=== PATIENT | male | born 1935 | race Caucasian/White ===

== ENCOUNTER 2019-06-12 10:32 | Outpatient (CLI) | payer MEDICARE, BC, SELFPAY ==
--- NOTE | 2019-06-12 | XR_ITS ---
WS: [id number] CERVICAL SPINE 5 VIEWS HISTORY: NECK PAIN ACUTE COMPARISON: 10/05/2007 TECHNIQUE: AP and lateral radiographs. Lateral in neutral, flexion and extension. Marked LEFT convex curvature of the cervical spine. Head is tilted to the RIGHT. C4 and C5 anterolist hesis by 2 mm. With flexion and extension there is no significant change in alignment. Moderate disc space narrowing at C6-7. Significant rotation of the vertebral bodies due to the marked RIGHT bending of the head. The lateral masses of C1 and C2 are aligned and the odontoid is intact. XR/XR cervical spine 4-5V 10968 IMPRESSION: 1. Marked LEFT convex curvature cervical spine with progression since 2007. 2. Minimal anterolisthesis of C4 and C5 without instability during flexion and extension.
== END 2019-06-12 10:33 | disposition home or self-care (01) ==
LOC: RADOUTREAD 15:58
PROVIDERS: Family Provider Internal Medicine; PCP Internal Medicine; Visit Provider Internal Medicine
DX: M43.8X2 Other specified deforming dorsopathies, cervical region (principal); M54.2 Cervicalgia

== ENCOUNTER 2019-06-20 12:27 | Outpatient (CLI) | payer MEDICARE, BC, SELFPAY ==
--- NOTE | 2019-06-20 | XR_ITS ---
WS: [id number] PROCEDURE: XR chest 2V* [id number] CLINICAL INFORMATION: COMMUNITY ACQUIRED PNEMONIA COMPARISON: 2016 FINDINGS: Heart: Cardiomegaly. Large esophageal hiatal hernia with air-fluid level. Aortic calcification. Lungs: Chronic emphysematous changes. No acute pulmonary infiltrates. No focal pneumonia. Bones: Thoracic scoliosis and kyphosis. Left lateral rib fractures with callus formation. XR/XR chest 2V* [id number] IMPRESSION: 1. Cardiomegaly with large esophageal hiatal hernia and air-fluid level appear s unchanged. 2. Chronic emphysematous changes. No acute pulmonary infiltrates. 3. Thoracic scoliosis and kyphosis.
== END 2019-06-20 12:28 | disposition home or self-care (01) ==
PROVIDERS: Family Provider Internal Medicine; PCP Internal Medicine; Visit Provider Internal Medicine
DX: J18.9 Pneumonia, unspecified organism (principal); I51.7 Cardiomegaly; K44.9 Diaphragmatic hernia without obstruction or gangrene; J43.9 Emphysema, unspecified; M41.84 Other forms of scoliosis, thoracic region

== ENCOUNTER 2020-03-02 11:27 | Emergency (ER) | payer MEDICARE, BC, SELFPAY ==
[2020-03-02 11:28] VITALS: PULSE 82; RESP 18; TEMP 37.1; O2SAT 94
--- NOTE | 2020-03-02 11:57 | XRR_ITS ---
PROCEDURE INFORMATION: Exam: XR Right Ribs with PA Chest, 3 Views Exam date and time: 03/02/2020 12:31 PM Age: 84 years old Clinical indication: Pain and injury or trauma; Fall; Initial encounter; Rib area; Blunt trauma (contusions or hematomas); Chest wall pain; Right; Additional info: Fall, rib pain TECHNIQUE: Imaging protocol: XR Right ribs 3 views with PA chest. COMPARISON: CR XR chest 2V* [id number] 06/20/2019 10:57 AM FINDINGS: Lungs: Unremarkable. No consolidation. Pleural space: Unremarkable. No pleural effusion. No pneumothorax. Heart/Mediastinum: Large hiatal hernia. Bones/joints: Chronic fracture surgical neck right humerus Fracture of the 7th rib laterally likely chronic. Fracture of the 4th rib laterally likely chronic. XR/XR ribs RT mn 3V w CXR1V 98150 IMPRESSION: 1. Acute rib fracture not clearly visualized. Old rib fractures. 2. Large hiatal hernia.
--- NOTE | 2020-03-02 11:57 | CT_ITS ---
WS: [id number] CT HEAD NONCONTRAST HISTORY: fall TECHNIQUE: Contiguous axial imaging performed through the brain in 2.5 mm imaging. Bone and soft tiss ue windows. Sagittal and coronal reformats reviewed. All CT scans at [facility] use at ast one of these dose optimization techniques: automated exposure control; mA and/or kV adjustment pe r patient size (includes targeted exams where dose is matched to clinical indication); or iterative r econstruction. DLP: 875.43 mGy.cm COMPARISON: 10/04/2016 No acute intracranial hemorrhage, midline shift or mass effect. Moderate to severe bilateral diffuse atrophy and chronic ischemic changes. Similar to the prior exami nation with mild progression. Additional moderate to severe cerebellar atrophy. Small lacunar infarc t anterior limb RIGHT internal capsule. Ventricles: Ventricles and extra-axial spaces are all prominent due to peripheral and central atroph y. Paranasal sinuses: As visualized are clear. Mastoid air cells: Well pneumatized. Calvarium and scalp: Skull is intact with no soft tissue edema or swelling. CT/CT head wo con* [id number] IMPRESSION: 1. No acute intracranial hemorrhage or edema. 2. Moderate to severe diffuse atrophy and chronic ischemic disease. Mild progr ession since 10/04/2016.
--- NOTE | 2020-03-02 12:11 | PC.NURSE ---
received report from morena simms [facility] care.
[2020-03-02 12:43] VITALS: PULSE 39; RESP 16; O2SAT 97
--- NOTE | 2020-03-02 12:43 | PC.NURSE ---
WHILE AT BEDSIDE PT HR IS [address] BYRON GONZALEZ TO OBTAIN EKG. DELEGATED TASK TO [facility] SHE STATED SHE WOULD OBTAIN EKG DAVID.
--- NOTE | 2020-03-02 13:16 | W.ED.FALL ---
HPI - Fall General: Chief Complaint: Fall Stated Complaint: FALL, RIB PAIN Time Seen by Provider: 03/02/20 11:45 Source: patient and family Mode of arrival: ambulatory Limitations: other (dementia) History of Present Illness: HPI Narrative: Patient is an 84-year-old gentleman with Alzheimer's dementia who presents to the emergency department with his with complaints of left lower chest pain following a fall. According to his the patient has had several falls some of which have been occluded head injuries but today his fall was unwitnessed. She did say that she went to his side immediately after the fall and he did not lose consciousness. The patient is unable to tell me the circumstances surrounding his fall. He complains of left lower rib pain but no difficulty breathing or other symptoms. His wants to be sure he does not have any fractures and so brought him in for evaluation. MD complaint: fall Onset (ago): unknown Fall witnessed: no Place fall occurred: home Loss of consciousness: None Prolonged down time: no Symptoms prior to fall: chest pain (left lower rib pain) Context: other (unknown) Associated symptoms-after fall: Reports chest pain; Denies abdominal pain, headache(s) or neck pain Review of Systems General: Reports: 10 or more systems reviewed and unremarkable except in HPI and below Const: Denies: fever(s), chills or body aches Eyes: Denies: change in vision or blurry vision ENMT: Denies: throat pain, enlarged tonsils, odynophagia, hoarseness, mouth pain or swelling of lips/tongue Card: Reports: chest pain; Denies: palpitations, irregular heart rhythm, edema or swelling of feet/ankles Resp: Denies: dyspnea, productive cough or non-productive cough GI: Denies: abdominal pain, nausea or vomiting : Denies: flank pain, dysuria, urinary frequency, urinary urgency or urinary hesitancy Musc: Denies: neck pain, back pain or extremity swelling Skin/Breast: Denies: rash, pruritus or erythema Neuro: Denies: headache(s), numbness in extremities or weakness in extremities Endo: Denies: polyuria, polydipsia or tired all the time Physical Exam Const: COMMON NORMALS: no acute distress, average body habitus, patient oriented x3, no limitations, healthy appearing, alert and well nourished HENMT: COMMON NORMALS: normocephalic, atraumatic and moist oral mucous membranes HEAD & SCALP: normocephalic and atraumatic Eye: COMMON NORMALS: Equal, round and reactive pupils present, EOMs intact bilaterally, conjunctivae normal and no scleral icterus CONJUNCTIVA: Yes conjunctivae normal PUPIL: Yes Equal, round and reactive pupils present Neck/C-Spine: COMMON NORMALS: full ROM, supple, no meningeal signs, no JVD and No carotid bruits CERVICAL SPINE: No Cervical spine tenderness Chest: COMMONS NORMALS: normal inspection of the chest CHEST: Yes localized rib tenderness with anteroposterior compression (left lower ribs) Resp: COMMON NORMALS: normal respiratory effort, No retractions, No use of accessory muscles, clear to auscultation bilaterally and percussion normal AUSCULTATION: clear to auscultation bilaterally PERCUSSION: percussion normal Cardio: COMMON NORMALS: no JVD, regular rate, regular rhythm, S1 normal heart sound present, S2 normal heart sound present, No gallops present (Cardio), No clicks present (Cardio), No murmurs present (Cardio), No rub (Cardio) and Peripheral pulses 2+ throughout RATE: regular rate RHYTHM: regular rhythm HEART SOUNDS: S1 normal heart sound present and S2 normal heart sound present PERIPHERAL PULSES: Peripheral pulses 2+ throughout GI: COMMON NORMALS: Normal to inspection, nondistended, normoactive bowel sounds present, Soft to palpation, non-tender, No hepatosplenomegaly present, no masses and no bruits PALPATION: Yes Soft to palpation and Yes No hepatosplenomegaly present Extremity: COMMON NORMALS: normal to inspection, full ROM, capillary refill normal, no calf tenderness and no pedal edema Neuro: COMMON NORMALS: patient oriented x3 SENSORIUM/ORIENTATION: Yes alert MENINGEAL SIGNS: Yes no meningeal signs Skin: COMMON NORMALS: no rashes or lesions noted, no wounds, turgor normal, no jaundice, no petechiae and no mottling GENERAL SKIN EXAM: no rashes or lesions noted and turgor normal Course Reevaluation(s): Reevaluation #1: Discussed his imaging findings with the patient and his . Negative for acute findings. Old rib fractures which his states is had in the past. We will discharge him home with no new orders. They voiced understanding and are in agreement with plan Time: 13:20 Vital Signs: Vital signs: Vital Signs Temperature 98.7 F 03/02/20 11:28 Pulse Rate 78 03/02/20 13:36 Respiratory Rate 23 H 03/02/20 13:36 Blood Pressure 170/73 03/02/20 13:36 Pulse Oximetry 96 03/02/20 13:36 MDM - Fall MDM Narrative: Medical decision making narrative: 84-year-old gentleman with repeated falls and who had another fall this morning with associated left rib pain. Evaluation in the emergency department was negative for acute findings and he is discharged home with no new orders. Medical Records: Attestation: I reviewed the patient's medical records. Imaging Data^: CT Head: Attestation: I personally reviewed and interpreted this imaging study as follows: Radiologist's impression: [address] [place] [address] CT Scan Report Signed Patient: Gavin Ortiz #: [id number] : 1936Acct#:[id number] Age/Sex: 84 / MADM Date: 03/02/20 Loc: ERRoom/Bed: Attending Dr: Ordering Provider/Ordering MD: Brayan Pickering MD, [facility] [place] Date of Service: 03/02/20 Procedure(s): CT head wo con* [id number] Accession Number(s): [id number] Report Number: [id number] WS: [id number] CT HEAD NONCONTRAST HISTORY: fall TECHNIQUE: Contiguous axial imaging performed through the brain in 2.5 mm imaging. Bone and soft tissue windows. Sagittal and coronal reformats reviewed. All CT scans at [facility] use at least one of these dose optimization techniques: automated exposure control; mA and/or kV adjustment per patient size (includes targeted exams where dose is matched to clinical indication); or iterative reconstruction. DLP: 875.43 mGy.cm COMPARISON: 10/04/2016 No acute intracranial hemorrhage, midline shift or mass effect. Moderate to severe bilateral diffuse atrophy and chronic ischemic changes. Similar to the prior examination with mild progression. Additional moderate to severe cerebellar atrophy. Small lacunar infarct anterior limb RIGHT internal capsule. Ventricles: Ventricles and extra-axial spaces are all prominent due to peripheral and central atrophy. Paranasal sinuses: As visualized are clear. Mastoid air cells: Well pneumatized. Calvarium and scalp: Skull is intact with no soft tissue edema or swelling. CT/CT head wo con* [id number] IMPRESSION: 1. No acute intracranial hemorrhage or edema. 2. Moderate to severe diffuse atrophy and chronic ischemic disease. Mild progression since 10/04/2016. Dictated By:Raegan Bustos DO Signed By:Raegan Bustos DOSigned Date/Time:03/02/20 1301 DD/ 1258 Other Xray: Attestation: I personally reviewed and interpreted this imaging study as follows: Radiologist's impression: [facility] [address] [place] [address] XRay Report Signed Patient: Gavin Ortiz #: [id number] : 8Acct#:[id number] Age/Sex: 84 / MADM Date: 03/02/20 Loc: ERRoom/Bed: Attending Dr: Ordering Provider/Ordering MD: Brayan Pickering MD, [facility] Date of Service: 03/02/20 Procedure(s): XR ribs RT mn 3V w CXR1V 35743 Accession Number(s): [id number] Report Number: [id number] PROCEDURE INFORMATION: Exam: XR Right Ribs with PA Chest, 3 Views Exam date and time: 03/02/2020 12:31 PM Age: 84 years old Clinical indication: Pain and injury or trauma; Fall; Initial encounter; Rib area; Blunt trauma (contusions or hematomas); Chest wall pain; Right; Additional info: Fall, rib pain TECHNIQUE: Imaging protocol: XR Right ribs 3 views with PA chest. COMPARISON: CR XR chest 2V* [id number] 06/20/2019 10:57 AM FINDINGS: Lungs: Unremarkable. No consolidation. Pleural space: Unremarkable. No pleural effusion. No pneumothorax. Heart/Mediastinum: Large hiatal hernia. Bones/joints: Chronic fracture surgical neck right humerus Fracture of the 7th rib laterally likely chronic. Fracture of the 4th rib laterally likely chronic. XR/XR ribs RT mn 3V w CXR1V [id number] IMPRESSION: 1. Acute rib fracture not clearly visualized. Old rib fractures. 2. Large hiatal hernia. Dictated By:Colten Melendez MD Signed By:Colten Melendez MDSigned Date/Time:03/02/20 1248 DD/ 1246 Discharge Plan Discharge Patient Disposition: Home Clinical Impression: Contusion of rib on left side Qualifiers: Encounter type: initial encounter Qualified Code(s): S20.212A - Contusion of left front wall of thorax, initial encounter Fall Qualifiers: Encounter type: initial encounter Qualified Code(s): W19.XXXA - Unspecified fall, initial encounter Condition: Stable Prescriptions: Continued hydrocodone-acetaminophen 5-325 mg tablet 1 tab PO Q4H PRN (Reason: Pain) RF: 0 alprazolam 0.5 mg tablet 0.5 mg PO BID PRN (Reason: Anxiety) RF: 0 pantoprazole 40 mg tablet,delayed release (DR/EC) 40 mg PO PRN RF: 0 iron 325 mg (65 mg iron) Tablet 325 mg PO DAILY RF: 0 aspirin 81 mg Tablet,Chewable 81 mg PO DAILY RF: 0 Adult Multivitamin Gummies 200 mcg Tablet,Chewable 200 mcg PO DAILY RF: 0 Neuriva 1 tab PO DAILY RF: 0 Zofran 1 tab PO PRN RF: 0 Discharge Orders: Discharge Order (Routine); Ordered 03/02/20 Ordered By: Brayan Pickering Referrals: Roland Pinto DO [Primary Care Provider] - 1-3 days Discharge Diet: Usual diet Discharge Activity: Increase activity as tolerated Patient Instructions: Musculoskeletal Pain (ED), Fall Prevention (ED) Activity Restrictions/Additional Instructions: Return for any new or worsening symptoms. Follow-up with your primary care provider within 3 days. Continue home medications. Discharge Date/Time: 03/02/20 13:50 Coding Level of Care Code ED Cathodic Protection Technician for Chg Fwd Exam Comprehensive
--- NOTE | 2020-03-02 13:34 | PC.NURSE ---
PRIOR TO DC PT CM APPEARED TO SHOW A RHYTHM CHANGE INFORMED DR. BYRON GONZALEZ WITH READ BACK TO CONTINUE WITH DC.
[2020-03-02 13:36] VITALS: BP 170/73; PULSE 78; RESP 23; O2SAT 96
== END 2020-03-02 13:50 | disposition home or self-care (01) ==
PROVIDERS: Emergency Provider Family Medicine; Family Provider Internal Medicine; PCP Internal Medicine
DX: S20.212A Contusion of left front wall of thorax, initial encounter (principal); Z79.82 Long term (current) use of aspirin; W19.XXXA Unspecified fall, initial encounter; G30.9 Alzheimer's disease, unspecified; F02.80 Dementia in other diseases classified elsewhere, unspecified severity, without behavioral disturbance, psychotic disturbance, mood disturbance, and anxiety
CPT/HCPCS: 12345; 70450; 71101; 99281; 99283

== ENCOUNTER 2020-06-01 11:44 | Inpatient (IN) | payer MEDICARE, BC, SELFPAY ==
[2020-06-01] VITALS (54 sets, daily range): BP systolic 80–163; BP diastolic 50–120; PULSE 65–98; RESP 14–33; TEMP 36.4; O2SAT 65–99; BMI 27.9
--- NOTE | 2020-06-01 | CT_ITS ---
WS: [id number] CT HEAD TECHNIQUE: Noncontrast CT of the head obtained from the skullbase to the vertex. CLINICAL INFORMATION: POSSIBLE STROKE COMPARISON: February 23, 2020 DLP: [address] scans at [facility] use at least one of these dose optimization techniques: automat ed exposure control; mA and/or kV adjustment per patient size (includes targeted exams where dose is matched to clinical indication); or iterative reconstruction. FINDINGS: No evidence of intracranial hemorrhage or mass effect. Ventricular system and basal cisterns are hanna nt. Moderate small vessel changes with moderate parenchymal volume loss. No extra-axial fluid collect ions. No evidence of mass or mass effect. Normal ramirez-white differentiation. Polypoid mucosal thickening right maxillary sinus. CT/CT head wo con* [id number] IMPRESSION: 1. No evidence of intracranial hemorrhage or mass effect. 2. Moderate small vessel changes with moderate parenchymal volume loss. 3. No acute intracranial findings. Notified True Michelle DO at 06/01/2020 12:07 PM.
--- NOTE | 2020-06-01 11:56 | XR_ITS ---
WS: [id number] Exam: XR chest 1V portable [id number] Date/Time of Exam: 06/01/2020 11:56 AM Reason For Exam: sob Comparison 03/02/2020. Bilateral airspace and interstitial infiltrates noted most marked on the right. Heart size is normal. Large hiatal hernia. The mediastinum is not widened. No pneumothorax or pleural effusion. Old fractu re of the proximal right humerus. XR/XR chest 1V portable [id number] IMPRESSION: 1. Bilateral pulmonary infiltrates most marked on the right. 2. Large hiatal hernia.
--- NOTE | 2020-06-01 11:57 | ECG_ITS ---
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 Measurements Intervals [place] Rate: 84 P: 42 [place]: 174 QRS: 16 QRSD: 85 T: 52 QT: 396 QTc: 468 Interpretive Statements SINUS RHYTHM POSSIBLE LEFT ATRIAL ENLARGEMENT [-0.1mV P WAVE IN V1/V2] Compared to ECG 03/09/2018 00:08:59 Myocardial infarct finding no longer present Electronically Signed On 06-01-2020 16:50:15 COMMERCIAL LINES ASSISTANT by Anton Covarrubias M.D. [email or web address]
--- NOTE | 2020-06-01 11:58 | W.ED.AMS ---
Documented by User: Katelyn Vera MD 06/02/20 01:02 HPI - Altered Mental Status General: Chief Complaint: Syncope Stated Complaint: POSSIBLE STROKE Time Seen by Provider: 06/01/20 11:56 Source: family and EMS Mode of arrival: EMS Limitations: altered mental status and other (Alzheimer's dementia) History of Present Illness: HPI narrative: 84-year-old male with history of Alzheimer's dementia brought in by EMS after his family noticed he was very weak, has recently had lots of falls, speaking less. The symptoms have been progressive since around May 25. He started having cough yesterday. denies fever, nausea, vomiting. He has difficulty communicating because of his Alzheimer's. He has had decreased intake. Unable to get a full HPI due to patient's mental status. MD complaint: altered mental status, confusion and weakness Onset (ago): day(s) Consistency of symptoms: Getting Worse Review of Systems General: Reports: 10 or more systems reviewed and unremarkable except in HPI and below and ROS unobtainable due to mental status Const: Reports: change in appetite; Denies: fever(s) Resp: Reports: dyspnea and non-productive cough Neuro: Reports: weakness in extremities, lack of coordination, difficulty walking, frequent falls, behavioral changes, Slurred speech present and difficulty communicating thoughts Endo: Denies: polyuria, polydipsia or flushing [facility] ED PFSH: Medical History (Updated 06/01/20 @ 19:24 by Zeynep Banuelos MD) Advanced dementia Chronic kidney disease, stage 3 Closed head injury H/O: GI bleed Surgical History (Updated 06/01/20 @ 19:24 by Zeynep Banuelos MD) History of esophagogastroduodenoscopy (EGD) History of nephrectomy Social History (Updated 06/01/20 @ 19:29 by Zeynep Banuelos MD) Smoking and tobacco status: unknown if ever smoked Alcohol intake: unknown Substance/Drug Use: unknown Physical Exam Const: COMMON NORMALS: average body habitus EXAM LIMITATIONS: altered mental status GENERAL APPEARANCE: in distress, lethargic, ill appearing and frail appearing ORIENTATION/CONSCIOUSNESS: Yes awake and Yes lethargic HENMT: COMMON NORMALS: normocephalic and atraumatic HEAD & SCALP: normocephalic and atraumatic; no Acrocyanosis present FACE & SINUS: normal facial exam and face symmetric; no Acrocyanosis present Eye: COMMON NORMALS: Equal, round and reactive pupils present, conjunctivae normal and no scleral icterus ALIGNMENT: Yes alignment normal CONJUNCTIVA: Yes conjunctivae normal PUPIL: Yes Equal, round and reactive pupils present, No Dilated pupils and No Irregular pupils Neck/C-Spine: COMMON NORMALS: full ROM, no lymphadenopathy and supple Resp: EFFORT & INSPECTION: No able to speak in complete sentences, Yes tachypneic, Yes respiratory distress, Yes labored, No Actively coughing, Yes paradoxical thoraco-abdominal movements and Yes audible wheezes AUSCULTATION: crackles, rales, rhonchi, wheezes and bronchovesicular breath sounds Cardio: COMMON NORMALS: regular rate, regular rhythm and No murmurs present (Cardio) RATE: regular rate RHYTHM: regular rhythm GI: COMMON NORMALS: Soft to palpation; negative for No hepatosplenomegaly present INSPECTION: No abdominal wall ecchymosis PALPATION: Yes Soft to palpation, No Tenderness to palpation present (GI), No Guarding due to palpation present (GI), No Rigid due to palpation, No No hepatosplenomegaly present and No Pulsatile mass present : MALE GROIN/PERINEUM EXAM: No ecchymosis, No edema and No erythema Extremity: COMMON NORMALS: negative for no joint enlargement GENERAL: No cyanosis, No edema and No mottling Neuro: SENSORIUM/ORIENTATION: Yes lethargic and Yes stuporous SPEECH: abnormal speech Details: garbled GAIT: Yes Unable to assess gait MOTOR EXAM: no tremor noted, no asterixis and Motor fasciculations not present Skin: COMMON NORMALS: no rashes or lesions noted and no wounds GENERAL SKIN EXAM: no rashes or lesions noted, no jaundice, no mottling, no petechiae and no purpura LESIONS: lesions noted RASHES: rash noted Course Vital Signs: Vital signs: Vital Signs Temperature 97.6 F 06/01/20 21:45 Pulse Rate 72 06/02/20 00:30 Respiratory Rate 16 06/02/20 00:30 Blood Pressure 102/55 06/02/20 00:30 Pulse Oximetry 96 06/02/20 00:30 MDM - Altered Mental Status MDM Narrative: Medical decision making narrative: 84-year-old male with progressive weakness, difficulty ambulating, shortness of breath. Found to be in acute respiratory distress with hypoxia, O2 sats in the low 80s on full nonrebreather, minimal verbal response but he does have a history of Alzheimer's. Differential diagnosis; sepsis, CVA, pneumonia, COVID-19, dehydration, renal failure, electrolyte abnormality, acute PE, UTI, Chest x-ray shows diffuse bilateral pulmonary infiltrates, worse on the right. Started on cefepime and Zithromax for suspected sepsis secondary to pneumonia. Urinalysis does not suggest UTI Lactic acidwnl Covid swab positive. Decadron 6 mg IV given. Did not have escalating oxygen requirements during the time he was in the ED. His blood pressure also improved with IV fluid Called and updated the family, discussed his poor prognosis and the need to discuss advanced directives. At this time they still request that we perform all necessary measures including CPR and intubation if necessary. Discussed the case with Dr Calzada, hospitalist for the VICU, at this time there is no open beds so he will remain in the ED. He will be transition to high flow nasal cannula. He is much more responsive on exam, sitting up and waving at people outside of the room. He still has significant work of breathing, and is disoriented however. He does have history of Alzheimer's so this may be his baseline. Differential Diagnosis: Differential diagnosis altered mental status: Likely sepsis Medical Records: Attestation: I reviewed the patient's medical records. Lab Data: Attestation: I reviewed the patient's lab results. Labs: Lab Results 06/01/20 06/01/20 06/01/20 Range/Units 12:09 12:09 12:09 WBC 12.6 H (4.0-10.0) 10^3/ uL RBC 4.81 (4.1-5.3) 10^6/u L Hgb 13.7 (11.7-16.6) g/dL Hct 43.3 (42.0-52.0) % MCV 90.0 (80-94) fL MCH 28.5 (28.0-34.0) pg MCHC 31.6 (30.0-36.0) g/dL RDW 13.8 (12.1-15.1) % Plt Count 175 (130-400) 10^3/c mm MPV 11.0 H (7.4-10.4) fL Neut % (Auto) 90.6 % Lymph % (Auto) 2.5 % Blaine % (Auto) 4.1 % Eos % (Auto) 1.0 % Baso % (Auto) 0.2 % Neut # (Auto) 11.39 H (1.8-7.7) 10^3/u L Lymph # (Auto) 0.3 L (0.8-4.8) 10^3/u L Blaine # (Auto) 0.5 (0.2-0.9) 10^3/u L Eos # (Auto) 0.1 (0.0-0.8) 10^3/u L Baso # (Auto) 0.0 (0.0-0.1) 10^3/u L Nucleated RBC % (a uto) 0 % Nucleated RBCs # 0.0 /100WBC PT 12.80 (12.1-14.9) SECO NDS INR 0.93 (0.8-1.2) D-Dimer (0-0.59) ug/mIFE U Specimen Type Sample Site ABG pH (7.35-7.45) ABG pCO2 (35-45) mmHg ABG pO2 (80.0-100.0) mmH g ABG HCO3 (22-26) mmol/L ABG O2 Saturation ABG Base Excess (-2.0-2.0) mmol/ L Iraj Test A-a O2 Gradient (5-10) mmHg Hematocrit (42-52) % Hgb O2 Saturation (95-100) % Carboxyhemoglobin (0.4-20.1) %THgb Methemoglobin (0.4-1.5) % Total Hemoglobin (14-18) g/dL Ionized Calcium (1.1-1.4) mmol/L O2 Delivery Device FiO2 % Street Department Dispatcher ID Sodium 140 (136-145) mmol/L Potassium 3.9 (3.5-5.1) mmol/L Chloride 103 (98-107) mmol/L Carbon Dioxide 25 (22-29) mmol/L Anion Gap 15.9 (5-19) BUN 25 H (8-23) mg/dL Creatinine 1.5 H (0.7-1.2) mg/dL GFR Calculation Not Reportable Glucose 90 (65-115) mg/dL Calculated Osmolal ity 294 (285-295) mOsm/k g Lactate (0.5-2.2) mmol/L Calcium 8.2 L (8.5-10.5) mg/dL Magnesium 2.0 (1.7-2.3) mg/dL Total Bilirubin 0.3 (0.15-1.2) mg/dL AST 46 H (0-40) U/L ALT 21 (0-41) U/L Alkaline Phosphata se 122 (40-130) IU/L C-Reactive Protein 131.0 H (0.0-4.9) mg/L NT-Pro-B Natriuret Pep 1441 H (0-450) pg/mL Total Protein 5.8 L (6.6-8.7) g/dL Albumin 3.1 L (3.5-5.2) g/dL Globulin 2.7 (1.3-4.6) g/dL Procalcitonin 0.69 H (0-0.5) ng/mL Urine Color (Yellow) Urine Appearance (CLEAR) Urine pH (5-7) Ur Specific Gravit y (1.005-1.030) Urine Protein (Negative) Urine Glucose (UA) (Normal) Urine Ketones (Negative) Urine Blood (Negative) Urine Nitrate (Negative) Urine Bilirubin (Negative) Urine Urobilinogen (Negative) mg/dL Ur Leukocyte Sahra ase (Negative) Urine RBC (0-2) /hpf Urine WBC (0-5) /hpf Ur Squamous Epith Cells (0-5) /hpf Amorphous Sediment /hpf Urine Bacteria (NONE) /hpf Hyaline Casts /lpf Other Casts /lpf SARS-CoV-2 Ag (Rap id) (Negative) 06/01/20 06/01/20 06/01/20 Range/Units 12:09 12:09 12:32 WBC (4.0-10.0) 10^3/ uL RBC (4.1-5.3) 10^6/u L Hgb (11.7-16.6) g/dL Hct (42.0-52.0) % MCV (80-94) fL MCH (28.0-34.0) pg MCHC (30.0-36.0) g/dL RDW (12.1-15.1) % Plt Count (130-400) 10^3/c mm MPV (7.4-10.4) fL Neut % (Auto) % Lymph % (Auto) % Blaine % (Auto) % Eos % (Auto) % Baso % (Auto) % Neut # (Auto) (1.8-7.7) 10^3/u L Lymph # (Auto) (0.8-4.8) 10^3/u L Blaine # (Auto) (0.2-0.9) 10^3/u L Eos # (Auto) (0.0-0.8) 10^3/u L Baso # (Auto) (0.0-0.1) 10^3/u L Nucleated RBC % (a uto) % Nucleated RBCs # /100WBC PT (12.1-14.9) SECO NDS INR (0.8-1.2) D-Dimer 1.36 H (0-0.59) ug/mIFE U Specimen Type Arterial Sample Site Radial, left ABG pH 7.33 L (7.35-7.45) ABG pCO2 49.0 H (35-45) mmHg ABG pO2 61.5 L (80.0-100.0) mmH g ABG HCO3 25.9 (22-26) mmol/L ABG O2 Saturation 90.8 ABG Base Excess -0.6 (-2.0-2.0) mmol/ L Iraj Test Pos A-a O2 Gradient 78.1 H (5-10) mmHg Hematocrit 40.6 L (42-52) % Hgb O2 Saturation 89.2 L (95-100) % Carboxyhemoglobin 1.0 (0.4-20.1) %THgb Methemoglobin 0.8 (0.4-1.5) % Total Hemoglobin 13.3 L (14-18) g/dL Ionized Calcium 1.1 (1.1-1.4) mmol/L O2 Delivery Device Nrb FiO2 100.0 % Street Department Dispatcher ID [email or web address] Sodium 139.0 (136-145) mmol/L Potassium 4.0 (3.5-5.1) mmol/L Chloride (98-107) mmol/L Carbon Dioxide (22-29) mmol/L Anion Gap (5-19) BUN (8-23) mg/dL Creatinine (0.7-1.2) mg/dL GFR Calculation Glucose 96.0 (65-115) mg/dL Calculated Osmolal ity (285-295) mOsm/k g Lactate 1.3 (0.5-2.2) mmol/L Calcium (8.5-10.5) mg/dL Magnesium (1.7-2.3) mg/dL Total Bilirubin (0.15-1.2) mg/dL AST (0-40) U/L ALT (0-41) U/L Alkaline Phosphata se (40-130) IU/L C-Reactive Protein (0.0-4.9) mg/L NT-Pro-B Natriuret Pep (0-450) pg/mL Total Protein (6.6-8.7) g/dL Albumin (3.5-5.2) g/dL Globulin (1.3-4.6) g/dL Procalcitonin (0-0.5) ng/mL Urine Color (Yellow) Urine Appearance (CLEAR) Urine pH (5-7) Ur Specific Gravit y (1.005-1.030) Urine Protein (Negative) Urine Glucose (UA) (Normal) Urine Ketones (Negative) Urine Blood (Negative) Urine Nitrate (Negative) Urine Bilirubin (Negative) Urine Urobilinogen (Negative) mg/dL Ur Leukocyte Sahra ase (Negative) Urine RBC (0-2) /hpf Urine WBC (0-5) /hpf Ur Squamous Epith Cells (0-5) /hpf Amorphous Sediment /hpf Urine Bacteria (NONE) /hpf Hyaline Casts /lpf Other Casts /lpf SARS-CoV-2 Ag (Rap id) (Negative) 06/01/20 06/01/20 Range/Units 12:55 13:34 WBC (4.0-10.0) 10^3/ uL RBC (4.1-5.3) 10^6/u L Hgb (11.7-16.6) g/dL Hct (42.0-52.0) % MCV (80-94) fL MCH (28.0-34.0) pg MCHC (30.0-36.0) g/dL RDW (12.1-15.1) % Plt Count (130-400) 10^3/c mm MPV (7.4-10.4) fL Neut % (Auto) % Lymph % (Auto) % Blaine % (Auto) % Eos % (Auto) % Baso % (Auto) % Neut # (Auto) (1.8-7.7) 10^3/u L Lymph # (Auto) (0.8-4.8) 10^3/u L Blaine # (Auto) (0.2-0.9) 10^3/u L Eos # (Auto) (0.0-0.8) 10^3/u L Baso # (Auto) (0.0-0.1) 10^3/u L Nucleated RBC % (a uto) % Nucleated RBCs # /100WBC PT (12.1-14.9) SECO NDS INR (0.8-1.2) D-Dimer (0-0.59) ug/mIFE U Specimen Type Sample Site ABG pH (7.35-7.45) ABG pCO2 (35-45) mmHg ABG pO2 (80.0-100.0) mmH g ABG HCO3 (22-26) mmol/L ABG O2 Saturation ABG Base Excess (-2.0-2.0) mmol/ L Iraj Test A-a O2 Gradient (5-10) mmHg Hematocrit (42-52) % Hgb O2 Saturation (95-100) % Carboxyhemoglobin (0.4-20.1) %THgb Methemoglobin (0.4-1.5) % Total Hemoglobin (14-18) g/dL Ionized Calcium (1.1-1.4) mmol/L O2 Delivery Device FiO2 % Street Department Dispatcher ID Sodium (136-145) mmol/L Potassium (3.5-5.1) mmol/L Chloride (98-107) mmol/L Carbon Dioxide (22-29) mmol/L Anion Gap (5-19) BUN (8-23) mg/dL Creatinine (0.7-1.2) mg/dL GFR Calculation Glucose (65-115) mg/dL Calculated Osmolal ity (285-295) mOsm/k g Lactate (0.5-2.2) mmol/L Calcium (8.5-10.5) mg/dL Magnesium (1.7-2.3) mg/dL Total Bilirubin (0.15-1.2) mg/dL AST (0-40) U/L ALT (0-41) U/L Alkaline Phosphata se (40-130) IU/L C-Reactive Protein (0.0-4.9) mg/L NT-Pro-B Natriuret Pep (0-450) pg/mL Total Protein (6.6-8.7) g/dL Albumin (3.5-5.2) g/dL Globulin (1.3-4.6) g/dL Procalcitonin (0-0.5) ng/mL Urine Color Yellow (Yellow) Urine Appearance Hazy A (CLEAR) Urine pH 5 (5-7) Ur Specific Gravit y 1.020 (1.005-1.030) Urine Protein Neg (Negative) Urine Glucose (UA) Norm (Normal) Urine Ketones Negative (Negative) Urine Blood Neg (Negative) Urine Nitrate Negative (Negative) Urine Bilirubin Neg (Negative) Urine Urobilinogen 1 H (Negative) mg/dL Ur Leukocyte Sahra ase Negative (Negative) Urine RBC 0-4 H (0-2) /hpf Urine WBC None (0-5) /hpf Ur Squamous Epith Cells 0-4 H (0-5) /hpf Amorphous Sediment 1+ /hpf Urine Bacteria 1+ H (NONE) /hpf Hyaline Casts 0-4 H /lpf Other Casts Waxy /lpf SARS-CoV-2 Ag (Rap id) Positive H (Negative) Imaging Data^: CXR: Attestation: I personally reviewed and interpreted this imaging study as follows: My impression: Bilateral diffuse pulmonary infiltrates, EKG Data^: EKG 1: Attestation: I personally reviewed and interpreted this EKG as follows: EKG interpretation date: 06/01/20 EKG interpretation time: 12:33 Prior EKG tracings: not available for review Interpretation: Normal sinus rhythm, rate 84, CT 174, normal axis No acute ST segment elevation or depression. ABG Data^: ABG Interpretation 1: ABG results: pH 7.33, PCO2 49, PaO2 61; on 12L NRB Attestation: I personally reviewed and interpreted this ABG as follows: Interpretation: Respiratory acidosis Critical Care Time Critical Care Time: Critical Care Time: Yes Total Critical Care Time: 60 Attestation: This case had a high probability of a clinically significant, sudden, or life threatening deterioration of this patient's condition which required my full and direct attention, intervention and personal management. Acute respiratory failure with hypoxia Sepsis and septic shock due to pneumonia Discharge Plan Discharge Patient Disposition: Admitted As Inpatient Admit Provider: Zeynep Banuelos Clinical Impression: COVID-19 virus infection, Acute hypoxemic respiratory failure Pneumonia Qualifiers: Pneumonia type: due to unspecified organism Laterality: bilateral Lung location: unspecified part of lung Qualified Code(s): J18.9 - Pneumonia, unspecified organism Condition: Stable Coding Level of Care Code ED Steel Rigger for Chg Fwd Exam Comprehensive Documented by User: Zeynep Banuelos MD 06/01/20 22:55 HPI - Altered Mental Status General: Chief Complaint: Syncope Stated Complaint: POSSIBLE STROKE Time Seen by Provider: 06/01/20 11:56 PFSH ED PFSH: Medical History (Updated 06/01/20 @ 19:24 by Zeynep Banuelos MD) Advanced dementia Chronic kidney disease, stage 3 Closed head injury H/O: GI bleed Surgical History (Updated 06/01/20 @ 19:24 by Zeynep Banuelos MD) History of esophagogastroduodenoscopy (EGD) History of nephrectomy Social History (Updated 06/01/20 @ 19:29 by Zeynep Banuelos MD) Smoking and tobacco status: unknown if ever smoked Alcohol intake: unknown Substance/Drug Use: unknown Course Vital Signs: Vital signs: Vital Signs Temperature 97.6 F 06/01/20 21:45 Pulse Rate 72 06/02/20 00:30 Respiratory Rate 16 06/02/20 00:30 Blood Pressure 102/55 06/02/20 00:30 Pulse Oximetry 96 06/02/20 00:30 MDM - Altered Mental Status Lab Data: Labs: Lab Results 06/01/20 06/01/20 06/01/20 Range/Units 12:09 12:09 12:09 WBC 12.6 H (4.0-10.0) 10^3/ uL RBC 4.81 (4.1-5.3) 10^6/u L Hgb 13.7 (11.7-16.6) g/dL Hct 43.3 (42.0-52.0) % MCV 90.0 (80-94) fL MCH 28.5 (28.0-34.0) pg MCHC 31.6 (30.0-36.0) g/dL RDW 13.8 (12.1-15.1) % Plt Count 175 (130-400) 10^3/c mm MPV 11.0 H (7.4-10.4) fL Neut % (Auto) 90.6 % Lymph % (Auto) 2.5 % Blaine % (Auto) 4.1 % Eos % (Auto) 1.0 % Baso % (Auto) 0.2 % Neut # (Auto) 11.39 H (1.8-7.7) 10^3/u L Lymph # (Auto) 0.3 L (0.8-4.8) 10^3/u L Blaine # (Auto) 0.5 (0.2-0.9) 10^3/u L Eos # (Auto) 0.1 (0.0-0.8) 10^3/u L Baso # (Auto) 0.0 (0.0-0.1) 10^3/u L Nucleated RBC % (a uto) 0 % Nucleated RBCs # 0.0 /100WBC PT 12.80 (12.1-14.9) SECO NDS INR 0.93 (0.8-1.2) D-Dimer (0-0.59) ug/mIFE U Specimen Type Sample Site ABG pH (7.35-7.45) ABG pCO2 (35-45) mmHg ABG pO2 (80.0-100.0) mmH g ABG HCO3 (22-26) mmol/L ABG O2 Saturation ABG Base Excess (-2.0-2.0) mmol/ L Iraj Test A-a O2 Gradient (5-10) mmHg Hematocrit (42-52) % Hgb O2 Saturation (95-100) % Carboxyhemoglobin (0.4-20.1) %THgb Methemoglobin (0.4-1.5) % Total Hemoglobin (14-18) g/dL Ionized Calcium (1.1-1.4) mmol/L O2 Delivery Device FiO2 % Street Department Dispatcher ID Sodium 140 (136-145) mmol/L Potassium 3.9 (3.5-5.1) mmol/L Chloride 103 (98-107) mmol/L Carbon Dioxide 25 (22-29) mmol/L Anion Gap 15.9 (5-19) BUN 25 H (8-23) mg/dL Creatinine 1.5 H (0.7-1.2) mg/dL GFR Calculation Not Reportable Glucose 90 (65-115) mg/dL Calculated Osmolal ity 294 (285-295) mOsm/k g Lactate (0.5-2.2) mmol/L Calcium 8.2 L (8.5-10.5) mg/dL Magnesium 2.0 (1.7-2.3) mg/dL Total Bilirubin 0.3 (0.15-1.2) mg/dL AST 46 H (0-40) U/L ALT 21 (0-41) U/L Alkaline Phosphata se 122 (40-130) IU/L C-Reactive Protein 131.0 H (0.0-4.9) mg/L NT-Pro-B Natriuret Pep 1441 H (0-450) pg/mL Total Protein 5.8 L (6.6-8.7) g/dL Albumin 3.1 L (3.5-5.2) g/dL Globulin 2.7 (1.3-4.6) g/dL Procalcitonin 0.69 H (0-0.5) ng/mL Urine Color (Yellow) Urine Appearance (CLEAR) Urine pH (5-7) Ur Specific Gravit y (1.005-1.030) Urine Protein (Negative) Urine Glucose (UA) (Normal) Urine Ketones (Negative) Urine Blood (Negative) Urine Nitrate (Negative) Urine Bilirubin (Negative) Urine Urobilinogen (Negative) mg/dL Ur Leukocyte Sahra ase (Negative) Urine RBC (0-2) /hpf Urine WBC (0-5) /hpf Ur Squamous Epith Cells (0-5) /hpf Amorphous Sediment /hpf Urine Bacteria (NONE) /hpf Hyaline Casts /lpf Other Casts /lpf SARS-CoV-2 Ag (Rap id) (Negative) 06/01/20 06/01/20 06/01/20 Range/Units 12:09 12:09 12:32 WBC (4.0-10.0) 10^3/ uL RBC (4.1-5.3) 10^6/u L Hgb (11.7-16.6) g/dL Hct (42.0-52.0) % MCV (80-94) fL MCH (28.0-34.0) pg MCHC (30.0-36.0) g/dL RDW (12.1-15.1) % Plt Count (130-400) 10^3/c mm MPV (7.4-10.4) fL Neut % (Auto) % Lymph % (Auto) % Blaine % (Auto) % Eos % (Auto) % Baso % (Auto) % Neut # (Auto) (1.8-7.7) 10^3/u L Lymph # (Auto) (0.8-4.8) 10^3/u L Blaine # (Auto) (0.2-0.9) 10^3/u L Eos # (Auto) (0.0-0.8) 10^3/u L Baso # (Auto) (0.0-0.1) 10^3/u L Nucleated RBC % (a uto) % Nucleated RBCs # /100WBC PT (12.1-14.9) SECO NDS INR (0.8-1.2) D-Dimer 1.36 H (0-0.59) ug/mIFE U Specimen Type Arterial Sample Site Radial, left ABG pH 7.33 L (7.35-7.45) ABG pCO2 49.0 H (35-45) mmHg ABG pO2 61.5 L (80.0-100.0) mmH g ABG HCO3 25.9 (22-26) mmol/L ABG O2 Saturation 90.8 ABG Base Excess -0.6 (-2.0-2.0) mmol/ L Iraj Test Pos A-a O2 Gradient 78.1 H (5-10) mmHg Hematocrit 40.6 L (42-52) % Hgb O2 Saturation 89.2 L (95-100) % Carboxyhemoglobin 1.0 (0.4-20.1) %THgb Methemoglobin 0.8 (0.4-1.5) % Total Hemoglobin 13.3 L (14-18) g/dL Ionized Calcium 1.1 (1.1-1.4) mmol/L O2 Delivery Device Nrb FiO2 100.0 % Street Department Dispatcher ID [email or web address] Sodium 139.0 (136-145) mmol/L Potassium 4.0 (3.5-5.1) mmol/L Chloride (98-107) mmol/L Carbon Dioxide (22-29) mmol/L Anion Gap (5-19) BUN (8-23) mg/dL Creatinine (0.7-1.2) mg/dL GFR Calculation Glucose 96.0 (65-115) mg/dL Calculated Osmolal ity (285-295) mOsm/k g Lactate 1.3 (0.5-2.2) mmol/L Calcium (8.5-10.5) mg/dL Magnesium (1.7-2.3) mg/dL Total Bilirubin (0.15-1.2) mg/dL AST (0-40) U/L ALT (0-41) U/L Alkaline Phosphata se (40-130) IU/L C-Reactive Protein (0.0-4.9) mg/L NT-Pro-B Natriuret Pep (0-450) pg/mL Total Protein (6.6-8.7) g/dL Albumin (3.5-5.2) g/dL Globulin (1.3-4.6) g/dL Procalcitonin (0-0.5) ng/mL Urine Color (Yellow) Urine Appearance (CLEAR) Urine pH (5-7) Ur Specific Gravit y (1.005-1.030) Urine Protein (Negative) Urine Glucose (UA) (Normal) Urine Ketones (Negative) Urine Blood (Negative) Urine Nitrate (Negative) Urine Bilirubin (Negative) Urine Urobilinogen (Negative) mg/dL Ur Leukocyte Sahra ase (Negative) Urine RBC (0-2) /hpf Urine WBC (0-5) /hpf Ur Squamous Epith Cells (0-5) /hpf Amorphous Sediment /hpf Urine Bacteria (NONE) /hpf Hyaline Casts /lpf Other Casts /lpf SARS-CoV-2 Ag (Rap id) (Negative) 06/01/20 06/01/20 Range/Units 12:55 13:34 WBC (4.0-10.0) 10^3/ uL RBC (4.1-5.3) 10^6/u L Hgb (11.7-16.6) g/dL Hct (42.0-52.0) % MCV (80-94) fL MCH (28.0-34.0) pg MCHC (30.0-36.0) g/dL RDW (12.1-15.1) % Plt Count (130-400) 10^3/c mm MPV (7.4-10.4) fL Neut % (Auto) % Lymph % (Auto) % Blaine % (Auto) % Eos % (Auto) % Baso % (Auto) % Neut # (Auto) (1.8-7.7) 10^3/u L Lymph # (Auto) (0.8-4.8) 10^3/u L Blaine # (Auto) (0.2-0.9) 10^3/u L Eos # (Auto) (0.0-0.8) 10^3/u L Baso # (Auto) (0.0-0.1) 10^3/u L Nucleated RBC % (a uto) % Nucleated RBCs # /100WBC PT (12.1-14.9) SECO NDS INR (0.8-1.2) D-Dimer (0-0.59) ug/mIFE U Specimen Type Sample Site ABG pH (7.35-7.45) ABG pCO2 (35-45) mmHg ABG pO2 (80.0-100.0) mmH g ABG HCO3 (22-26) mmol/L ABG O2 Saturation ABG Base Excess (-2.0-2.0) mmol/ L Iraj Test A-a O2 Gradient (5-10) mmHg Hematocrit (42-52) % Hgb O2 Saturation (95-100) % Carboxyhemoglobin (0.4-20.1) %THgb Methemoglobin (0.4-1.5) % Total Hemoglobin (14-18) g/dL Ionized Calcium (1.1-1.4) mmol/L O2 Delivery Device FiO2 % Street Department Dispatcher ID Sodium (136-145) mmol/L Potassium (3.5-5.1) mmol/L Chloride (98-107) mmol/L Carbon Dioxide (22-29) mmol/L Anion Gap (5-19) BUN (8-23) mg/dL Creatinine (0.7-1.2) mg/dL GFR Calculation Glucose (65-115) mg/dL Calculated Osmolal ity (285-295) mOsm/k g Lactate (0.5-2.2) mmol/L Calcium (8.5-10.5) mg/dL Magnesium (1.7-2.3) mg/dL Total Bilirubin (0.15-1.2) mg/dL AST (0-40) U/L ALT (0-41) U/L Alkaline Phosphata se (40-130) IU/L C-Reactive Protein (0.0-4.9) mg/L NT-Pro-B Natriuret Pep (0-450) pg/mL Total Protein (6.6-8.7) g/dL Albumin (3.5-5.2) g/dL Globulin (1.3-4.6) g/dL Procalcitonin (0-0.5) ng/mL Urine Color Yellow (Yellow) Urine Appearance Hazy A (CLEAR) Urine pH 5 (5-7) Ur Specific Gravit y 1.020 (1.005-1.030) Urine Protein Neg (Negative) Urine Glucose (UA) Norm (Normal) Urine Ketones Negative (Negative) Urine Blood Neg (Negative) Urine Nitrate Negative (Negative) Urine Bilirubin Neg (Negative) Urine Urobilinogen 1 H (Negative) mg/dL Ur Leukocyte Sahra ase Negative (Negative) Urine RBC 0-4 H (0-2) /hpf Urine WBC None (0-5) /hpf Ur Squamous Epith Cells 0-4 H (0-5) /hpf Amorphous Sediment 1+ /hpf Urine Bacteria 1+ H (NONE) /hpf Hyaline Casts 0-4 H /lpf Other Casts Waxy /lpf SARS-CoV-2 Ag (Rap id) Positive H (Negative) Discharge Plan Discharge Patient Disposition: Admitted As Inpatient Admit Provider: Zeynep Banuelos Clinical Impression: COVID-19 virus infection, Acute hypoxemic respiratory failure Pneumonia Qualifiers: Pneumonia type: due to unspecified organism Laterality: bilateral Lung location: unspecified part of lung Qualified Code(s): J18.9 - Pneumonia, unspecified organism Condition: Stable Coding Level of Care Code ED [facility] for [facility] Fwd Exam Comprehensive
[2020-06-01 12:17] LABS: Basophils % 0.2 %; Eosinophils # 0.1 10^3/uL (0.0-0.8); Hematocrit 43.3 % (42.0-52.0); Hemoglobin 13.7 g/dL (11.7-16.6); Lymphocytes # 0.3 10^3/uL (0.8-4.8); Lymphocytes % 2.5 %; Mean Corpuscular HGB Conc 31.6 g/dL (30.0-36.0); Mean Corpuscular Hemoglobin 28.5 pg (28.0-34.0); Monocytes # 0.5 10^3/uL (0.2-0.9); Monocytes % 4.1 %; Neutrophils # 11.39 10^3/uL (1.8-7.7); Neutrophils % 90.6 %; Nucleated Red Blood Cells % 0 %; Platelet Count 175 10^3/cmm (130-400); Red Blood Count 4.81 10^6/uL (4.1-5.3); Red Cell Distribution Width 13.8 % (12.1-15.1); White Blood Count 12.6 10^3/uL (4.0-10.0)
[2020-06-01 12:28] LABS: INR 0.93 (0.8-1.2)
[2020-06-01 12:35] LABS: Lactate (Lactic Acid level) 1.3 mmol/L (0.5-2.2)
[2020-06-01 12:43] LABS: ABG PH Result 7.33 (7.35-7.45); Alveolar-Arterial Oxygen Gradi 78.1 mmHg (5-10); Arterial Blood Gas Hematocrit 40.6 % (42-52); Base Excess ABG -0.6 mmol/L (-2.0-2.0); Blood Gas Allen Test Pos; Blood Gas Sample Site Radial, left; Blood Gas Sample Type Arterial; HCO3 ABG 25.9 mmol/L (22-26); HGB O2 Sat 89.2 % (95-100); Ionized Calcium Level - ABG 1.1 mmol/L (1.1-1.4); Methemoglobin 0.8 % (0.4-1.5); Oxygen Device NRB; Oxygen Saturation ABG 90.8; PO2 ABG 61.5 mmHg (80.0-100.0); Total Hemoglobin 13.3 g/dL (14-18)
[2020-06-01 12:45] LABS: NT Pro B Type Natriuretic Pept 1441 pg/mL (0-450); Procalcitonin 0.69 ng/mL (0-0.5)
[2020-06-01 12:56] LABS: Alanine Aminotransferase 21 U/L (0-41); Albumin Level 3.1 g/dL (3.5-5.2); Alkaline Phosphatase 122 IU/L (40-130); Anion Gap 15.9 (5-19); Aspartate Amino Transferase 46 U/L (0-40); Blood Urea Nitrogen 25 mg/dL (8-23); Calcium 8.2 mg/dL (8.5-10.5); Carbon Dioxide 25 mmol/L (22-29); Chloride 103 mmol/L (98-107); Globulin 2.7 g/dL (1.3-4.6); Glucose 90 mg/dL (65-115); Osmolality Calculated 294 mOsm/kg (285-295); Potassium 3.9 mmol/L (3.5-5.1); Sodium 140 mmol/L (136-145); Total Bilirubin 0.3 mg/dL (0.15-1.2); Total Protein 5.8 g/dL (6.6-8.7)
[2020-06-01] MEDS: sodium chloride 0.9% 1,000 ML 999 ML IV ×2 (13:33→23:00)
[2020-06-01] MEDS: cefepime 2,000 MG in sodium chloride 0.9% (plus) 50 ML 100 MG IV (13:33)
[2020-06-01] MEDS: azithromycin 500 MG in sodium chloride 0.9% 250 ML 250 MG IV (13:34)
[2020-06-01 14:02] LABS: SARS Covid-2 Antigen Positive (Negative)
[2020-06-01] MEDS: dexamethasone 4 mg/mL INJ 6 MG IVP (14:36)
[2020-06-01 15:05] LABS: Add Urine Microscopic? YES; Bilirubin Urine Neg (Negative); Blood Urine Neg (Negative); Glucose Urine UA Norm (Normal); Ketones Urine Negative (Negative); Leukocyte Esterase Urine Negative (Negative); Nitrate Urine Negative (Negative); Protein Urine Neg (Negative); Urine Appearance Hazy (CLEAR); Urine Color Yellow (Yellow); Urobilinogen Urine 1 mg/dL (Negative); pH Urine 5 (5-7)
[2020-06-01 15:07] LABS: Amorphous Sediment Urine 1+ /hpf; Bacteria Urine 1+ /hpf; Hyaline Casts Urine 0-4 /lpf; RBC Urine 0-4 /hpf (0-2); Squamous Epithelial Cell Urine 0-4 /hpf (0-5)
[2020-06-01 15:08] LABS: Add Urine Culture? No; Other Casts Urine WAXY /lpf
--- NOTE | 2020-06-01 17:58 | P.HP_ITS ---
Providers/Chief Complaint Primary Care Provider: Roland Pinto DO Chief Complaint: POSSIBLE STROKE History of Present Illness 84-year-old male with a past medical history significant significant for closed head injury, osteoporosis, anxiety, depression, iron deficiency knee anemia, obstructive sleep apnea, hiatal hernia,hyperlipidemia,, hypertension, chronic stage 3 kidney disease s/p prior right nephrectomy, jehovah witness with prior GI bleed (refused transfusions in the past) and advanced dementia who presented to the hospital with generalized weakness. Patient does not communicate and at baseline is confused due to dementia. He was not able to provide history which was obtained from review of records and discussion with ER staff. Patient upon arrival to ER his initial laboratory workup showed a WBC of 12.6, hemoglobin of 13.7, hematocrit of 43.3 and platelet count of 175. INR of 0.83. Sodium 140, potassium 3.9, chloride 103, bicarb 25, BUN 25 and creatinine 1.5. Prior creatinine in 2018 was 1.3. AST of 45, ALT of 21, ALP of 122, CRP of 131. ProNBP of 1441 and a procalcitonin of 0.69. COVID-19 ag was found to be positive. Imaging studies included a CT head without contrast which did not show any evidence of acute intra-cranial abnormality. Chest x-ray was then performed which showed bilateral rates most marked on the right. Was noted to be hypoxic with O2 sats in low to mid 80s. He was also tachypneic with a blood pressure of 88/61. Was placed on 15L o2 via NRB. ABG after this intervention showed a pH 7.33, pCO2 49.0, PO2 of 61.5 and bicarb 25.9. Oxygen saturation ABG was 90.8. In ER he was given cefepime 2 g IV x 1 and azithromycin 500 mg IV x 1 in addition to decadron 6 mg IV x 1 Patient at the time of my eval was quite confused and at times pulling his mask off. He was placed on heated high-flow nasal cannula. Patient was very likely to require intubation and initiation of mechanical ventilation due to current Covid-19 pneumonia with both hypoxemia and hypoxia with inability to cooperate with treatment plan due to advanced dementia. This was discussed with patient's family including his who is the DPOA, daughter and son. Risk versus benefit was discussed multiple times. Advised maintain Full Code status and proceed with intubation showed he continue to decline. Review of Systems General: Reports: ROS unobtainable due to medical condition and ROS unobtainable due to mental status Medications/Allergies Home Medications Medication Instructions Recorded Confirmed Last Taken Type Adult Multivitamin Gummies 200 mcg PO DAILY@0900 03/02/20 06/01/20 Unknown History Neuriva 1 tab PO DAILY 03/02/20 06/01/20 03/01/20 History Zofran 1 tab PO PRN 03/02/20 06/01/20 Unknown History alprazolam 0.5 mg PO BID PRN 03/02/20 06/01/20 Unknown History aspirin 81 mg PO DAILY 03/02/20 06/01/20 03/01/20 History ferrous sulfate [iron] 325 mg PO DAILY 03/02/20 06/01/20 03/01/20 History hydrocodone-acetaminophen 1 tab PO Q4H PRN 03/02/20 06/01/20 06/01/20 History pantoprazole 40 mg PO PRN 03/02/20 06/01/20 Unknown History finasteride 5 mg PO DAILY 06/01/20 06/01/20 Unknown History ibuprofen 200 mg PO Q6H PRN 06/01/20 06/01/20 06/01/20 History simvastatin 20 mg PO DAILY 06/01/20 06/01/20 Unknown History Allergies Allergy/AdvReac Type Severity Reaction Status Date / Time No Known Allergies Allergy Verified 03/02/20 12:54 PFSH Acute PFSH: Medical History (Updated 06/01/20 @ 19:24 by Zeynep Banuelos MD) Advanced dementia Chronic kidney disease, stage 3 Closed head injury H/O: GI bleed Surgical History (Updated 06/01/20 @ 19:24 by Zeynep Banuelos MD) History of esophagogastroduodenoscopy (EGD) History of nephrectomy Social History (Updated 06/01/20 @ 19:29 by Zeynep Banuelos MD) Smoking and tobacco status: unknown if ever smoked Alcohol intake: unknown Substance/Drug Use: unknown Vitals/I&O/Wt Last Vital Signs Pulse 77 06/01/20 17:45 Resp 20 H 06/01/20 17:45 BP 88/61 06/01/20 11:59 Pulse Ox 92 06/01/20 17:45 Weight last 48 hrs Weight 88.451 kg Physical Exam Narrative: EXAM NARRATIVE: General : Chronically ill appearing in mod respiratory distress. HEENT: Grossly unremarkable CVS: NSR Chest: Labored respiration ABD : Non-distended Ext : No edema Psych : uncooperative nonverbal Data : 06/01/20 12:09 06/01/20 12:09 Micro: Microbiology 06/01/20 14:09 Blood Culture - Preliminary Blood SPECIMEN COLLECTED 06/01/20 14:03 Blood Culture - Preliminary Blood SPECIMEN COLLECTED A&P Assessment and plan (1) Acute hypoxemic respiratory failure: Status: Acute (2) Pneumonia: Status: Acute Qualifiers: Laterality: bilateral Lung location: unspecified part of lung Pneumonia type: due to unspecified organism Qualified Code(s): J18.9 - Pneumonia, unspecified organism (3) COVID-19 virus infection: Status: Acute (4) H/O: GI bleed: Status: Inactive (5) Advanced dementia: Status: Inactive (6) Acute worsening of stage 3 chronic kidney disease: Status: Acute (7) Closed head injury: Status: Inactive (8) Adult failure to thrive: Status: Acute Acute respiratory failure with hypoxemia & hypercapnia due to COVID19 pneumonia - ABG -> 7.33, pCO2 0 49.0, pO2- 61.5, HCO3- 25.9 on 15L via NRB - Check D-dimer stat now - If high will need to consider CTA chest PE protocol vs V/Q scan depending on renal function. - Decadron 6 mg IV daily x 10 days - Remdesivir 200 mg IV x 1 now then 100 mg IV daily x 4 days - Procalcitonin 0.6 - > can not entirely rule out superimposed bacterial infection - Will empirically start on Zosyn 3.375g IV q8hr and vancomycin pharmacy to dose - Follow up on blood culture x 2 - Obtain sputum culture if able to - Chest x-ray and ABG in am - Transitioned to HFNC in ER - Patient uncooperative with NRB, likley to to not tolerate HFNC. This was d iscussed with patients family and advised if no other option to proceed with intubation - May consider low dose Precedex on HFNC or BIPAP - Consider pulmonary medicine consult Acute on chronic stage 2-3 kidney failure - Hx of Right sided nephrectomy ( unclear ) - Baseline creatinine ranging from 1.3-1.4 - Currently slightly up at 1.5 - Patient was given NS bolus in ER - Will monitor off IVF - Cautious IVF due to suspected HF - BNP elevated - May require dieresis - Monitor urine output - Bladder scan q6hr and straight cath for > 200 vs possible Mondragon placement - Repeat BMP in am Hx of Iron deficiency anemia due to GI Bleed - Noted in 2013 - Was not transfused as patient is jehovahs witness and refused - WIll monitor h/h while on prophylactic dose of anticoagulation Additional Medical History - Hypertnesion - Dyslpididemia - Advanced dementia - Obstructive sleep apnea - Large Hiatal Her melvi - Hx of Closed Head injury Will need to verfy home meds with family or pharmacy in am GI ppx - Pepcid 20 mg IV BID DVT ppx - Heparin 5000 units q8hr - stop if h/h decreases or GI bleed noted. Prognosis : Guarded CODE STATUS - FULL CODE Attestations Medical Necessity Statement*: Patient medicine the hospital with acute hypoxemic respiratory failure due to COVID-19 pneumonia and acute renal insufficiency on likely chronic. Anticipate over 2 midnights stay in hospital for evaluation and treatment. Time Spent in Patient Care: Greater than 35 minutes (>than 50% of time spe nt in counselling and/or direct pt care on unit) . Critical Care Time: Critical Care Time (min): 65 Coding Level of Care Code Acute Account Development Manager for [facility] Fwd Diagnoses Acute hypoxemic respiratory failure J96.01 Pneumonia J18.9 Laterality: bilateral Lung location: unspecified part of lung Pneumonia type: due to unspecified organism COVID-19 virus infection U07.1 H/O: GI bleed Z87.19 Advanced dementia F03.90 Acute worsening of stage 3 chronic kidney disease N18.30 Closed head injury S09.90XA Adult failure to thrive R62.7
[2020-06-01] MEDS: heparin 5,000 unit/mL INJ 1 mL 5000 UNIT SUBCUT (18:46)
[2020-06-01] MEDS: famotidine 20 mg/2 mL INJ IVP (18:47)
[2020-06-01] MEDS: remdesivir 200 MG in sodium chloride 0.9% (100 ml) 100 ML 100 MG IV (19:09)
[2020-06-01 19:34] LABS: D Dimer 1.36 ug/mIFEU (0-0.59)
--- NOTE | 2020-06-01 20:04 | PC.NURSE ---
pt is not keeping oxygen on. I advised the pt to keep the oxygen on and to pt said he didnt want to keep it on, advised him to put it back in his nose, he said he didnt want it in his nose,I told him to put it in his mouth and pt said he did not want to put it in his mouth. Notified Dr Vera. pt O2 sat 63%
[2020-06-01] MEDS: LORazepam 2 mg/mL INJ 1 mL 0.5 MG IVP (20:33)
--- NOTE | 2020-06-01 22:47 | XR_ITS ---
WS: [id number] Exam: XR chest 1V portable [id number] Date/Time of Exam: 06/01/2020 10:58 PM Reason For Exam: intubation Comparison 06/01/2020 at 1157 hours. Bilateral pulmonary infiltrates show little change since previous study. An ET tube is been placed an d ends at about the level of the T1-T2 disc. The tube should be advanced another 3 to 4 cm for optima l position. The lungs appear to be adequately ventilated. An enteric tube is looped in the region of the lower esophagus with the tip directed back cephalad. Monitoring leads superimpose the chest. The lungs remain fully inflated. Normal cardiomediastinal structures. XR/XR chest 1V portable [id number] IMPRESSION: 1. High placement of the ET tube ending at about the level of the T1-T2 disc [place]. The tube should be advanced another 3 to 4 cm for optimal position. 2. Enteric tube looped in the lower esophagus with the tip directed back cephal ad.
[2020-06-01] MEDS: vecuronium 10 mg SDV IVP (23:08)
[2020-06-02] VITALS (282 sets, daily range): BP systolic 66–147; BP diastolic 44–92; PULSE 57–111; RESP 14–19; TEMP 35.9–36.2; O2SAT 86–100; BMI 25.1
--- NOTE | 2020-06-02 00:16 | PC.NURSE ---
[id number] mendoza about patient with Elias mayorga like breathing on Heated high flow o2 at 100%. orders recieved to prepare for intubation. [id number] called explained the reason for intubation and she stated, [id number] want everything posssible done to save him. Intubated at 2310.
--- NOTE | 2020-06-02 01:15 | PM.ACPR ---
Procedure/Consent Time out: Time Out Performed: Yes (Consent taken from ) Consent: Consent for Procedure: Consent obtained from other (indicate) Procedure Narrative: Secondary to hypoxia and tachypnea respiratory rate in 40s despite being on high flow decision was made to intubate the patient consent was taken from his Acute Procedures Epistaxis Control: Time out performed: Yes (Consent taken from ) Intubation: Time out performed: Yes Sedative: etomidate Mg given: 20 Paralytic: rocuronium Mg given: 100 Assist device used: fiber optic device ET tube size: 8 ET tube uncuffed: No Tube secured depth (cm): 24 Tube secured location: teeth Tube placement confirmation: visualized tube passing through cords, equal breath sounds bilaterally, confirmation by capnometry and color change noted Patient tolerated procedure: no complications Additional comments: Post intubation PRVC vent settings PEEP 12, FiO2 100%, respiratory 12, tidal volume 500, he was saturating 90 to 91%, was getting normal saline bolus which was started before intubation for preload support Post intubation chest x-ray revealed endotracheal tube slightly above clavicle, it was advanced 4 cm currently endotracheal tube is at 29 cm secured at teeth
[2020-06-02] MEDS: ipratropium-albuterol 3 mL Neb INHALATION ×4 (02:54→19:24)
[2020-06-02] MEDS: heparin 5,000 unit/mL INJ 1 mL 5000 UNIT SUBCUT ×3 (02:57→18:48)
[2020-06-02 03:46] LABS: ABG PCO2 50.2 mmHg (35-45); ABG PH Result 7.26 (7.35-7.45); Arterial Blood Gas Hematocrit 48.7 % (42-52); Blood Gas Allen Test Pos; Blood Gas Sample Type Arterial; HCO3 ABG 22.5 mmol/L (22-26)
[2020-06-02 03:49] LABS: Blood Gas Operator Identificat JB; Blood Gas Sample Site Radial, left; Blood Gas Tidal Volume 0.45; Oxygen Device VENT
[2020-06-02 03:52] LABS: Basophils # 0.1 10^3/uL (0.0-0.1); Basophils % 0.3 %; Hematocrit 41.5 % (42.0-52.0); Hemoglobin 13.3 g/dL (11.7-16.6); Lymphocytes # 0.5 10^3/uL (0.8-4.8); Lymphocytes % 2.6 %; Mean Corpuscular Hemoglobin 28.4 pg (28.0-34.0); Mean Corpuscular Volume 88.5 fL (80-94); Monocytes # 0.4 10^3/uL (0.2-0.9); Monocytes % 2.2 %; Neutrophils # 18.44 10^3/uL (1.8-7.7); Neutrophils % 92.8 %; Nucleated Red Blood Cells % 0 %; Platelet Count 199 10^3/cmm (130-400); Red Blood Count 4.69 10^6/uL (4.1-5.3); Red Cell Distribution Width 14.1 % (12.1-15.1); White Blood Count 19.9 10^3/uL (4.0-10.0)
[2020-06-02 04:25] LABS: Magnesium 2.2 mg/dL (1.7-2.3)
--- NOTE | 2020-06-02 04:31 | PC.NURSE ---
Time out preformed for intubation at 2200.
[2020-06-02 04:33] LABS: Blood Urea Nitrogen 30 mg/dL (8-23); Calcium 7.7 mg/dL (8.5-10.5); Carbon Dioxide 20 mmol/L (22-29); Chloride 107 mmol/L (98-107); Glucose 181 mg/dL (65-115); NT Pro B Type Natriuretic Pept 1676 pg/mL (0-450); Osmolality Calculated 299 mOsm/kg (285-295); Sodium 139 mmol/L (136-145)
[2020-06-02 04:34] LABS: Anion Gap 16.9 (5-19); Potassium 4.9 mmol/L (3.5-5.1)
[2020-06-02] MEDS: famotidine 20 mg/2 mL INJ IVP ×2 (05:58→19:22)
--- NOTE | 2020-06-02 06:29 | PC.NURSE ---
Precedex and one time fenanyl given to on coming day nurse.
[2020-06-02] MEDS: dexmedetomidine 400 MCG in sodium chloride 0.9% (100 ml) 100 ML IV (07:34)
--- NOTE | 2020-06-02 10:58 | XRR_ITS ---
PROCEDURE INFORMATION: Exam: XR Chest, 1 View Exam date and time: 06/02/2020 11:23 AM Age: 84 years old Clinical indication: Device placement; Ng tube; Patient HX: Verify og placement. Possible stroke TECHNIQUE: Imaging protocol: XR of the chest Views: 1 view. COMPARISON: CR XR chest 1V portable [id number] 06/01/2020 11:19 PM FINDINGS: Tubes, catheters and devices: An endotracheal tube is present with its tip 3 cm above the dea. An orogastric tube is present with its tip projecting at the gastroesophageal junction at the level of the diaphragm. Further advancement into the stomach is advised. Lungs: Extensive bilateral interstitial pulmonary infiltrates are present. Pleural space: Unremarkable. No pleural effusion. No pneumothorax. Heart/Mediastinum: Unremarkable. No cardiomegaly. Bones/joints: Unremarkable. XR/XR chest 1V portable [id number] IMPRESSION: 1. The tip of the orogastric tube is at the level of the diaphragm and advancement into the stomach is advised. 2. Satisfactory endotracheal tube position. 3. Prominent bilateral interstitial pulmonary infiltrates.
--- NOTE | 2020-06-02 10:59 | PC.NURSE ---
Upon assessment, patient is burping and dry heaving. Nurse inserted OG tube. Symptoms Ceased after hooked up to intermittent suction. Chest Xray ordered to verify Placement. Dr bazan aware.
[2020-06-02 11:21] LABS: Glucose Point of Care 197 mg/dL (70-110)
--- NOTE | 2020-06-02 11:22 | P.PN_ITS ---
Subjective Subjective: Interval history: 84-year-old male with a past medical history significant significant for closed head injury, osteoporosis, anxiety, depression, iron deficiency knee anemia, obstructive sleep apnea, hiatal hernia,hyperlipidemia,, hypertension, chronic stage 3 kidney disease s/p prior right nephrectomy, jehovah witness with prior GI bleed (refused transfusions in the past) and advanced dementia who presented to the hospital with generalized weakness. Patient does not communicate and at baseline is confused due to dementia. He was not able to provide history which was obtained from review of records and discussion with ER staff. Patient upon arrival to ER his initial laboratory workup showed a WBC of 12.6, hemoglobin of 13.7, hematocrit of 43.3 and platelet count of 175. INR of 0.83. Sodium 140, potassium 3.9, chloride 103, bicarb 25, BUN 25 and creatinine 1.5. Prior creatinine in 2018 was 1.3. AST of 45, ALT of 21, ALP of 122, CRP of 131. ProNBP of 1441 and a procalcitonin of 0.69. COVID-19 ag was found to be positive. Imaging studies included a CT head without contrast which did not show any evidence of acute intra-cranial abnormality. Chest x-ray was then performed which showed bilateral rates most marked on the right. Was noted to be hypoxic with O2 sats in low to mid 80s. He was also tachypneic with a blood pressure of 88/61. Was placed on 15L o2 via NRB. ABG after this intervention showed a pH 7.33, pCO2 49.0, PO2 of 61.5 and bicarb 25.9. Oxygen saturation ABG was 90.8. In ER he was given cefepime 2 g IV x 1 and azithromycin 500 mg IV x 1 in addition to decadron 6 mg IV x 1 06/02/20 Shortly after admission patient was intubated and placed on mechanical vent. He was started on precedex and fentanyl for sedation. Additionally started on levophed due to hypotension. Medications: Reviewed: Yes Vitals/I&O/Wt Last Vital Signs Temp 96.7 F L 06/02/20 08:00 Pulse 70 06/02/20 10:35 Resp 14 06/02/20 10:10 BP 111/82 06/02/20 10:35 Pulse Ox 94 06/02/20 10:35 06/01/20 06/02/20 06/02/20 22:59 06:59 14:59 Intake Total 0 / 0 1006.567 / 1006.567 84.018 / 84.018 Output Total 200 / 200 300 / 500 Balance -200 / -200 706.567 / 506.567 84.018 / 84.018 Weight last 48 hrs Weight 79.379 kg Weight 88.451 kg Physical Exam Narrative: EXAM NARRATIVE: General : Chronically ill appearing in mod respiratory distress. HEENT: Grossly unremarkable CVS: NSR Chest: Labored respiration ABD : Non-distended Ext : No edema Psych : uncooperative nonverbal Urinary Catheter Management^: Mondragon: Cath Placed During This Visit: yes Urinary Catheter Date of Insertion: 06/01/20 Urinary Catheter Time of Insertion: 22:10 Data : 06/02/20 03:35 06/02/20 03:35 Micro: Microbiology 06/01/20 14:09 Blood Culture - Preliminary Blood SPECIMEN COLLECTED 06/01/20 14:03 Blood Culture - Preliminary Blood SPECIMEN COLLECTED A&P Assessment and plan (1) Acute hypoxemic respiratory failure: Status: Acute (2) Pneumonia: Status: Acute Qualifiers: Laterality: bilateral Lung location: unspecified part of lung Pneumonia type: due to unspecified organism Qualified Code(s): J18.9 - Pneumonia, unspecified organism (3) COVID-19 virus infection: Status: Acute (4) H/O: GI bleed: Status: Inactive (5) Advanced dementia: Status: Inactive (6) Acute worsening of stage 3 chronic kidney disease: Status: Acute (7) Closed head injury: Status: Inactive (8) Adult failure to thrive: Status: Acute Acute respiratory failure with hypoxemia & hypercapnia due to COVID19 pneumonia on mechanical ventilation - ABG -> 7.33, pCO2 0 49.0, pO2- 61.5, HCO3- 25.9 on 15L via NRB - D-dimer, mildly elevated - Decadron 6 mg IV daily x 10 days - Remdesivir 200 mg IV x 1 now then 100 mg IV daily x 4 days - Currently on day 2 - Procalcitonin 0.6 - > can not entirely rule out superimposed bacterial infection - Will empirically start on Zosyn 3.375g IV q8hr and vancomycin pharmacy to dose - Follow up on blood culture x 2 - Obtain sputum culture - Chest x-ray and ABG in am - Continue current vent settings - Continue current sedation protocol - Precedex / Fentanly - Will consider pulmonary consult Hypotension - Due to sedative in setting of sepsis - Levophed ggt - Titrate to keep Map > 65 - Additional bolus of IVF given - Repeat BMP in am Acute on chronic stage 2-3 kidney failure - Hx of Right sided nephrectomy ( unclear ) - Baseline creatinine ranging from 1.3-1.4 - Currently slightly up at 1.5 - 1.4 - Cautious IVF due to suspected HF - BNP elevated - May require dieresis - Monitor urine output - Bladder scan q6hr and straight cath for > 200 vs possible Mondragon placement - Repeat BMP in am Hx of Iron deficiency anemia due to GI Bleed - Noted in 2013 - Was not transfused as patient is jehovahs witness and refused - WIll monitor h/h while on prophylactic dose of anticoagulation - H/H stable - 13.4 today Additional Medical History - Hypertnesion - Dyslpididemia - Advanced dementia - Obstructive sleep apnea - Large Hiatal Her melvi - Hx of Closed Head injury GI ppx - Pepcid 20 mg IV BID DVT ppx - Heparin 5000 units q8hr - stop if h/h decreases or GI bleed noted. Prognosis : Guarded CODE STATUS - FULL CODE Attestations Medical Necessity Statement*: Continue hospitalization for management of hypoxic respiratory failure due to COVID-19 pneumonia Time Spent in Patient Care: Greater than 35 minutes (>than 50% of time spent in counselling and/or direct pt care on unit) . Coding Level of Care Code Acute Wallpaper Hanger for [facility] Fwd Diagnoses Acute hypoxemic respiratory failure J96.01 Pneumonia J18.9 Laterality: bilateral Lung location: unspecified part of lung Pneumonia type: due to unspecified organism COVID-19 virus infection U07.1 H/O: GI bleed Z87.19 Advanced dementia F03.90 Acute worsening of stage 3 chronic kidney disease N18.30 Closed head injury S09.90XA Adult failure to thrive R62.7
--- NOTE | 2020-06-02 11:43 | PC.NURSE ---
IV to Left AC has infiltrated. IV had Levophed running into it. Nurse aspirated line, alerted physician, and received order for terbutaline to be injected subq around infiltration site.
[2020-06-02] MEDS: sodium chloride 0.9% 500 ML 999 ML IV (12:35)
[2020-06-02 16:55] LABS: Glucose Point of Care 173 mg/dL (70-110)
[2020-06-02 17:03] LABS: Influenza A by IFA Negative (Negative); Influenza B by IFA Negative (Negative)
[2020-06-02] MEDS: dexmedetomidine 400 MCG in sodium chloride 0.9% (100 ml) 100 ML 6.9 MCG IV ×2 (17:49→23:32)
[2020-06-02] MEDS: remdesivir 100 MG in sodium chloride 0.9% (100 ml) 100 ML IV (18:41)
[2020-06-02] MEDS: dexamethasone 4 mg/mL INJ 6 MG IVP (18:43)
--- NOTE | 2020-06-02 22:43 | PC.NURSE ---
Needed another IV site, inserted 22g to right wrist.
--- NOTE | 2020-06-02 23:56 | PC.NURSE ---
Patient remains resting in bed, very alert for being intubated. Drips running per protocol. Call light within reach. Continue care.
[2020-06-03] VITALS (261 sets, daily range): BP systolic 85–130; BP diastolic 46–82; PULSE 68–104; RESP 14–25; TEMP 37.1–37.2; O2SAT 80–97; BMI 26.3
[2020-06-03] MEDS: heparin 5,000 unit/mL INJ 1 mL 5000 UNIT SUBCUT ×3 (03:01→17:32)
[2020-06-03 04:00] LABS: ABG PCO2 43.4 mmHg (35-45); ABG PH Result 7.33 (7.35-7.45); Arterial Blood Gas Hematocrit 37.4 % (42-52); Base Excess ABG -2.9 mmol/L (-2.0-2.0); Blood Gas Allen Test Pos; Blood Gas Operator Identificat CAK; Blood Gas Sample Site Radial, right; Blood Gas Sample Type Arterial; Blood Gas Tidal Volume 0.55; Oxygen Device VENT; PO2 ABG 74.9 mmHg (80.0-100.0)
[2020-06-03] MEDS: dexmedetomidine 400 MCG in sodium chloride 0.9% (100 ml) 100 ML 6.9 MCG IV (04:40)
[2020-06-03] MEDS: famotidine 20 mg/2 mL INJ IVP ×2 (05:40→17:32)
[2020-06-03 05:42] LABS: Basophils % 0.1 %; Hematocrit 38.2 % (42.0-52.0); Hemoglobin 12.1 g/dL (11.7-16.6); Lymphocytes # 0.3 10^3/uL (0.8-4.8); Lymphocytes % 1.8 %; Mean Corpuscular HGB Conc 31.7 g/dL (30.0-36.0); Mean Corpuscular Hemoglobin 28.5 pg (28.0-34.0); Mean Corpuscular Volume 89.9 fL (80-94); Mean Platelet Volume 11.6 fL (7.4-10.4); Monocytes # 0.5 10^3/uL (0.2-0.9); Monocytes % 3.6 %; Neutrophils # 13.75 10^3/uL (1.8-7.7); Neutrophils % 92.6 %; Nucleated Red Blood Cells % 0 %; Platelet Count 208 10^3/cmm (130-400); Red Blood Count 4.25 10^6/uL (4.1-5.3); Red Cell Distribution Width 14.4 % (12.1-15.1); White Blood Count 14.9 10^3/uL (4.0-10.0)
[2020-06-03 06:05] LABS: D Dimer 15.88 ug/mIFEU (0-0.59)
[2020-06-03 06:15] LABS: Alanine Aminotransferase 18 U/L (0-41); Albumin Level 2.4 g/dL (3.5-5.2); Alkaline Phosphatase 102 IU/L (40-130); Aspartate Amino Transferase 26 U/L (0-40); Blood Urea Nitrogen 38 mg/dL (8-23); Calcium 7.6 mg/dL (8.5-10.5); Carbon Dioxide 22 mmol/L (22-29); Chloride 108 mmol/L (98-107); Glucose 148 mg/dL (65-115); Osmolality Calculated 302 mOsm/kg (285-295); Sodium 140 mmol/L (136-145); Total Bilirubin 0.3 mg/dL (0.15-1.2); Total Protein 5.4 g/dL (6.6-8.7)
[2020-06-03 06:22] LABS: Procalcitonin 1.25 ng/mL (0-0.5)
--- NOTE | 2020-06-03 06:26 | PC.NURSE ---
Uneventful shift: Levophed off all night. OG tube unable to be placed with multiple attempts from nurse.
[2020-06-03 06:39] LABS: Ferritin 379 ng/mL (30-400)
[2020-06-03] MEDS: ipratropium-albuterol 3 mL Neb INHALATION ×3 (07:15→19:10)
[2020-06-03] MEDS: sodium chloride 0.9% 1,000 ML 50 ML IV (10:34)
[2020-06-03] MEDS: piperacillin-tazobactam 3.375 GM in sodium chloride 0.9% (plus) 50 ML IV ×2 (10:34→18:10)
[2020-06-03] MEDS: vancomycin 1,000 MG in sodium chloride 0.9% 250 ML 250 MG IV (10:35)
[2020-06-03] MEDS: dexmedetomidine 400 MCG in sodium chloride 0.9% (100 ml) 100 ML 16.1 MCG IV ×2 (12:41→21:12)
[2020-06-03] MEDS: midazolam 1 mg/mL INJ 2 mL 2 MG IVP ×2 (12:45→22:05)
--- NOTE | 2020-06-03 15:26 | PM.PN ---
Subjective Subjective: Interval history: 84-year-old male with a past medical history significant significant for closed head injury, osteoporosis, anxiety, depression, iron deficiency knee anemia, obstructive sleep apnea, hiatal hernia,hyperlipidemia,, hypertension, chronic stage 3 kidney disease s/p prior right nephrectomy, jehovah witness with prior GI bleed (refused transfusions in the past) and advanced dementia who presented to the hospital with generalized weakness. Patient does not communicate and at baseline is confused due to dementia. He was not able to provide history which was obtained from review of records and discussion with ER staff. Patient upon arrival to ER his initial laboratory workup showed a WBC of 12.6, hemoglobin of 13.7, hematocrit of 43.3 and platelet count of 175. INR of 0.83. Sodium 140, potassium 3.9, chloride 103, bicarb 25, BUN 25 and creatinine 1.5. Prior creatinine in 2018 was 1.3. AST of 45, ALT of 21, ALP of 122, CRP of 131. ProNBP of 1441 and a procalcitonin of 0.69. COVID-19 ag was found to be positive. Imaging studies included a CT head without contrast which did not show any evidence of acute intra-cranial abnormality. Chest x-ray was then performed which showed bilateral rates most marked on the right. Was noted to be hypoxic with O2 sats in low to mid 80s. He was also tachypneic with a blood pressure of 88/61. Was placed on 15L o2 via NRB. ABG after this intervention showed a pH 7.33, pCO2 49.0, PO2 of 61.5 and bicarb 25.9. Oxygen saturation ABG was 90.8. In ER he was given cefepime 2 g IV x 1 and azithromycin 500 mg IV x 1 in addition to decadron 6 mg IV x 1 06/02/20 Shortly after admission patient was intubated and placed on mechanical vent. He was started on precedex and fentanyl for sedation. Additionally started on levophed due to hypotension. 06/03/2020 Overnight patient remained on mechanical ventilation. Patient was agitated wants briefly weaned from sedation. Required addition of her side. No fever Medications: Reviewed: Yes Vitals/I&O/Wt Last Vital Signs Temp 98.9 F 06/03/20 12:00 Pulse 74 06/03/20 15:20 Resp 14 06/03/20 15:08 BP 121/71 06/03/20 13:15 Pulse Ox 94 06/03/20 15:08 06/03/20 06/03/20 06/03/20 06:59 14:59 22:59 Intake Total 181.765 / 769.644 3829.558 / 2454.558 Output Total 1300 / 1300 1300 / 1300 Balance -1118.235 / -421.666 9826.558 / 1154.558 Weight last 48 hrs Weight 83.234 kg Weight 79.379 kg Physical Exam Narrative: EXAM NARRATIVE: General : on vent sedated HEENT: ET tube CVS: NSR Chest: vent ABD : Non-distende Ext : No edema Psych : Sedated Urinary Catheter Management^: Mondragon: Cath Placed During This Visit: yes Reason for Continuing Indwelling Catheter: Accurate Measurement of Urinary Output in Critically Ill Patients Urinary Catheter Date of Insertion: 06/01/20 Urinary Catheter Time of Insertion: 22:10 Data : 06/03/20 04:15 06/03/20 04:15 Micro: Microbiology 06/02/20 10:13 Gram Stain - Final Sputum - Endotracheal Tube Aspirate Sputum Culture - Preliminary 06/01/20 14:09 Blood Culture - Preliminary Blood NEGATIVE TO DATE 06/01/20 14:03 Blood Culture - Preliminary Blood NEGATIVE TO DATE A&P Assessment and plan (1) Acute hypoxemic respiratory failure: Status: Acute (2) Pneumonia: Status: Acute Qualifiers: Laterality: bilateral Lung location: unspecified part of lung Pneumonia type: due to unspecified organism Qualified Code(s): J18.9 - Pneumonia, unspecified organism (3) COVID-19 virus infection: Status: Acute (4) Acute worsening of stage 3 chronic kidney disease: Status: Acute (5) Adult failure to thrive: Status: Acute Acute respiratory failure with hypoxemia & hypercapnia due to COVID19 pneumonia on mechanical ventilation - D-dimer, mildly elevated - Decadron 6 mg IV daily x 10 days - Remdesivir 200 mg IV x 1 now then 100 mg IV daily x 4 days - Currently on day 2 - Procalcitonin 0.6 - > can not entirely rule out superimposed bacterial infection - Continue Zosyn 3.375g IV q8hr and vancomycin pharmacy to dose - Follow up on blood culture x 2 - NGTD - Obtain sputum culture - NO growth - Chest x-ray and ABG in am - Continue current vent settings - Continue current sedation protocol - Precedex / Fentanly / add fentayl - Will consider pulmonary consult Acute on chronic stage 2-3 kidney failure - Hx of Right sided nephrectomy ( unclear ) - Baseline creatinine ranging from 1.3-1.4 - Currently incrreased to 1.8 - Started on IVF - May require dieresis once stable - Monitor urine output - Bladder scan q6hr and straight cath for > 200 vs possible Mondragon placement - Repeat BMP in am - Consider nephrology consult Hx of Iron deficiency anemia due to GI Bleed - Noted in 2013 - Was not transfused as patient is jehovahs witness and refused - WIll monitor h/h while on prophylactic dose of anticoagulation - H/H stable - 13.4 - repeat in am Additional Medical History - Hypertnesion - Dyslpididemia - Advanced dementia - Obstructive sleep apnea - Large Hiatal Her melvi - Hx of Closed Head injury GI ppx - Pepcid 20 mg IV BID DVT ppx - Heparin 5000 units q8hr - stop if h/h decreases or GI bleed noted. Prognosis : Guarded CODE STATUS - FULL CODE Attestations Medical Necessity Statement*: for require ongoing hospitalization for management of respiratory failure requiring mechanical ventilation, acute on chronic renal insufficiency as suspected secondary bacterial pneumonia. Time Spent in Patient Care: Greater than 35 minutes (>than 50% of time spent in counselling and/or direct pt care on unit). 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
[2020-06-03 16:11] LABS: ABG PH Result 7.33 (7.35-7.45); Alveolar-Arterial Oxygen Gradi 21.7 mmHg (5-10); Arterial Blood Gas Hematocrit 38.3 % (42-52); Blood Gas Allen Test Pos; Blood Gas Operator Identificat MONRO; Blood Gas Sample Site Radial, left; Blood Gas Sample Type Arterial; Blood Gas Tidal Volume 0.55; Carboxyhemoglobin 0.6 %THgb (0.4-20.1); HCO3 ABG 23.1 mmol/L (22-26); HGB O2 Sat 90.8 % (95-100); Ionized Calcium Level - ABG 1.2 mmol/L (1.1-1.4); Methemoglobin 0.9 % (0.4-1.5); Oxygen Saturation ABG 92.2; PO2 ABG 64.6 mmHg (80.0-100.0); Potassium Level - ABG 4.3 mmol/L (3.5-5.0); Total Hemoglobin 12.5 g/dL (14-18)
[2020-06-03] MEDS: remdesivir 100 MG in sodium chloride 0.9% (100 ml) 100 ML IV (17:20)
[2020-06-03] MEDS: dexamethasone 4 mg/mL INJ 6 MG IVP (17:32)
[2020-06-04] VITALS (306 sets, daily range): BP systolic 95–157; BP diastolic 42–90; PULSE 75–121; RESP 7–21; TEMP 36.3–37.1; O2SAT 76–95; BMI 26.2
[2020-06-04] MEDS: ipratropium-albuterol 3 mL Neb INHALATION ×5 (00:14→20:01)
[2020-06-04] MEDS: midazolam 1 mg/mL INJ 2 mL 2 MG IVP ×3 (01:52→21:16)
[2020-06-04] MEDS: heparin 5,000 unit/mL INJ 1 mL 5000 UNIT SUBCUT ×3 (01:53→18:03)
[2020-06-04] MEDS: piperacillin-tazobactam 3.375 GM in sodium chloride 0.9% (plus) 50 ML IV ×3 (03:58→18:05)
[2020-06-04 04:34] LABS: Basophils % 0.1 %; Hematocrit 34.2 % (42.0-52.0); Hemoglobin 10.4 g/dL (11.7-16.6); Lymphocytes # 0.2 10^3/uL (0.8-4.8); Lymphocytes % 2.3 %; Mean Corpuscular HGB Conc 30.4 g/dL (30.0-36.0); Mean Corpuscular Volume 91.9 fL (80-94); Mean Platelet Volume 10.8 fL (7.4-10.4); Monocytes # 0.5 10^3/uL (0.2-0.9); Monocytes % 4.5 %; Neutrophils # 9.11 10^3/uL (1.8-7.7); Neutrophils % 90.7 %; Nucleated Red Blood Cells % 0 %; Platelet Count 160 10^3/cmm (130-400); Red Blood Count 3.72 10^6/uL (4.1-5.3); Red Cell Distribution Width 14.6 % (12.1-15.1)
[2020-06-04 04:55] LABS: Alanine Aminotransferase 13 U/L (0-41); Albumin Level 2.2 g/dL (3.5-5.2); Alkaline Phosphatase 88 IU/L (40-130); Anion Gap 12.4 (5-19); Aspartate Amino Transferase 16 U/L (0-40); Blood Urea Nitrogen 33 mg/dL (8-23); Carbon Dioxide 22 mmol/L (22-29); Chloride 115 mmol/L (98-107); Globulin 2.5 g/dL (1.3-4.6); Glucose 164 mg/dL (65-115); Osmolality Calculated 311 mOsm/kg (285-295); Potassium 4.4 mmol/L (3.5-5.1); Sodium 145 mmol/L (136-145); Total Bilirubin 0.2 mg/dL (0.15-1.2); Total Protein 4.7 g/dL (6.6-8.7)
[2020-06-04] MEDS: dexmedetomidine 400 MCG in sodium chloride 0.9% (100 ml) 100 ML 16.1 MCG IV ×2 (05:45→11:45)
[2020-06-04] MEDS: famotidine 20 mg/2 mL INJ IVP ×2 (06:40→21:20)
[2020-06-04] MEDS: sodium chloride 0.9% 1,000 ML 50 ML IV (08:59)
[2020-06-04] MEDS: vancomycin 1,000 MG in sodium chloride 0.9% 250 ML 250 MG IV (09:55)
--- NOTE | 2020-06-04 10:20 | PC.NURSE ---
Started weaning trial. Nurse has been decreasing fentanyl. As fentanyl is decreasing, patient has become increasingly agitate. Nurse administered 2 mg of the PRN versed for agitation.
--- NOTE | 2020-06-04 13:16 | PC.NURSE ---
While attempting to provide oral care to the patient, he bites down on tube and pulls away, preventing performing moistened swabs to the inside of the mouth. Patient does tolerate moistening of the lips.
--- NOTE | 2020-06-04 13:30 | PC.SOCIAL ---
IMM Page 2 of IMM explained to patient's spouse by phone. Initialed, dated, and timed and will be sent to medical records to be scanned into patient's EHR upon discharge.
--- NOTE | 2020-06-04 15:37 | P.PN_ITS ---
Subjective Subjective: Interval history: 84-year-old male with a past medical history significant significant for closed head injury, osteoporosis, anxiety, depression, iron deficiency knee anemia, obstructive sleep apnea, hiatal hernia,hyperlipidemia,, hypertension, chronic stage 3 kidney disease s/p prior right nephrectomy, jehovah witness with prior GI bleed (refused transfusions in the past) and advanced dementia who presented to the hospital with generalized weakness. Patient does not communicate and at baseline is confused due to dementia. He was not able to provide history which was obtained from review of records and discussion with ER staff. Patient upon arrival to ER his initial laboratory workup showed a WBC of 12.6, hemoglobin of 13.7, hematocrit of 43.3 and platelet count of 175. INR of 0.83. Sodium 140, potassium 3.9, chloride 103, bicarb 25, BUN 25 and creatinine 1.5. Prior creatinine in 2018 was 1.3. AST of 45, ALT of 21, ALP of 122, CRP of 131. ProNBP of 1441 and a procalcitonin of 0.69. COVID-19 ag was found to be positive. Imaging studies included a CT head without contrast which did not show any evidence of acute intra-cranial abnormality. Chest x-ray was then performed which showed bilateral rates most marked on the right. Was noted to be hypoxic with O2 sats in low to mid 80s. He was also tachypneic with a blood pressure of 88/61. Was placed on 15L o2 via NRB. ABG after this intervention showed a pH 7.33, pCO2 49.0, PO2 of 61.5 and bicarb 25.9. Oxygen saturation ABG was 90.8. In ER he was given cefepime 2 g IV x 1 and azithromycin 500 mg IV x 1 in addition to decadron 6 mg IV x 1 06/02/20 Shortly after admission patient was intubated and placed on mechanical vent. He was started on precedex and fentanyl for sedation. Additionally started on levophed due to hypotension. 06/03/2020 Overnight patient remained on mechanical ventilation. Patient was agitated wants briefly weaned from sedation. Required addition of her side. No fever 06/04/2020 No significant change in clinical condition. Patient remained stable on vent. Sedated with Precedex and fentanyl. Afebrile overnight. Medications: Reviewed: Yes Vitals/I&O/Wt Last Vital Signs Temp 97.9 F 06/04/20 12:35 Pulse 107 H 06/04/20 15:20 Resp 8 L 06/04/20 14:13 BP 145/83 06/04/20 15:20 Pulse Ox 91 06/04/20 15:20 06/04/20 06/04/20 06/04/20 06:59 14:59 22:59 Intake Total 1254 / 5072.058 489.895 / 489.895 Output Total 500 / 3250 300 / 300 Balance 754 / 1822.058 189.895 / 189.895 Weight last 48 hrs Weight 82.781 kg Weight 83.234 kg Physical Exam Narrative: EXAM NARRATIVE: General : on vent sedated HEENT: ET tube CVS: NSR Chest: vent ABD : Non-distende Ext : No edema Psych : Sedated Urinary Catheter Management^: Mondragon: Cath Placed During This Visit: yes Reason for Continuing Indwelling Catheter: Acute Urinary Retention or Obstruction Urinary Catheter Date of Insertion: 06/01/20 Urinary Catheter Time of Insertion: 22:10 Data : 06/04/20 04:00 06/04/20 04:00 Micro: Microbiology 06/02/20 10:13 Gram Stain - Final Sputum - Endotracheal Tube Aspirate Sputum Culture - Final A&P Assessment and plan (1) Acute hypoxemic respiratory failure: Status: Acute (2) Pneumonia: Status: Acute Qualifiers: Laterality: bilateral Lung location: unspecified part of lung Pneumonia type: due to unspecified organism Qualified Code(s): J18.9 - Pneumonia, unspecified organism (3) COVID-19 virus infection: Status: Acute (4) Acute worsening of stage 3 chronic kidney disease: Status: Acute (5) Adult failure to thrive: Status: Acute Acute respiratory failure with hypoxemia & hypercapnia due to COVID19 pneumonia on mechanical ventilation - Decadron 6 mg IV daily x 10 days - Remdesivir 200 mg IV x 1 now then 100 mg IV daily x 4 days - Procalcitonin 0.6 - > can not entirely rule out superimposed bacterial infection - Continue Zosyn 3.375g IV q8hr and vancomycin pharmacy to dose - Follow up on blood culture x 2 - NGTD - Obtain sputum culture - NO growth - Chest x-ray and ABG in am - Continue current vent settings -Will wean sedation and trial today - May have to continue precedex due to agitation - Continue current sedation protocol - Precedex / Fentanly - Chest- x-ray in am Acute on chronic stage 2-3 kidney failure - Hx of Right sided nephrectomy ( unclear ) - Baseline creatinine ranging from 1.3-1.4 - Currently increased to 1.8 - > 1.5 - May require dieresis once stable - Monitor urine output - Bladder scan q6hr and straight cath for > 200 vs possible Mondragon placement - Repeat BMP in am - Change IVF to 0.45 - Consider nephrology consult Hx of Iron deficiency anemia due to GI Bleed - Noted in 2013 - Was not transfused as patient is jehovahs witness and refused - WIll monitor h/h while on prophylactic dose of anticoagulation - H/H stable - 13.4 on arrival Additional Medical History - Hypertnesion - Dyslpididemia - Advanced dementia - Obstructive sleep apnea - Large Hiatal Her melvi - Hx of Closed Head injury GI ppx - Pepcid 20 mg IV BID DVT ppx - Heparin 5000 units q8hr - stop if h/h decreases or GI bleed noted. Prognosis : Guarded CODE STATUS - FULL CODE Attestations Medical Necessity Statement*: Continue hospitalization due to COVID-19 associated respiratory failure requiring mechanical ventilation. Time Spent in Patient Care: Greater than 35 minutes (>than 50% of time spent in counselling and/or direct pt care on unit) . 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
[2020-06-04] MEDS: sodium chloride 0.45% 1,000 ML 50 ML IV (17:17)
[2020-06-04 17:41] LABS: Glucose Point of Care 115 mg/dL (70-110)
[2020-06-04] MEDS: remdesivir 100 MG in sodium chloride 0.9% (100 ml) 100 ML IV (18:00)
[2020-06-04] MEDS: dexamethasone 4 mg/mL INJ 6 MG IVP (18:01)
--- NOTE | 2020-06-04 18:54 | PC.NURSE ---
Bed bath and complete linen changed performed.
[2020-06-05] VITALS (98 sets, daily range): BP systolic 110–160; BP diastolic 68–127; PULSE 74–114; RESP 10–28; TEMP 36.6–37.1; O2SAT 81–98; BMI 25.8
[2020-06-05] MEDS: dexmedetomidine 400 MCG in sodium chloride 0.9% (100 ml) 100 ML 11.5 MCG IV (01:39)
[2020-06-05] MEDS: midazolam 1 mg/mL INJ 2 mL 2 MG IVP ×4 (02:08→22:15)
[2020-06-05] MEDS: piperacillin-tazobactam 3.375 GM in sodium chloride 0.9% (plus) 50 ML IV ×3 (02:38→19:40)
[2020-06-05] MEDS: heparin 5,000 unit/mL INJ 1 mL 5000 UNIT SUBCUT ×3 (02:39→18:09)
[2020-06-05] MEDS: famotidine 20 mg/2 mL INJ IVP ×2 (06:54→18:26)
[2020-06-05] MEDS: ipratropium-albuterol 3 mL Neb INHALATION ×2 (08:41→19:15)
[2020-06-05 08:46] LABS: Vancomycin Trough 7.8 ug/mL (10-15)
[2020-06-05] MEDS: vancomycin 1,000 MG in sodium chloride 0.9% 250 ML 250 MG IV (10:11)
[2020-06-05] MEDS: dexmedetomidine 400 MCG in sodium chloride 0.9% (100 ml) 100 ML 16.1 MCG IV ×2 (10:37→19:52)
--- NOTE | 2020-06-05 10:59 | P.PN_ITS ---
Subjective Subjective: Interval history: 84-year-old male with a past medical history significant significant for closed head injury, osteoporosis, anxiety, depression, iron deficiency knee anemia, obstructive sleep apnea, hiatal hernia,hyperlipidemia,, hypertension, chronic stage 3 kidney disease s/p prior right nephrectomy, jehovah witness with prior GI bleed (refused transfusions in the past) and advanced dementia who presented to the hospital with generalized weakness. Patient does not communicate and at baseline is confused due to dementia. He was not able to provide history which was obtained from review of records and discussion with ER staff. Patient upon arrival to ER his initial laboratory workup showed a WBC of 12.6, hemoglobin of 13.7, hematocrit of 43.3 and platelet count of 175. INR of 0.83. Sodium 140, potassium 3.9, chloride 103, bicarb 25, BUN 25 and creatinine 1.5. Prior creatinine in 2018 was 1.3. AST of 45, ALT of 21, ALP of 122, CRP of 131. ProNBP of 1441 and a procalcitonin of 0.69. COVID-19 ag was found to be positive. Imaging studies included a CT head without contrast which did not show any evidence of acute intra-cranial abnormality. Chest x-ray was then performed which showed bilateral rates most marked on the right. Was noted to be hypoxic with O2 sats in low to mid 80s. He was also tachypneic with a blood pressure of 88/61. Was placed on 15L o2 via NRB. ABG after this intervention showed a pH 7.33, pCO2 49.0, PO2 of 61.5 and bicarb 25.9. Oxygen saturation ABG was 90.8. In ER he was given cefepime 2 g IV x 1 and azithromycin 500 mg IV x 1 in addition to decadron 6 mg IV x 1 06/02/20 Shortly after admission patient was intubated and placed on mechanical vent. He was started on precedex and fentanyl for sedation. Additionally started on levophed due to hypotension. 06/03/2020 Overnight patient remained on mechanical ventilation. Patient was agitated wants briefly weaned from sedation. Required addition of her side. No fever 06/04/2020 No significant change in clinical condition. Patient remained stable on vent. Sedated with Precedex and fentanyl. Afebrile overnight. 06/05/2019 Patient's FiO2 was slightly increased to 50%. He was quite agitated once sedation was weaned. No fever or chills. Medications: Reviewed: Yes Vitals/I&O/Wt Last Vital Signs Temp 98.5 F 06/06/20 05:00 Pulse 82 06/06/20 10:00 Resp 16 06/06/20 10:00 BP 144/77 06/06/20 08:00 Pulse Ox 91 06/06/20 10:00 06/05/20 06/06/20 06/06/20 22:59 06:59 14:59 Intake Total 204 / 1306.058 154 / 1460.058 Output Total 775 / 775 225 / 1000 Balance -571 / 531.058 -71 / 460.058 Weight last 48 hrs Weight 79.288 kg Weight 81.647 kg Physical Exam Narrative: EXAM NARRATIVE: General : on vent sedated HEENT: ET tube CVS: NSR Chest: vent ABD : Non-distende Ext : No edema Psych : Sedated Urinary Catheter Management^: Mondragon: Cath Placed During This Visit: yes Reason for Continuing Indwelling Catheter: Accurate Measurement of Urinary Output in Critically Ill Patients Urinary Catheter Date of Insertion: 06/01/20 Urinary Catheter Time of Insertion: 22:10 Data : 06/06/20 04:30 06/06/20 04:30 A&P Assessment and plan (1) Acute hypoxemic respiratory failure: Status: Acute (2) Pneumonia: Status: Acute Qualifiers: Laterality: bilateral Lung location: unspecified part of lung Pneumonia type: due to unspecified organism Qualified Code(s): J18.9 - Pneumonia, unspecified organism (3) COVID-19 virus infection: Status: Acute (4) Acute worsening of stage 3 chronic kidney disease: Status: Acute (5) Adult failure to thrive: Status: Acute Acute respiratory failure with hypoxemia & hypercapnia due to COVID19 pneumonia on mechanical ventilation - Decadron 6 mg IV daily x 10 days - Remdesivir 200 mg IV x 1 now then 100 mg IV daily x 4 days - Procalcitonin 0.6 - > can not entirely rule out superimposed bacterial infection - Continue Zosyn 3.375g IV q8hr and vancomycin pharmacy to dose - Follow up on blood culture x 2 - NGTD - Obtain sputum culture - NO growth - Chest x-ray and ABG in am - Continue current vent settings -Will wean sedation and trial today - May have to continue precedex due to agitation - Continue current sedation protocol - Precedex / Fentanly - Chest- x-ray in am Acute on chronic stage 2-3 kidney failure - Hx of Right sided nephrectomy ( unclear ) - Baseline creatinine ranging from 1.3-1.4 - Currently increased to 1.8 - > 1.5 - May require dieresis once stable - Monitor urine output - Bladder scan q6hr and straight cath for > 200 vs possible Mondragon placement - Repeat BMP in am - Change IVF to 0.45 - Consider nephrology consult Hx of Iron deficiency anemia due to GI Bleed - Noted in 2013 - Was not transfused as patient is jehovahs witness and refused - WIll monitor h/h while on prophylactic dose of anticoagulation - H/H stable - 13.4 on arrival Additional Medical History - Hypertnesion - Dyslpididemia - Advanced dementia - Obstructive sleep apnea - Large Hiatal Her melvi - Hx of Closed Head injury GI ppx - Pepcid 20 mg IV BID DVT ppx - Heparin 5000 units q8hr - stop if h/h decreases or GI bleed noted. Prognosis : Guarded CODE STATUS - FULL CODE Attestations Medical Necessity Statement*: Continue hospitalization for management of acute hypoxic respiratory failure requiring mechanical ventilation. Time Spent in Patient Care: Greater than 35 minutes (>than 50% of time spent in counselling and/or direct pt care on unit) . 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
[2020-06-05] MEDS: sodium chloride 0.45% 1,000 ML 50 ML IV (17:15)
[2020-06-05] MEDS: dexamethasone 4 mg/mL INJ 6 MG IVP (18:04)
[2020-06-05] MEDS: remdesivir 100 MG in sodium chloride 0.9% (100 ml) 100 ML IV (18:17)
[2020-06-06] VITALS (34 sets, daily range): BP systolic 91–146; BP diastolic 47–93; PULSE 70–96; RESP 11–16; TEMP 35.9–37.6; O2SAT 86–98
[2020-06-06] MEDS: heparin 5,000 unit/mL INJ 1 mL 5000 UNIT SUBCUT ×3 (02:02→18:19)
[2020-06-06] MEDS: vancomycin 1,500 MG/300 ML PIGGYBACK 200 MG IV (02:27)
[2020-06-06] MEDS: midazolam 1 mg/mL INJ 2 mL 2 MG IVP ×2 (03:09→08:45)
[2020-06-06] MEDS: piperacillin-tazobactam 3.375 GM in sodium chloride 0.9% (plus) 50 ML IV ×3 (03:41→18:19)
[2020-06-06 03:45] LABS: ABG PCO2 36.6 mmHg (35-45); Arterial Blood Gas Hematocrit 38.4 % (42-52); Base Excess ABG -1.5 mmol/L (-2.0-2.0); Blood Gas Allen Test Pos; Blood Gas Sample Site Radial, right; Blood Gas Sample Type Arterial; HCO3 ABG 22.8 mmol/L (22-26); Oxygen Device VENT; PO2 ABG 54.5 mmHg (80.0-100.0)
[2020-06-06] MEDS: dexmedetomidine 400 MCG in sodium chloride 0.9% (100 ml) 100 ML 16.1 MCG IV ×2 (03:51→11:32)
[2020-06-06] MEDS: famotidine 20 mg/2 mL INJ IVP ×2 (05:57→21:45)
[2020-06-06 06:03] LABS: Basophils # 0.1 10^3/uL (0.0-0.1); Basophils % 0.6 %; Hematocrit 39.2 % (42.0-52.0); Hemoglobin 12.1 g/dL (11.7-16.6); Lymphocytes # 0.3 10^3/uL (0.8-4.8); Lymphocytes % 2.8 %; Mean Corpuscular HGB Conc 30.9 g/dL (30.0-36.0); Mean Corpuscular Hemoglobin 27.9 pg (28.0-34.0); Mean Corpuscular Volume 90.3 fL (80-94); Monocytes # 0.9 10^3/uL (0.2-0.9); Monocytes % 8.5 %; Neutrophils # 8.88 10^3/uL (1.8-7.7); Nucleated Red Blood Cells % 0 %; Platelet Count 174 10^3/cmm (130-400); Red Blood Count 4.34 10^6/uL (4.1-5.3); Red Cell Distribution Width 14.5 % (12.1-15.1); White Blood Count 10.9 10^3/uL (4.0-10.0)
[2020-06-06 07:10] LABS: Neutrophils % 88.1 %
[2020-06-06 07:19] LABS: Slide Review Slide Review Perform
[2020-06-06 08:22] LABS: Alanine Aminotransferase 19 U/L (0-41); Albumin Level 2.1 g/dL (3.5-5.2); Alkaline Phosphatase 109 IU/L (40-130); Aspartate Amino Transferase 31 U/L (0-40); Blood Urea Nitrogen 27 mg/dL (8-23); Calcium 7.6 mg/dL (8.5-10.5); Carbon Dioxide 14 mmol/L (22-29); Chloride 110 mmol/L (98-107); Globulin 2.5 g/dL (1.3-4.6); Glucose 112 mg/dL (65-115); Osmolality Calculated 294 mOsm/kg (285-295); Sodium 139 mmol/L (136-145); Total Bilirubin 0.6 mg/dL (0.15-1.2); Total Protein 4.6 g/dL (6.6-8.7)
[2020-06-06] MEDS: ipratropium-albuterol 3 mL Neb INHALATION ×2 (08:26→20:02)
[2020-06-06 08:30] LABS: Anion Gap 19.9 (5-19); Potassium 4.9 mmol/L (3.5-5.1)
--- NOTE | 2020-06-06 10:02 | PC.SOCIAL ---
IM follow up discussed with and she verbalized understanding.
--- NOTE | 2020-06-06 10:38 | PC.NURSE ---
Shift Update This nurse has attempted to place OG tube without success. Patient continues to become very agitated. PRN medication being given per orders. Oral care performed.
--- NOTE | 2020-06-06 15:33 | PM.PN ---
Subjective Subjective: Interval history: 84-year-old male with a past medical history significant significant for closed head injury, osteoporosis, anxiety, depression, iron deficiency knee anemia, obstructive sleep apnea, hiatal hernia,hyperlipidemia,, hypertension, chronic stage 3 kidney disease s/p prior right nephrectomy, jehovah witness with prior GI bleed (refused transfusions in the past) and advanced dementia who presented to the hospital with generalized weakness. Patient does not communicate and at baseline is confused due to dementia. He was not able to provide history which was obtained from review of records and discussion with ER staff. Patient upon arrival to ER his initial laboratory workup showed a WBC of 12.6, hemoglobin of 13.7, hematocrit of 43.3 and platelet count of 175. INR of 0.83. Sodium 140, potassium 3.9, chloride 103, bicarb 25, BUN 25 and creatinine 1.5. Prior creatinine in 2018 was 1.3. AST of 45, ALT of 21, ALP of 122, CRP of 131. ProNBP of 1441 and a procalcitonin of 0.69. COVID-19 ag was found to be positive. Imaging studies included a CT head without contrast which did not show any evidence of acute intra-cranial abnormality. Chest x-ray was then performed which showed bilateral rates most marked on the right. Was noted to be hypoxic with O2 sats in low to mid 80s. He was also tachypneic with a blood pressure of 88/61. Was placed on 15L o2 via NRB. ABG after this intervention showed a pH 7.33, pCO2 49.0, PO2 of 61.5 and bicarb 25.9. Oxygen saturation ABG was 90.8. In ER he was given cefepime 2 g IV x 1 and azithromycin 500 mg IV x 1 in addition to decadron 6 mg IV x 1 06/02/20 Shortly after admission patient was intubated and placed on mechanical vent. He was started on precedex and fentanyl for sedation. Additionally started on levophed due to hypotension. 06/03/2020 Overnight patient remained on mechanical ventilation. Patient was agitated wants briefly weaned from sedation. Required addition of her side. No fever 06/04/2020 No significant change in clinical condition. Patient remained stable on vent. Sedated with Precedex and fentanyl. Afebrile overnight. 06/05/2019 Patient's FiO2 was slightly increased to 50%. He was quite agitated once sedation was weaned. No fever or chills. 06/06/2019 Patient continued to require sedation throat today. No significant change in clinical condition otherwise. Remained afebrile overnight. Continued on IV pressors Medications: Reviewed: Yes Vitals/I&O/Wt Last Vital Signs Temp 98.5 F 06/06/20 05:00 Pulse 76 06/06/20 14:00 Resp 16 06/06/20 14:11 BP 107/77 06/06/20 14:00 Pulse Ox 87 L 06/06/20 14:00 06/06/20 06/06/20 06/06/20 06:59 14:59 22:59 Intake Total 154 / 1460.058 301.495 / 494.314 0226 / 1301.495 Output Total 225 / 1000 Balance -71 / 460.058 301.495 / 707.245 2668 / 1301.495 Weight last 48 hrs Weight 79.288 kg Weight 81.647 kg Physical Exam Narrative: EXAM NARRATIVE: General : on vent sedated HEENT: ET tube - Right IJ line in place. CVS: NSR Chest: vent ABD : Non-distended Ext : No edema Psych : Sedated Urinary Catheter Management^: Mondragon: Cath Placed During This Visit: yes Reason for Continuing Indwelling Catheter: Accurate Measurement of Urinary Output in Critically Ill Patients Urinary Catheter Date of Insertion: 06/01/20 Urinary Catheter Time of Insertion: 22:10 Data : 06/06/20 04:30 06/06/20 04:30 Micro: Microbiology 06/01/20 14:09 Blood Culture - Final Blood NO GROWTH AFTER 5 DAYS 06/01/20 14:03 Blood Culture - Final Blood NO GROWTH AFTER 5 DAYS A&P Assessment and plan (1) Acute hypoxemic respiratory failure: Status: Acute (2) Pneumonia: Status: Acute Qualifiers: Laterality: bilateral Lung location: unspecified part of lung Pneumonia type: due to unspecified organism Qualified Code(s): J18.9 - Pneumonia, unspecified organism (3) COVID-19 virus infection: Status: Acute (4) Acute worsening of stage 3 chronic kidney disease: Status: Acute (5) Adult failure to thrive: Status: Acute Acute respiratory failure with hypoxemia & hypercapnia - Intubated on mechanical ventilation on arrival - Vent settings- CMV, RR-10 tidal volume 400, PIP 22, I-time 1.3, peep of 10 and FiO2 of 55%. - Arterial blood gas showed a pH of 7.40, pCO2 of 36.6, PO2 of 54.5 and a bicarb of 22.8. - Patient- respiratory rate 16, minute ventilation 9.2 - 06/02 - Chest x-ray-> prominent bilateral interstitial pulmonary infiltrates. - Goal RASS - 5 (Initiate Deep sedation) - Fentanyl , Propofol, Versed - Per protocol - Once Deep sedation achieved start Rocuronium - Once stable on sedation and paralytic will consider initiating proning protocol 16hr on 8 off x 3 sessions - Repeat Ferritin, CRP, D-dimer in am - Chest x-ray / ABG in AM Sepsis with hypotension due to COVID19/ Possible bacterial Pneumonia - Completed Remdesivir x 5 days protocol - Can not entirely rule out superimposed bacterial infection - Continue Zosyn 3.375g IV q8hr and vancomycin pharmacy to dose - Follow up on blood culture x 2 - NGTD - Obtain sputum culture - No growth - Continue to wean IV pressors as tolerated - Central line placed. Acute on chronic stage 2-3 kidney failure - Resolved - Hx of Right sided nephrectomy ( unclear ) - Baseline creatinine ranging from 1.3-1.4 - Creatinine 1.8 - > 0.9 - Saline lock IVF - May require dieresis once stable - Monitor urine output - Mondragon in place 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 Prognosis : Guarded CODE STATUS - FULL CODE Attestations Medical Necessity Statement*: Continue Current hospital stay for vent management. Time Spent in Patient Care: Greater than 35 minutes (>than 50% of time spent in counselling and/or direct pt care on unit). 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
[2020-06-06] MEDS: sodium chloride 0.45% 1,000 ML 50 ML IV (16:08)
--- NOTE | 2020-06-06 17:30 | PC.NURSE ---
Consent gave consent for central line and art line. Verified by Rea KIRKPATRICK
[2020-06-06] MEDS: dexamethasone 4 mg/mL INJ 6 MG IVP (18:19)
--- NOTE | 2020-06-06 18:24 | XRR_ITS ---
PROCEDURE INFORMATION: Exam: XR Chest, 1 View Exam date and time: 06/06/2020 6:26 PM Age: 84 years old Clinical indication: Device placement; Picc; Additional info: Central line placement TECHNIQUE: Imaging protocol: XR of the chest Views: 1 view. COMPARISON: CR XR chest 1V portable [id number] 06/02/2020 11:12 AM FINDINGS: Tubes, catheters and devices: Endotracheal tube noted, with distal tip 2.5 cm above the dea. Right jugular central line with distal tip overlying SVC. Lungs: Bilateral nonspecific pulmonary infiltrates. Pleural space: No pleural effusion. No pneumothorax. Heart/Mediastinum: No cardiomegaly. Bones/joints: Deformity of the right proximal humerus, consistent with healed fracture. Old compression fracture of a midthoracic vertebral body demonstrated. No acute osseous abnormality. XR/XR chest 1V portable [id number] IMPRESSION: 1. Right jugular central line with distal tip overlying SVC. No associated pneumothorax. 2. Bilateral nonspecific pulmonary infiltrates. This has improved when compared 06/02/2020.
--- NOTE | 2020-06-06 18:30 | P.PCN_ITS ---
Procedure/Consent Time out: Time Out Performed: Yes Consent: Consent for Procedure: Consent obtained from other (indicate) ( ) and Risks & Benefits reviewed Procedure Narrative: PROCEDURE PERFORMED Ultrasound-guided Right internal jugular central line placement INDICATIONS FOR PROCEDURE The patient is a 84 year-old male admitted with sepsis, acute respiratory failure requiring multiple IV medication including sedative and vasopressors. The patient is in need of large bore IV access for administration of fluids, including blood products and vasoactive drugs, CVP monitoring for hemodynamic instability. DESCRIPTION OF PROCEDURE IN DETAIL The patient was lying in the trendelenburg position with head turned 30 degrees away from the insertion site. The skin was thoroughly sponged with chloroprep and allowed to dry. All persons involved were shielded with hairnets, facemasks and sterile gowns. With sterile- gloved hands the right neck area was draped with the large disposable sterile field provided in the pre-manufactured kit. The internal jugular vein was identified on ultrasound from the angle of the mandible down into the supraclavicular fossa using the linear ultrasound probe in the transverse orientation. The carotid artery was identified and avoided. The internal jugular vein was then placed in the center of the ultrasound field and compressed for patency. A movement artifact was identified as the needle was advanced through the skin and advanced toward the vessel. A real time hyperechoic signal revealed visualization of vascular needle entry into the lumen as blood was noted to f lashback in the syringe. The needle was then held in place while the guide wire was advanced. The needle was then removed. Direct visualization of guide wire location within the vein was noted on ultrasound indicating proper placement. A skin dilator was advanced over the guidewire and removed, and the triple-lumen catheter was then advanced over the guide wire into proper position. The guide wire was removed and discarded. The ports were aspirated which showed good blood return and then carefully flushed with normal saline. The catheter was stabilized and sutured to the skin with 2-0 silk at 2 anchor points. A sterile bioocclusive dressing was placed over the catheter, including the insertion site. The patient tolerated the procedure well. A chest x-ray was ordered for position confirmation. Supervision: Dr. Michael Fallon ESTIMATED BLOOD LOSS 10 mL. COMPLICATIONS None. Acute Procedures Epistaxis Control: Time out performed: Yes
[2020-06-07] VITALS (33 sets, daily range): BP systolic 92–136; BP diastolic 52–79; PULSE 67–97; RESP 12–16; TEMP 36.1–37.6; O2SAT 86–97
[2020-06-07] MEDS: dexmedetomidine 400 MCG in sodium chloride 0.9% (100 ml) 100 ML 11.5 MCG IV (00:33)
[2020-06-07] MEDS: heparin 5,000 unit/mL INJ 1 mL 5000 UNIT SUBCUT ×3 (03:41→17:22)
[2020-06-07] MEDS: vancomycin 1,500 MG/300 ML PIGGYBACK 200 MG IV (03:41)
[2020-06-07] MEDS: piperacillin-tazobactam 3.375 GM in sodium chloride 0.9% (plus) 50 ML IV ×3 (03:42→19:46)
[2020-06-07 03:53] LABS: Basophils # 0.1 10^3/uL (0.0-0.1); Basophils % 0.6 %; Hematocrit 39.4 % (42.0-52.0); Hemoglobin 12.2 g/dL (11.7-16.6); Lymphocytes # 0.2 10^3/uL (0.8-4.8); Lymphocytes % 1.1 %; Mean Corpuscular Hemoglobin 28.1 pg (28.0-34.0); Mean Corpuscular Volume 90.8 fL (80-94); Mean Platelet Volume 10.8 fL (7.4-10.4); Monocytes # 0.7 10^3/uL (0.2-0.9); Monocytes % 5.4 %; Neutrophils # 11.15 10^3/uL (1.8-7.7); Neutrophils % 83.3 %; Nucleated Red Blood Cells % 0 %; Platelet Count 196 10^3/cmm (130-400); Red Blood Count 4.34 10^6/uL (4.1-5.3); Red Cell Distribution Width 14.8 % (12.1-15.1); White Blood Count 13.4 10^3/uL (4.0-10.0)
[2020-06-07 04:19] LABS: Lactate (Lactic Acid level) 1.4 mmol/L (0.5-2.2)
[2020-06-07 04:23] LABS: ABG PCO2 44.9 mmHg (35-45); Arterial Blood Gas Hematocrit 39.5 % (42-52); Base Excess ABG -4.4 mmol/L (-2.0-2.0); Blood Gas Sample Site Radial, left; Blood Gas Sample Type Arterial; Oxygen Device VENT; PO2 ABG 65.9 mmHg (80.0-100.0)
[2020-06-07 04:25] LABS: Alanine Aminotransferase 17 U/L (0-41); Albumin Level 2.3 g/dL (3.5-5.2); Alkaline Phosphatase 117 IU/L (40-130); Anion Gap 13.6 (5-19); Aspartate Amino Transferase 18 U/L (0-40); Blood Urea Nitrogen 29 mg/dL (8-23); Calcium 7.5 mg/dL (8.5-10.5); Carbon Dioxide 22 mmol/L (22-29); Chloride 110 mmol/L (98-107); Ferritin 288 ng/mL (30-400); Globulin 2.5 g/dL (1.3-4.6); Glucose 138 mg/dL (65-115); Osmolality Calculated 300 mOsm/kg (285-295); Potassium 4.6 mmol/L (3.5-5.1); Sodium 141 mmol/L (136-145); Total Bilirubin 0.6 mg/dL (0.15-1.2); Total Protein 4.8 g/dL (6.6-8.7)
[2020-06-07 04:44] LABS: Slide Review Slide Review Perform
[2020-06-07 05:02] LABS: D Dimer 13.47 ug/mIFEU (0-0.59)
[2020-06-07] MEDS: famotidine 20 mg/2 mL INJ IVP ×2 (06:39→19:15)
--- NOTE | 2020-06-07 07:00 | XRR_ITS ---
PROCEDURE INFORMATION: Exam: XR Chest, 1 View Exam date and time: 06/07/2020 7:56 AM Age: 84 years old Clinical indication: Shortness of breath; Additional info: Respiratory failure TECHNIQUE: Imaging protocol: XR of the chest Views: 1 view. COMPARISON: CR (CHEST, ) 06/06/2020 6:37 PM FINDINGS: Tubes, catheters and devices: A tracheostomy tube and central venous catheter projects in satisfactory position. Lungs: Extensive bilateral interstitial pulmonary infiltrates are again seen and they have not significantly changed. Pleural space: Unremarkable. No pleural effusion. No pneumothorax. Heart/Mediastinum: Unremarkable. No cardiomegaly. Bones/joints: Unremarkable. XR/XR chest 1V portable [id number] IMPRESSION: Extensive bilateral interstitial pulmonary infiltrates unchanged.
--- NOTE | 2020-06-07 07:50 | NUR.SHIFT ---
Began shift with patient's sats dropping into the mid to upper 80s. Dr Cuevas notified of desats and non-synchronized breathing on ventilator. Orders received to increase pt's sedation in order to increase vent compliance. Levo initiated with increased sedation. Pt's sats improved. Pupils equal and reactive. Pt not withdrawing from pain. Weaning sedation for motor response.
--- NOTE | 2020-06-07 09:21 | PC.NURSE ---
Ruthann Kessler has permission to receive information about patient
[2020-06-07] MEDS: dexmedetomidine 400 MCG in sodium chloride 0.9% (100 ml) 100 ML 9.2 MCG IV (15:10)
[2020-06-07] MEDS: dexamethasone 4 mg/mL INJ 6 MG IVP (17:22)
--- NOTE | 2020-06-07 18:45 | PC.NURSE ---
Received bedside report on patients from Melina KIRKPATRICK. Assumed care at this time. Current drips verified with off going RN: Levophed 0.5 ml/hr, Fentanyl 100 mcg/hr, Precedex 0.1 mcg/g/hr, Versed 1mg/hr.
--- NOTE | 2020-06-07 20:16 | PM.PN ---
Subjective Subjective: Interval history: 84-year-old male with a past medical history significant significant for closed head injury, osteoporosis, anxiety, depression, iron deficiency knee anemia, obstructive sleep apnea, hiatal hernia,hyperlipidemia,, hypertension, chronic stage 3 kidney disease s/p prior right nephrectomy, jehovah witness with prior GI bleed (refused transfusions in the past) and advanced dementia who presented to the hospital with generalized weakness. Patient does not communicate and at baseline is confused due to dementia. He was not able to provide history which was obtained from review of records and discussion with ER staff. Patient upon arrival to ER his initial laboratory workup showed a WBC of 12.6, hemoglobin of 13.7, hematocrit of 43.3 and platelet count of 175. INR of 0.83. Sodium 140, potassium 3.9, chloride 103, bicarb 25, BUN 25 and creatinine 1.5. Prior creatinine in 2018 was 1.3. AST of 45, ALT of 21, ALP of 122, CRP of 131. ProNBP of 1441 and a procalcitonin of 0.69. COVID-19 ag was found to be positive. Imaging studies included a CT head without contrast which did not show any evidence of acute intra-cranial abnormality. Chest x-ray was then performed which showed bilateral rates most marked on the right. Was noted to be hypoxic with O2 sats in low to mid 80s. He was also tachypneic with a blood pressure of 88/61. Was placed on 15L o2 via NRB. ABG after this intervention showed a pH 7.33, pCO2 49.0, PO2 of 61.5 and bicarb 25.9. Oxygen saturation ABG was 90.8. In ER he was given cefepime 2 g IV x 1 and azithromycin 500 mg IV x 1 in addition to decadron 6 mg IV x 1 06/02/20 Shortly after admission patient was intubated and placed on mechanical vent. He was started on precedex and fentanyl for sedation. Additionally started on levophed due to hypotension. 06/03/2020 Overnight patient remained on mechanical ventilation. Patient was agitated wants briefly weaned from sedation. Required addition of her side. No fever 06/04/2020 No significant change in clinical condition. Patient remained stable on vent. Sedated with Precedex and fentanyl. Afebrile overnight. 06/05/2019 Patient's FiO2 was slightly increased to 50%. He was quite agitated once sedation was weaned. No fever or chills. 06/06/2019 Patient continued to require sedation throat today. No significant change in clinical condition otherwise. Remained afebrile overnight. Continued on IV pressors 06/07/2019 Remains on vent Medications: Reviewed: Yes Vitals/I&O/Wt Last Vital Signs Temp 96.9 F L 06/07/20 16:00 Pulse 97 06/07/20 19:55 Resp 15 06/07/20 19:55 BP 103/54 06/07/20 18:00 Pulse Ox 90 06/07/20 19:55 06/07/20 06/07/20 06/07/20 06:59 14:59 22:59 Intake Total 485.825 / 2971.424 187.425 / 187.425 132.504 / 319.929 Output Total 50 / 1200 Balance 435.825 / 1771.424 187.425 / 187.425 132.504 / 319.929 Weight last 48 hrs Weight 76.929 kg Weight 79.288 kg Physical Exam Narrative: EXAM NARRATIVE: General : on vent sedated HEENT: ET tube - Right IJ line in place. CVS: NSR Chest: vent ABD : Non-distended Ext : No edema Psych : Sedated Urinary Catheter Management^: Mondragon: Cath Placed During This Visit: yes Reason for Continuing Indwelling Catheter: Accurate Measurement of Urinary Output in Critically Ill Patients Urinary Catheter Date of Insertion: 06/01/20 Urinary Catheter Time of Insertion: 22:10 Data : 06/07/20 03:30 06/07/20 03:30 Micro: Microbiology 06/01/20 14:09 Blood Culture - Final Blood NO GROWTH AFTER 5 DAYS 06/01/20 14:03 Blood Culture - Final Blood NO GROWTH AFTER 5 DAYS A&P Assessment and plan (1) Acute hypoxemic respiratory failure: Status: Acute (2) Pneumonia: Status: Acute Qualifiers: Laterality: bilateral Lung location: unspecified part of lung Pneumonia type: due to unspecified organism Qualified Code(s): J18.9 - Pneumonia, unspecified organism (3) COVID-19 virus infection: Status: Acute (4) Acute worsening of stage 3 chronic kidney disease: Status: Acute (5) Adult failure to thrive: Status: Acute Acute respiratory failure with hypoxemia & hypercapnia - Intubated on mechanical ventilation on arrival - Vent settings- CMV, RR-10 tidal volume 400, PIP 22, I-time 1.3, peep of 10 and FiO2 of 55%. - Arterial blood gas showed a pH of 7.40, pCO2 of 36.6, PO2 of 54.5 and a bicarb of 22.8. - Patient- respiratory rate 16, minute ventilation 9.2 - 06/02 - Chest x-ray-> prominent bilateral interstitial pulmonary infiltrates. - Goal RASS - 5 (Initiate Deep sedation) - Fentanyl , Propofol, Versed - Per protocol - Once Deep sedation achieved start Rocuronium - Once stable on sedation and paralytic will consider initiating proning protocol 16hr on 8 off x 3 sessions - Repeat Ferritin, CRP, D-dimer in am - Chest x-ray / ABG in AM Sepsis with hypotension due to COVID19/ Possible bacterial Pneumonia - Completed Remdesivir x 5 days protocol - Can not entirely rule out superimposed bacterial infection - Continue Zosyn 3.375g IV q8hr and vancomycin pharmacy to dose - Follow up on blood culture x 2 - NGTD - Obtain sputum culture - No growth - Continue to wean IV pressors as tolerated - Central line placed. Acute on chronic stage 2-3 kidney failure - Resolved - Hx of Right sided nephrectomy ( unclear ) - Baseline creatinine ranging from 1.3-1.4 - Creatinine 1.8 - > 0.9 - Saline lock IVF - May require dieresis once stable - Monitor urine output - Mondragon in place 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 Prognosis : Guarded CODE STATUS - FULL CODE Attestations Medical Necessity Statement*: Critical condition continue hospitalization Time Spent in Patient Care: Greater than 35 minutes (>than 50% of time spent in counselling and/or direct pt care on unit). 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
[2020-06-08] VITALS (32 sets, daily range): BP systolic 95–153; BP diastolic 46–98; PULSE 73–116; RESP 13–22; TEMP 36.6–37.2; O2SAT 88–94; BMI 24.3
[2020-06-08] MEDS: heparin 5,000 unit/mL INJ 1 mL 5000 UNIT SUBCUT ×3 (02:45→17:55)
[2020-06-08] MEDS: piperacillin-tazobactam 3.375 GM in sodium chloride 0.9% (plus) 50 ML IV ×3 (03:56→19:34)
[2020-06-08 06:03] LABS: Basophils # 0.1 10^3/uL (0.0-0.1); Basophils % 0.5 %; Hematocrit 37.6 % (42.0-52.0); Hemoglobin 11.7 g/dL (11.7-16.6); Lymphocytes # 0.3 10^3/uL (0.8-4.8); Lymphocytes % 2.5 %; Mean Corpuscular HGB Conc 31.1 g/dL (30.0-36.0); Mean Corpuscular Hemoglobin 28.1 pg (28.0-34.0); Mean Corpuscular Volume 90.4 fL (80-94); Mean Platelet Volume 11.8 fL (7.4-10.4); Monocytes # 0.4 10^3/uL (0.2-0.9); Monocytes % 4.3 %; Neutrophils # 8.12 10^3/uL (1.8-7.7); Nucleated Red Blood Cells % 0 %; Platelet Count 162 10^3/cmm (130-400); Red Blood Count 4.16 10^6/uL (4.1-5.3); Red Cell Distribution Width 15.1 % (12.1-15.1); White Blood Count 9.8 10^3/uL (4.0-10.0)
[2020-06-08 06:04] LABS: Alanine Aminotransferase 12 U/L (0-41); Albumin Level 2.1 g/dL (3.5-5.2); Alkaline Phosphatase 102 IU/L (40-130); Anion Gap 11.9 (5-19); Aspartate Amino Transferase 15 U/L (0-40); Blood Urea Nitrogen 33 mg/dL (8-23); Calcium 7.5 mg/dL (8.5-10.5); Carbon Dioxide 23 mmol/L (22-29); Chloride 111 mmol/L (98-107); Globulin 2.4 g/dL (1.3-4.6); Glucose 112 mg/dL (65-115); Osmolality Calculated 300 mOsm/kg (285-295); Potassium 4.9 mmol/L (3.5-5.1); Sodium 141 mmol/L (136-145); Total Bilirubin 0.5 mg/dL (0.15-1.2); Total Protein 4.5 g/dL (6.6-8.7)
[2020-06-08] MEDS: vancomycin 1,500 MG/300 ML PIGGYBACK 200 MG IV (06:52)
[2020-06-08 07:20] LABS: Neutrophils % 92.7 %
[2020-06-08] MEDS: ipratropium-albuterol 3 mL Neb INHALATION (07:58)
--- NOTE | 2020-06-08 13:04 | P.PN_ITS ---
Subjective Subjective: Interval history: 84-year-old male with a past medical history significant significant for closed head injury, osteoporosis, anxiety, depression, iron deficiency knee anemia, obstructive sleep apnea, hiatal hernia,hyperlipidemia,, hypertension, chronic stage 3 kidney disease s/p prior right nephrectomy, jehovah witness with prior GI bleed (refused transfusions in the past) and advanced dementia who presented to the hospital with generalized weakness. Patient does not communicate and at baseline is confused due to dementia. He was not able to provide history which was obtained from review of records and discussion with ER staff. Patient upon arrival to ER his initial laboratory workup showed a WBC of 12.6, hemoglobin of 13.7, hematocrit of 43.3 and platelet count of 175. INR of 0.83. Sodium 140, potassium 3.9, chloride 103, bicarb 25, BUN 25 and creatinine 1.5. Prior creatinine in 2018 was 1.3. AST of 45, ALT of 21, ALP of 122, CRP of 131. ProNBP of 1441 and a procalcitonin of 0.69. COVID-19 ag was found to be positive. Imaging studies included a CT head without contrast which did not show any evidence of acute intra-cranial abnormality. Chest x-ray was then performed which showed bilateral rates most marked on the right. Was noted to be hypoxic with O2 sats in low to mid 80s. He was also tachypneic with a blood pressure of 88/61. Was placed on 15L o2 via NRB. ABG after this intervention showed a pH 7.33, pCO2 49.0, PO2 of 61.5 and bicarb 25.9. Oxygen saturation ABG was 90.8. In ER he was given cefepime 2 g IV x 1 and azithromycin 500 mg IV x 1 in addition to decadron 6 mg IV x 1 06/02/20 Shortly after admission patient was intubated and placed on mechanical vent. He was started on precedex and fentanyl for sedation. Additionally started on levophed due to hypotension. 06/03/2020 Overnight patient remained on mechanical ventilation. Patient was agitated wants briefly weaned from sedation. Required addition of her side. No fever 06/04/2020 No significant change in clinical condition. Patient remained stable on vent. Sedated with Precedex and fentanyl. Afebrile overnight. 06/05/2020 Patient's FiO2 was slightly increased to 50%. He was quite agitated once sedation was weaned. No fever or chills. 06/06/2020 Patient continued to require sedation throat today. No significant change in clinical condition otherwise. Remained afebrile overnight. Continued on IV pressors 06/07/2020 Remains on vent 06/08/2020 Patient remaiend stable on vent, continue to wean fio2 Medications: Reviewed: Yes Vitals/I&O/Wt Last Vital Signs Temp 98.5 F 06/08/20 08:00 Pulse 89 06/08/20 12:00 Resp 17 06/08/20 12:00 BP 95/51 06/08/20 12:00 Pulse Ox 91 06/08/20 12:00 06/07/20 06/08/20 06/08/20 22:59 06:59 14:59 Intake Total 132.504 / 752.982 3311 / 1469.929 265.875 / 265.875 Output Total 1050 / 1050 Balance 132.504 / 319.929 100 / 419.929 265.875 / 265.875 Weight last 48 hrs Weight 76.929 kg Weight 76.929 kg Physical Exam Narrative: EXAM NARRATIVE: General : on vent sedated HEENT: ET tube - Right IJ line in place. CVS: NSR Chest: vent ABD : Non-distended Ext : No edema Psych : Sedated Urinary Catheter Management^: Mondragon: Cath Placed During This Visit: yes Reason for Continuing Indwelling Catheter: Accurate Measurement of Urinary Output in Critically Ill Patients Urinary Catheter Date of Insertion: 06/01/20 Urinary Catheter Time of Insertion: 22:10 Data : 06/09/20 04:05 06/09/20 13:10 A&P Assessment and plan (1) Acute hypoxemic respiratory failure: Status: Acute (2) Pneumonia: Status: Acute Qualifiers: Laterality: bilateral Lung location: unspecified part of lung Pneumonia type: due to unspecified organism Qualified Code(s): J18.9 - Pneumonia, unspecified organism (3) COVID-19 virus infection: Status: Acute (4) Acute worsening of stage 3 chronic kidney disease: Status: Acute (5) Adult failure to thrive: Status: Acute Acute respiratory failure with hypoxemia & hypercapnia - Intubated on mechanical ventilation on arrival - Vent settings- CMV, RR-10 tidal volume 400, PIP 22, I-time 1.3, peep of 10 and FiO2 of 55%. - Arterial blood gas showed a pH of 7.40, pCO2 of 36.6, PO2 of 54.5 and a bicarb of 22.8. - Patient- respiratory rate 16, minute ventilation 9.2 - 06/02 - Chest x-ray-> prominent bilateral interstitial pulmonary infiltrates. - Goal RASS - 5 (Initiate Deep sedation) - Fentanyl , Propofol, Versed - Per protocol - Once Deep sedation achieved start Rocuronium - Once stable on sedation and paralytic will consider initiating proning protocol 16hr on 8 off x 3 sessions - Repeat Ferritin, CRP, D-dimer in am - Chest x-ray / ABG in AM Sepsis with hypotension due to COVID19/ Possible bacterial Pneumonia - Completed Remdesivir x 5 days protocol - Can not entirely rule out superimposed bacterial infection - Continue Zosyn 3.375g IV q8hr and vancomycin pharmacy to dose - Follow up on blood culture x 2 - NGTD - Obtain sputum culture - No growth - Continue to wean IV pressors as tolerated - Central line placed. Acute on chronic stage 2-3 kidney failure - Resolved - Hx of Right sided nephrectomy ( unclear ) - Baseline creatinine ranging from 1.3-1.4 - Creatinine 1.8 - > 0.9 - Saline lock IVF - May require dieresis once stable - Monitor urine output - Mondragon in place 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 Prognosis : Guarded CODE STATUS - FULL CODE Attestations Medical Necessity Statement*: Continue hospitalization for management of acute respiratory failure due to covid-19 Time Spent in Patient Care: Greater than 35 minutes (>than 50% of time spent in counselling and/or direct pt care on unit) . Coding Level of Care Code Acute Hr Specialist for [facility] Diagnoses Acute hypoxemic respiratory failure J96.01 Pneumonia J18.9 Laterality: bilateral Lung location: unspecified part of lung Pneumonia type: due to unspecified organism COVID-19 virus infection U07.1 Acute worsening of stage 3 chronic kidney disease N18.30 Adult failure to thrive R62.7
[2020-06-08 17:53] LABS: Arterial Blood Gas Hematocrit 38.8 % (42-52); Blood Gas Allen Test Pos; Blood Gas Operator Identificat MONRO; Blood Gas Sample Site Radial, left; Blood Gas Sample Type Arterial; Carboxyhemoglobin 0.7 %THgb (0.4-20.1); Ionized Calcium Level - ABG 1.2 mmol/L (1.1-1.4); Methemoglobin 0.8 % (0.4-1.5); Oxygen Device VENT; Potassium Level - ABG 4.2 mmol/L (3.5-5.0); Total Hemoglobin 12.7 g/dL (14-18)
[2020-06-08] MEDS: dexamethasone 4 mg/mL INJ 6 MG IVP (17:55)
[2020-06-08 17:56] LABS: ABG PCO2 36.3 mmHg (35-45); Base Excess ABG -1.7 mmol/L (-2.0-2.0); HCO3 ABG 22.6 mmol/L (22-26); HGB O2 Sat 88.6 % (95-100); Oxygen Saturation ABG 89.9
[2020-06-08] MEDS: famotidine 20 mg/2 mL INJ IVP (17:56)
--- NOTE | 2020-06-08 18:45 | PC.NURSE ---
Received bedside report on patient from Kemi KIRKPATRICK. Drips and dosages verified with Kemi KIRKPATRICK and myself. Assumed care at this time.
--- NOTE | 2020-06-08 21:04 | PC.NURSE ---
Received bedside report on patient from Kemi KIRKPATRICK. Assumed care at this time. Drips and dosages verified with Kemi KIRKPATRICK at this time.
--- NOTE | 2020-06-08 21:12 | PC.NURSE ---
Patients daughter called and I updated her on her fathers condition. Discussed the seriousness of his condition and she verbalized understanding and stated she would prepare family on projected outcome.
[2020-06-09] VITALS (33 sets, daily range): BP systolic 87–195; BP diastolic 59–130; PULSE 77–121; RESP 12–22; TEMP 37.1–37.4; O2SAT 84–94; BMI 24.3
--- NOTE | 2020-06-09 02:00 | PC.NURSE ---
Daughter (Elena) called to get a update on her father. She stated that the family was going to get together and make the decision to go with comfort measures or keep him on the ventilator. They were going to talk sometime today and she stated she will call to let us know their decision.
[2020-06-09] MEDS: piperacillin-tazobactam 3.375 GM in sodium chloride 0.9% (plus) 50 ML IV ×3 (03:00→21:28)
[2020-06-09] MEDS: heparin 5,000 unit/mL INJ 1 mL 5000 UNIT SUBCUT ×3 (03:27→21:28)
[2020-06-09] MEDS: vancomycin 1,500 MG/300 ML PIGGYBACK 200 MG IV (03:38)
[2020-06-09] MEDS: dexmedetomidine 400 MCG in sodium chloride 0.9% (100 ml) 100 ML 9.2 MCG IV (05:38)
[2020-06-09 07:34] LABS: Hematocrit 37.8 % (42.0-52.0); Hemoglobin 11.9 g/dL (11.7-16.6); Mean Corpuscular HGB Conc 31.5 g/dL (30.0-36.0); Mean Corpuscular Hemoglobin 28.2 pg (28.0-34.0); Mean Corpuscular Volume 89.6 fL (80-94); Mean Platelet Volume 11.9 fL (7.4-10.4); Platelet Count 183 10^3/cmm (130-400); Red Blood Count 4.22 10^6/uL (4.1-5.3); White Blood Count 9.7 10^3/uL (4.0-10.0)
[2020-06-09 08:16] LABS: Slide Review Slide Review Perform
[2020-06-09 08:55] LABS: Absolute Neutrophil 8.1 10^3/cmm (1.4-6.5); Absolute Segmented Neutrophil 7.2 10/cmm (1.6-7.1); Band Neutrophils Absolute 0.9 10^3/cmm (0.0-1.2); Lymphocytes 6 %; Monocytes Absolute 0.8 10^3/cmm (0.1-0.6); Platelet Estimate Normal (Normal); Segmented Neutrophils 74 %; Total Cells Counted 100 (0-100)
[2020-06-09 08:56] LABS: Eosinophils 0 %
[2020-06-09 14:13] LABS: Alanine Aminotransferase 14 U/L (0-41); Albumin Level 2.4 g/dL (3.5-5.2); Alkaline Phosphatase 118 IU/L (40-130); Anion Gap 14.4 (5-19); Aspartate Amino Transferase 16 U/L (0-40); Blood Urea Nitrogen 34 mg/dL (8-23); Carbon Dioxide 22 mmol/L (22-29); Chloride 109 mmol/L (98-107); Globulin 2.5 g/dL (1.3-4.6); Glucose 91 mg/dL (65-115); Osmolality Calculated 299 mOsm/kg (285-295); Potassium 4.4 mmol/L (3.5-5.1); Sodium 141 mmol/L (136-145); Total Bilirubin 0.7 mg/dL (0.15-1.2); Total Protein 4.9 g/dL (6.6-8.7)
[2020-06-09] MEDS: ipratropium-albuterol 3 mL Neb INHALATION (15:26)
--- NOTE | 2020-06-09 19:00 | PC.NURSE ---
Received report from KAYA Mcmullen.
--- NOTE | 2020-06-09 20:54 | PM.PN ---
Subjective Subjective: Interval history: 84-year-old male with a past medical history significant significant for closed head injury, osteoporosis, anxiety, depression, iron deficiency knee anemia, obstructive sleep apnea, hiatal hernia,hyperlipidemia,, hypertension, chronic stage 3 kidney disease s/p prior right nephrectomy, jehovah witness with prior GI bleed (refused transfusions in the past) and advanced dementia who presented to the hospital with generalized weakness. Patient does not communicate and at baseline is confused due to dementia. He was not able to provide history which was obtained from review of records and discussion with ER staff. Patient upon arrival to ER his initial laboratory workup showed a WBC of 12.6, hemoglobin of 13.7, hematocrit of 43.3 and platelet count of 175. INR of 0.83. Sodium 140, potassium 3.9, chloride 103, bicarb 25, BUN 25 and creatinine 1.5. Prior creatinine in 2018 was 1.3. AST of 45, ALT of 21, ALP of 122, CRP of 131. ProNBP of 1441 and a procalcitonin of 0.69. COVID-19 ag was found to be positive. Imaging studies included a CT head without contrast which did not show any evidence of acute intra-cranial abnormality. Chest x-ray was then performed which showed bilateral rates most marked on the right. Was noted to be hypoxic with O2 sats in low to mid 80s. He was also tachypneic with a blood pressure of 88/61. Was placed on 15L o2 via NRB. ABG after this intervention showed a pH 7.33, pCO2 49.0, PO2 of 61.5 and bicarb 25.9. Oxygen saturation ABG was 90.8. In ER he was given cefepime 2 g IV x 1 and azithromycin 500 mg IV x 1 in addition to decadron 6 mg IV x 1 06/02/20 Shortly after admission patient was intubated and placed on mechanical vent. He was started on precedex and fentanyl for sedation. Additionally started on levophed due to hypotension. 06/03/2020 Overnight patient remained on mechanical ventilation. Patient was agitated wants briefly weaned from sedation. Required addition of her side. No fever 06/04/2020 No significant change in clinical condition. Patient remained stable on vent. Sedated with Precedex and fentanyl. Afebrile overnight. 06/05/2020 Patient's FiO2 was slightly increased to 50%. He was quite agitated once sedation was weaned. No fever or chills. 06/06/2020 Patient continued to require sedation throat today. No significant change in clinical condition otherwise. Remained afebrile overnight. Continued on IV pressors 06/07/2020 Remains on vent 06/08/2020 Patient remaiend stable on vent, continue to wean fio2 06/09/2020 Noted to be hypertensive, given lopressor, Low grade fevers Medications: Reviewed: Yes Vitals/I&O/Wt Last Vital Signs Temp 99.3 F 06/09/20 08:00 Pulse 108 H 06/09/20 20:00 Resp 12 06/09/20 20:00 BP 174/96 06/09/20 20:00 Pulse Ox 90 06/09/20 20:00 06/09/20 06/09/20 06/09/20 06:59 14:59 22:59 Intake Total 350 / 1065.875 131.573 / 131.573 77.594 / 209.167 Output Total 1000 / 1450 450 / 450 Balance -650 / -384.125 131.573 / 131.573 -372.406 / -240.833 Weight last 48 hrs Weight 76.929 kg Weight 76.929 kg Physical Exam Narrative: EXAM NARRATIVE: General : on vent sedated HEENT: ET tube - Right IJ line in place. CVS: NSR Chest: vent ABD : Non-distended Ext : No edema Psych : Sedated Urinary Catheter Management^: Mondragon: Cath Placed During This Visit: yes Reason for Continuing Indwelling Catheter: Accurate Measurement of Urinary Output in Critically Ill Patients Urinary Catheter Date of Insertion: 06/01/20 Urinary Catheter Time of Insertion: 22:10 Data : 06/09/20 04:05 06/09/20 13:10 A&P Assessment and plan (1) Acute hypoxemic respiratory failure: Status: Acute (2) Pneumonia: Status: Acute Qualifiers: Laterality: bilateral Lung location: unspecified part of lung Pneumonia type: due to unspecified organism Qualified Code(s): J18.9 - Pneumonia, unspecified organism (3) COVID-19 virus infection: Status: Acute (4) Acute worsening of stage 3 chronic kidney disease: Status: Acute (5) Adult failure to thrive: Status: Acute Acute respiratory failure with hypoxemia & hypercapnia - Intubated on mechanical ventilation on arrival - Vent settings- CMV, RR-10 tidal volume 400, PIP 22, I-time 1.3, peep of 10 and FiO2 of 55%. - 06/09 - Vent CMV TV of 400, RR 12, PIP of 20, Pplat 25, iTime 1.2 Fio2 decreased to 50% - Arterial blood gas showed a pH of 7.40, pCO2 of 36.6, PO2 of 54.5 and a bicarb of 22.8. - Patient- respiratory rate 16, minute ventilation 9.2 - 06/02 - Chest x-ray-> prominent bilateral interstitial pulmonary infiltrates. - Goal RASS - 5 (Initiate Deep sedation) - Fentanyl , Propofol, Versed - Per protocol - P/F ratio ok - weaning fiow - hold off on proning - Repeat Ferritin, CRP, D-dimer in am - Chest x-ray / ABG in AM Sepsis with hypotension due to COVID19/ Possible bacterial Pneumonia - Completed Remdesivir x 5 days protocol - Can not entirely rule out superimposed bacterial infection - Continue Zosyn 3.375g IV q8hr and vancomycin pharmacy to dose - Follow up on blood culture x 2 - NGTD - Obtain sputum culture - No growth - Continue to wean IV pressors as tolerated - Central line placed. - Pro-calcitonin in am Acute on chronic stage 2-3 kidney failure - Resolved - Hx of Right sided nephrectomy ( unclear ) - Baseline creatinine ranging from 1.3-1.4 - Creatinine 1.8 - > 0.9 - Saline lock IVF - May require dieresis once stable - Monitor urine output - Mondragon in place 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 Prognosis : Guarded CODE STATUS - FULL CODE Attestations Medical Necessity Statement*: Continue hospitalization for management of covid-19 pneumonia leading to respiratory failure on vent Time Spent in Patient Care: Greater than 35 minutes (>than 50% of time spent in counselling and/or direct pt care on unit). Coding Level of Care Code Acute Music Sound Light Technician for [facility] Diagnoses Acute hypoxemic respiratory failure J96.01 Pneumonia J18.9 Laterality: bilateral Lung location: unspecified part of lung Pneumonia type: due to unspecified organism COVID-19 virus infection U07.1 Acute worsening of stage 3 chronic kidney disease N18.30 Adult failure to thrive R62.7
[2020-06-09] MEDS: famotidine 20 mg/2 mL INJ IVP (21:27)
[2020-06-09] MEDS: dexamethasone 4 mg/mL INJ 6 MG IVP (21:28)
--- NOTE | 2020-06-09 22:00 | PC.NURSE ---
Family called to ask to have this read to pt. Daughter Stefani. Cecelia Ko [place], Elizabeth We love you and your best dad ever, Do your best to relax, enjoy music, trust in [employer] [place].
--- NOTE | 2020-06-09 23:39 | PC.NURSE ---
pt biting at the ET tube. Repositioned and continued to monitor, pt's radio on per family request
[2020-06-10] VITALS (45 sets, daily range): BP systolic 118–183; BP diastolic 77–122; PULSE 69–133; RESP 12–28; TEMP 37.1–37.4; O2SAT 79–96
--- NOTE | 2020-06-10 00:06 | PC.NURSE ---
Turn pt to his left side, oral care and suction.
[2020-06-10] MEDS: famotidine 20 mg/2 mL INJ IVP ×3 (01:13→20:56)
[2020-06-10 01:59] LABS: Hematocrit 37.2 % (42.0-52.0); Hemoglobin 11.8 g/dL (11.7-16.6); Mean Corpuscular HGB Conc 31.7 g/dL (30.0-36.0); Mean Corpuscular Hemoglobin 28.2 pg (28.0-34.0); Mean Platelet Volume 11.3 fL (7.4-10.4); Platelet Count 152 10^3/cmm (130-400); Red Blood Count 4.18 10^6/uL (4.1-5.3); Red Cell Distribution Width 14.8 % (12.1-15.1); White Blood Count 10.8 10^3/uL (4.0-10.0)
[2020-06-10] MEDS: heparin 5,000 unit/mL INJ 1 mL 5000 UNIT SUBCUT ×3 (02:23→17:46)
[2020-06-10] MEDS: vancomycin 1,500 MG/300 ML PIGGYBACK 200 MG IV (02:23)
[2020-06-10 02:42] LABS: Alanine Aminotransferase 15 U/L (0-41); Albumin Level 2.2 g/dL (3.5-5.2); Alkaline Phosphatase 123 IU/L (40-130); Aspartate Amino Transferase 18 U/L (0-40); Blood Urea Nitrogen 29 mg/dL (8-23); Calcium 7.7 mg/dL (8.5-10.5); Carbon Dioxide 25 mmol/L (22-29); Chloride 110 mmol/L (98-107); Globulin 2.1 g/dL (1.3-4.6); Glucose 117 mg/dL (65-115); Osmolality Calculated 299 mOsm/kg (285-295); Sodium 141 mmol/L (136-145); Total Protein 4.3 g/dL (6.6-8.7)
[2020-06-10 02:43] LABS: D Dimer 9.74 ug/mIFEU (0-0.59)
[2020-06-10 02:45] LABS: Lactate (Lactic Acid level) 1.1 mmol/L (0.5-2.2)
[2020-06-10 02:47] LABS: Anion Gap 10.6 (5-19); Potassium 4.6 mmol/L (3.5-5.1)
[2020-06-10 03:03] LABS: Anisocytosis 1+; Eosinophils 0 %; Hypochromasia 1+; Lymphocytes 5 %; Macrocytosis Trace; Monocytes Absolute 0.5 10^3/cmm (0.1-0.6); Platelet Estimate Normal (Normal); Segmented Neutrophils 83 %; Total Cells Counted 100 (0-100)
[2020-06-10 03:12] LABS: Ferritin 325 ng/mL (30-400)
[2020-06-10 04:03] LABS: ABG PCO2 36.5 mmHg (35-45); ABG PH Result 7.43 (7.35-7.45); Arterial Blood Gas Hematocrit 36.8 % (42-52); Base Excess ABG -0.2 mmol/L (-2.0-2.0); Blood Gas Allen Test Pos; Blood Gas Sample Type Arterial
[2020-06-10 04:04] LABS: Blood Gas Operator Identificat HARKR; Blood Gas Sample Site Radial, left; Oxygen Device VENT
[2020-06-10] MEDS: piperacillin-tazobactam 3.375 GM in sodium chloride 0.9% (plus) 50 ML IV ×3 (04:38→18:10)
--- NOTE | 2020-06-10 06:52 | PC.NURSE ---
Report to KAYA Mcmullen
[2020-06-10] MEDS: ipratropium-albuterol 3 mL Neb INHALATION ×4 (07:30→23:05)
--- NOTE | 2020-06-10 11:17 | PC.NURSE ---
Washed and face
--- NOTE | 2020-06-10 12:35 | PC.SOCIAL ---
Gave IMM to pt's son, Tian [phone]. Signed, dated and timed. Copy in chart.
--- NOTE | 2020-06-10 12:41 | PC.SOCIAL ---
Attempted to give IMM to pt's daughter [phone]. She said her sister will call us back and will provided IMM when she does.
[2020-06-10] MEDS: dexmedetomidine 400 MCG in sodium chloride 0.9% (100 ml) 100 ML 9.2 MCG IV (15:51)
[2020-06-10] MEDS: FUROsemide 10 mg/mL SDV 4mL 40 MG IVP (17:05)
--- NOTE | 2020-06-10 17:19 | PM.PN ---
Subjective Subjective: Interval history: 84-year-old male with a past medical history significant significant for closed head injury, osteoporosis, anxiety, depression, iron deficiency knee anemia, obstructive sleep apnea, hiatal hernia,hyperlipidemia,, hypertension, chronic stage 3 kidney disease s/p prior right nephrectomy, jehovah witness with prior GI bleed (refused transfusions in the past) and advanced dementia who presented to the hospital with generalized weakness. Patient does not communicate and at baseline is confused due to dementia. He was not able to provide history which was obtained from review of records and discussion with ER staff. Patient upon arrival to ER his initial laboratory workup showed a WBC of 12.6, hemoglobin of 13.7, hematocrit of 43.3 and platelet count of 175. INR of 0.83. Sodium 140, potassium 3.9, chloride 103, bicarb 25, BUN 25 and creatinine 1.5. Prior creatinine in 2018 was 1.3. AST of 45, ALT of 21, ALP of 122, CRP of 131. ProNBP of 1441 and a procalcitonin of 0.69. COVID-19 ag was found to be positive. Imaging studies included a CT head without contrast which did not show any evidence of acute intra-cranial abnormality. Chest x-ray was then performed which showed bilateral rates most marked on the right. Was noted to be hypoxic with O2 sats in low to mid 80s. He was also tachypneic with a blood pressure of 88/61. Was placed on 15L o2 via NRB. ABG after this intervention showed a pH 7.33, pCO2 49.0, PO2 of 61.5 and bicarb 25.9. Oxygen saturation ABG was 90.8. In ER he was given cefepime 2 g IV x 1 and azithromycin 500 mg IV x 1 in addition to decadron 6 mg IV x 1 06/02/20 Shortly after admission patient was intubated and placed on mechanical vent. He was started on precedex and fentanyl for sedation. Additionally started on levophed due to hypotension. 06/03/2020 Overnight patient remained on mechanical ventilation. Patient was agitated wants briefly weaned from sedation. Required addition of her side. No fever 06/04/2020 No significant change in clinical condition. Patient remained stable on vent. Sedated with Precedex and fentanyl. Afebrile overnight. 06/05/2020 Patient's FiO2 was slightly increased to 50%. He was quite agitated once sedation was weaned. No fever or chills. 06/06/2020 Patient continued to require sedation throat today. No significant change in clinical condition otherwise. Remained afebrile overnight. Continued on IV pressors 06/07/2020 Remains on vent 06/08/2020 Patient remaiend stable on vent, continue to wean fio2 06/09/2020 Noted to be hypertensive, given lopressor, Low grade fevers 06/10/2020 Extubated very confused Medications: Reviewed: Yes Vitals/I&O/Wt Last Vital Signs Temp 98.9 F 06/11/20 00:24 Pulse 100 06/11/20 00:00 Resp 27 H 06/11/20 00:00 BP 165/107 06/11/20 00:00 Pulse Ox 86 L 06/11/20 00:00 06/10/20 06/10/20 06/11/20 14:59 22:59 06:59 Intake Total 94.833 / 94.833 50 / 144.833 Output Total 300 / 300 Balance 94.833 / 94.833 -250 / -155.167 Weight last 48 hrs Weight 81.363 kg Weight 76.929 kg Physical Exam Narrative: EXAM NARRATIVE: General : on vent sedated HEENT: ET tube - Right IJ line in place. CVS: NSR Chest: vent ABD : Non-distended Ext : No edema Psych : Sedated Urinary Catheter Management^: Mondragon: Cath Placed During This Visit: yes Reason for Continuing Indwelling Catheter: Acute Urinary Retention or Obstruction Urinary Catheter Date of Insertion: 06/01/20 Urinary Catheter Time of Insertion: 22:10 Data : 06/10/20 01:45 06/10/20 01:45 A&P Assessment and plan (1) Acute hypoxemic respiratory failure: Status: Acute (2) Pneumonia: Status: Acute Qualifiers: Laterality: bilateral Lung location: unspecified part of lung Pneumonia type: due to unspecified organism Qualified Code(s): J18.9 - Pneumonia, unspecified organism (3) COVID-19 virus infection: Status: Acute (4) Acute worsening of stage 3 chronic kidney disease: Status: Acute (5) Adult failure to thrive: Status: Acute Acute respiratory failure with hypoxemia & hypercapnia - Intubated on mechanical ventilation on arrival - Extubated Sepsis with hypotension due to COVID19/ Possible bacterial Pneumonia - Completed Remdesivir x 5 days protocol - Can not entirely rule out superimposed bacterial infection - Continue Zosyn 3.375g IV q8hr and vancomycin pharmacy to dose - Follow up on blood culture x 2 - NGTD - Obtain sputum culture - No growth Acute on chronic stage 2-3 kidney failure - Resolved - Hx of Right sided nephrectomy ( unclear ) - Baseline creatinine ranging from 1.3-1.4 - Creatinine 1.8 - > 0.9 - Saline lock IVF - May require dieresis once stable - Monitor urine output - Mondragon in place 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 Prognosis : Guarded CODE STATUS - FULL CODE Attestations Medical Necessity Statement*: continue hospital stay for management of respiratory failure Time Spent in Patient Care: Greater than 35 minutes (>than 50% of time spent in counselling and/or direct pt care on unit). Coding Level of Care Code Acute Director Law Enforcement for [facility] Diagnoses Acute hypoxemic respiratory failure J96.01 Pneumonia J18.9 Laterality: bilateral Lung location: unspecified part of lung Pneumonia type: due to unspecified organism COVID-19 virus infection U07.1 Acute worsening of stage 3 chronic kidney disease N18.30 Adult failure to thrive R62.7
[2020-06-10] MEDS: haloperidol inj 5 mg/mL INJ 1 mL IM (17:45)
[2020-06-10] MEDS: dexamethasone 4 mg/mL INJ 6 MG IVP (17:45)
[2020-06-10] MEDS: midazolam 1 mg/mL INJ 2 mL 2 MG IVP (18:03)
[2020-06-11] VITALS (42 sets, daily range): BP systolic 88–165; BP diastolic 57–110; PULSE 83–142; RESP 20–43; TEMP 36.4–37.2; O2SAT 84–94; BMI 25.7
[2020-06-11] MEDS: dexmedetomidine 400 MCG in sodium chloride 0.9% (100 ml) 100 ML 23 MCG IV ×2 (01:19→03:40)
[2020-06-11] MEDS: vancomycin 1,500 MG/300 ML PIGGYBACK 200 MG IV (03:41)
[2020-06-11] MEDS: piperacillin-tazobactam 3.375 GM in sodium chloride 0.9% (plus) 50 ML IV ×3 (03:42→20:20)
[2020-06-11] MEDS: heparin 5,000 unit/mL INJ 1 mL 5000 UNIT SUBCUT ×3 (03:42→20:19)
[2020-06-11] MEDS: ipratropium-albuterol 3 mL Neb INHALATION ×3 (03:59→19:56)
[2020-06-11 05:14] LABS: Basophils # 0.1 10^3/uL (0.0-0.1); Basophils % 0.4 %; Hematocrit 39.4 % (42.0-52.0); Hemoglobin 12.5 g/dL (11.7-16.6); Lymphocytes # 0.2 10^3/uL (0.8-4.8); Lymphocytes % 1.3 %; Mean Corpuscular HGB Conc 31.7 g/dL (30.0-36.0); Mean Corpuscular Hemoglobin 28.3 pg (28.0-34.0); Mean Corpuscular Volume 89.3 fL (80-94); Mean Platelet Volume 12.5 fL (7.4-10.4); Monocytes # 0.7 10^3/uL (0.2-0.9); Neutrophils # 11.32 10^3/uL (1.8-7.7); Neutrophils % 86.2 %; Nucleated Red Blood Cells % 0 %; Platelet Count 163 10^3/cmm (130-400); Red Blood Count 4.41 10^6/uL (4.1-5.3); Red Cell Distribution Width 14.6 % (12.1-15.1); White Blood Count 13.1 10^3/uL (4.0-10.0)
[2020-06-11 05:30] LABS: Anion Gap 13.4 (5-19); Blood Urea Nitrogen 32 mg/dL (8-23); Carbon Dioxide 27 mmol/L (22-29); Chloride 106 mmol/L (98-107); Glucose 129 mg/dL (65-115); Osmolality Calculated 303 mOsm/kg (285-295); Potassium 4.4 mmol/L (3.5-5.1); Sodium 142 mmol/L (136-145)
[2020-06-11 07:08] LABS: Slide Review Slide Review Perform
[2020-06-11] MEDS: dexmedetomidine 400 MCG in sodium chloride 0.9% (100 ml) 100 ML 18.4 MCG IV ×2 (09:17→16:28)
[2020-06-11] MEDS: famotidine 20 mg/2 mL INJ IVP ×2 (10:11→20:19)
--- NOTE | 2020-06-11 11:44 | P.PN_ITS ---
Subjective Subjective: Interval history: was extubated on 06/10. Currently on BIPAP :Saturating 85-89 % at FIO2 : 80 % IPAP/EPAP: 18/11 Vitals and labs have been reviewed. Medications: Reviewed: Yes Vitals/I&O/Wt Last Vital Signs Temp 97.7 F 06/11/20 08:00 Pulse 95 06/11/20 10:31 Resp 26 H 06/11/20 10:00 BP 135/90 06/11/20 10:00 Pulse Ox 88 L 06/11/20 10:31 06/10/20 06/11/20 06/11/20 22:59 06:59 14:59 Intake Total 100 / 194.833 503.626 / 698.459 91.517 / 91.517 Output Total 300 / 300 1000 / 1300 Balance -200 / -105.167 -496.374 / -601.541 91.517 / 91.517 Weight last 48 hrs Weight 81.335 kg Weight 81.363 kg Physical Exam HENMT: COMMON NORMALS: normocephalic and atraumatic HEAD & SCALP: normocephalic and atraumatic Resp: EFFORT & INSPECTION: Yes symmetric chest movement Cardio: COMMON NORMALS: regular rate, regular rhythm, S1 normal heart sound present, S2 normal heart sound present, No gallops present (Cardio), No murmurs present (Cardio), No rub (Cardio) and Peripheral pulses 2+ throughout RATE: regular rate RHYTHM: regular rhythm HEART SOUNDS: S1 normal heart sound present and S2 normal heart sound present PERIPHERAL PULSES: Peripheral pulses 2+ throughout GI: COMMON NORMALS: Normal to inspection, nondistended, normoactive bowel emerald nds present, Soft to palpation, non-tender, No hepatosplenomegaly present and no masses AUSCULTATION: Yes normoactive bowel sounds PALPATION: Yes Soft to palpation and Yes No hepatosplenomegaly present RECTAL EXAM: Yes deferred Extremity: COMMON NORMALS: no clubbing, cyanosis or edema and no pedal edema Urinary Catheter Management^: Mondragon: Cath Placed During This Visit: yes Reason for Continuing Indwelling Catheter: Accurate Measurement of Urinary Output in Critically Ill Patients Urinary Catheter Date of Insertion: 06/01/20 Urinary Catheter Time of Insertion: 22:10 Data : 06/11/20 04:05 01/07/21 04:05 A&P Assessment and plan (1) Acute hypoxemic respiratory failure: Status: Acute (2) Encephalopathy: Status: Acute (3) Pneumonia: Status: Acute Qualifiers: Laterality: bilateral Lung location: unspecified part of lung Pneumonia type: due to unspecified organism Qualified Code(s): J18.9 - Pneumonia, unspecified organism (4) COVID-19 virus infection: Status: Acute (5) Acute worsening of stage 3 chronic kidney disease: Status: Acute (6) Adult failure to thrive: Status: Acute Acute respiratory failure with hypoxemia & hypercapnia - Intubated on mechanical ventilation on arrival - Extubated -Currently on BIPAP Sepsis with hypotension due to COVID19/ Possible bacterial Pneumonia - Completed Remdesivir x 5 days protocol - Can not entirely rule out superimposed bacterial infection - Continue Zosyn 3.375g IV q8hr and vancomycin pharmacy to dose - Follow up on blood culture x 2 - NGTD - Obtain sputum culture - No growth Ac Encephalopathy 2/2 Sespsis/ Hypoxic R/F -Plan as 1 and 2 Acute on chronic stage 2-3 kidney failure - Resolved - Hx of Right sided nephrectomy ( unclear ) - Baseline creatinine ranging from 1.3-1.4 - Creatinine 1.8 - > 0.9 - Monitor urine output - Mondragon in place 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
[2020-06-11] MEDS: FUROsemide 10 mg/mL SDV 4mL 40 MG IVP (13:02)
[2020-06-11] MEDS: morphine 4 mg/mL SDV 1 mL 2 MG IVP (13:37)
[2020-06-11] MEDS: adenosine 3 mg/mL SDV 2mL 6 MG IVP (15:57)
[2020-06-11] MEDS: metoprolol tartrate 1 mg/1 mL SDV 5 mL 5 MG IV (15:57)
--- NOTE | 2020-06-11 20:15 | PC.NURSE ---
patient moaning out and pulling at restraints. Precedex titrated to 1 Will monitor effect
[2020-06-11] MEDS: dexamethasone 4 mg/mL INJ 6 MG IVP (20:20)
--- NOTE | 2020-06-11 21:20 | PC.NURSE ---
patient still restless and moaning very labored breathing noted precedex titrated to 1.2 with verbal override of normal protocol via verbal order from provider. Will monitor for effect
--- NOTE | 2020-06-11 22:20 | PC.NURSE ---
New bag of precedex started but computer messed up and listed it as infused. Did not catch computer glitch until too late to correct it.
[2020-06-12] VITALS (37 sets, daily range): BP systolic 70–126; BP diastolic 52–87; PULSE 65–124; RESP 18–44; TEMP 36.3–37.7; O2SAT 81–94
--- NOTE | 2020-06-12 | PC.NURSE ---
Patient Pulse rate noted to be in the 130-150's titrated cardizem drip to 10 mL/hr will monitor for change in patient vs
--- NOTE | 2020-06-12 01:30 | PC.NURSE ---
patient still experiencing periods of elevated pulse rate. cardizem titrated to 12.5 ml/hr will monitor for effect.
[2020-06-12 02:21] LABS: ABG PCO2 34.5 mmHg (35-45); Arterial Blood Gas Hematocrit 43.3 % (42-52); Base Excess ABG 3.9 mmol/L (-2.0-2.0); Blood Gas Allen Test Pos; Blood Gas Operator Identificat HARKR; Blood Gas Sample Site Radial, left; Blood Gas Sample Type Arterial; HCO3 ABG 26.9 mmol/L (22-26); Oxygen Device BIPAP; PO2 ABG 46.3 mmHg (80.0-100.0)
[2020-06-12] MEDS: dexmedetomidine 400 MCG in sodium chloride 0.9% (100 ml) 100 ML 27.6 MCG IV (02:30)
[2020-06-12] MEDS: FUROsemide 10 mg/mL SDV 4mL 40 MG IVP (03:09)
[2020-06-12] MEDS: vancomycin 1,500 MG/300 ML PIGGYBACK 200 MG IV (03:10)
[2020-06-12] MEDS: heparin 5,000 unit/mL INJ 1 mL 5000 UNIT SUBCUT ×3 (03:10→17:33)
[2020-06-12] MEDS: piperacillin-tazobactam 3.375 GM in sodium chloride 0.9% (plus) 50 ML IV ×3 (03:11→18:14)
--- NOTE | 2020-06-12 05:00 | PC.NURSE ---
Note to provider and in person meeting with provider. Patient pulse down to 70's and 80's cardizem titrated down to 7.5 ml/hr, Provider in room assessing patient and spoke of turning cardizem down to 5 then shortly there after said to turn off cardizem drip. Provider stated if patient pulse rate climbs again to call and see about some digoxin push instead of restarting cardizem Provider not concerned with actual blood pressure as long as MAP above 60 but would like to see it above 65. Will continue to monitor. Provider also noted that may need to give some albumin to help try and pull of some of the third spaced fluid that is weeping from upper left extremity
[2020-06-12 05:39] LABS: Basophils # 0.1 10^3/uL (0.0-0.1); Basophils % 0.4 %; Eosinophils % 0.1 %; Hematocrit 42.7 % (42.0-52.0); Hemoglobin 13.5 g/dL (11.7-16.6); Lymphocytes # 0.4 10^3/uL (0.8-4.8); Lymphocytes % 2.4 %; Mean Corpuscular HGB Conc 31.6 g/dL (30.0-36.0); Mean Corpuscular Hemoglobin 27.7 pg (28.0-34.0); Mean Corpuscular Volume 87.5 fL (80-94); Mean Platelet Volume 12.8 fL (7.4-10.4); Monocytes # 0.6 10^3/uL (0.2-0.9); Monocytes % 3.3 %; Neutrophils # 16.33 10^3/uL (1.8-7.7); Neutrophils % 89.3 %; Nucleated Red Blood Cells % 0 %; Platelet Count 191 10^3/cmm (130-400); Red Blood Count 4.88 10^6/uL (4.1-5.3); Red Cell Distribution Width 14.5 % (12.1-15.1); White Blood Count 18.3 10^3/uL (4.0-10.0)
[2020-06-12 06:06] LABS: Alanine Aminotransferase 12 U/L (0-41); Albumin Level 2.6 g/dL (3.5-5.2); Alkaline Phosphatase 164 IU/L (40-130); Anion Gap 17.2 (5-19); Aspartate Amino Transferase 17 U/L (0-40); Blood Urea Nitrogen 39 mg/dL (8-23); Calcium 8.2 mg/dL (8.5-10.5); Carbon Dioxide 27 mmol/L (22-29); Chloride 105 mmol/L (98-107); Globulin 3.1 g/dL (1.3-4.6); Glucose 107 mg/dL (65-115); Magnesium 1.8 mg/dL (1.7-2.3); Osmolality Calculated 310 mOsm/kg (285-295); Potassium 4.2 mmol/L (3.5-5.1); Sodium 145 mmol/L (136-145); Total Bilirubin 1.3 mg/dL (0.15-1.2); Total Protein 5.7 g/dL (6.6-8.7)
[2020-06-12 06:50] LABS: ABG PH Result 7.47 (7.35-7.45); Arterial Blood Gas Hematocrit 46.2 % (42-52); Base Excess ABG 1.8 mmol/L (-2.0-2.0); Blood Gas Allen Test Pos; Blood Gas Operator Identificat HARKR; Blood Gas Sample Site Radial, right; Blood Gas Sample Type Arterial; HCO3 ABG 24.9 mmol/L (22-26); Oxygen Device BIPAP; PO2 ABG 59.8 mmHg (80.0-100.0)
[2020-06-12] MEDS: dexmedetomidine 400 MCG in sodium chloride 0.9% (100 ml) 100 ML 23 MCG IV ×3 (08:17→18:15)
--- NOTE | 2020-06-12 08:24 | PC.NURSE ---
Patient BP more stable at this time with MAP at 69 and heart rate maintaining controlled in the 70 to 90 range. patient still on 100% FiO2 on Bipap with oxygenation in the low 90's Precedex maintaining at 1 at this time. Will continue to monitor and report given to day shift nurse.
--- NOTE | 2020-06-12 09:26 | PM.PN ---
Subjective Subjective: Interval history: is on BIPAP: :Saturating in low 90 % on I/E : 16/01 @ FIO2 : 100 %. Has remained Afebrile, Still in A.fib with RVR on Cardizem Drip . Medications: Reviewed: Yes Vitals/I&O/Wt Last Vital Signs Temp 97.4 F L 06/12/20 05:00 Pulse 80 06/12/20 09:09 Resp 29 H 06/12/20 09:09 BP 84/58 06/12/20 06:00 Pulse Ox 92 06/12/20 09:09 06/11/20 06/12/20 06/12/20 22:59 06:59 14:59 Intake Total 104.0 / 349.517 552.75 / 902.267 50 / 50 Output Total 1000 / 1000 1100 / 2100 Balance -896.0 / -650.483 -547.25 / -1197.733 50 / 50 Weight last 48 hrs Weight 81.335 kg Physical Exam HENMT: COMMON NORMALS: normocephalic and atraumatic HEAD & SCALP: normocephalic and atraumatic Resp: EFFORT & INSPECTION: Yes symmetric chest movement OTHER: B/L Minimal Ronchii present, with B/L basal Crackles. Cardio: COMMON NORMALS: regular rate, regular rhythm, S1 normal heart sound present, S2 normal heart sound present, No gallops present (Cardio), No murmurs present (Cardio), No rub (Cardio) and Peripheral pulses 2+ throughout RATE: regular rate RHYTHM: regular rhythm HEART SOUNDS: S1 normal heart sound present and S2 normal heart sound present PERIPHERAL PULSES: Peripheral pulses 2+ throughout GI: COMMON NORMALS: Normal to inspection, nondistended, normoactive bowel sounds present, Soft to palpation, non-tender, No hepatosplenomegaly present and no masses AUSCULTATION: Yes normoactive bowel sounds PALPATION: Yes Soft to palpation and Yes No hepatosplenomegaly present RECTAL EXAM: Yes deferred Extremity: COMMON NORMALS: no clubbing, cyanosis or edema and no pedal edema Urinary Catheter Management^: Mondragon: Cath Placed During This Visit: yes Reason for Continuing Indwelling Catheter: Accurate Measurement of Urinary Output in Critically Ill Patients Urinary Catheter Date of Insertion: 06/01/20 Urinary Catheter Time of Insertion: 22:10 Data : 06/12/20 03:40 06/12/20 03:40 A&P Assessment and plan (1) Acute hypoxemic respiratory failure: Status: Acute (2) Encephalopathy: Status: Acute (3) Atrial fibrillation with RVR: Status: Acute (4) Pneumonia: Status: Acute Qualifiers: Laterality: bilateral Lung location: unspecified part of lung Pneumonia type: due to unspecified organism Qualified Code(s): J18.9 - Pneumonia, unspecified organism (5) COVID-19 virus infection: Status: Acute (6) Acute worsening of stage 3 chronic kidney disease: Status: Acute (7) Adult failure to thrive: Status: Acute Acute respiratory failure with hypoxemia & hypercapnia - Intubated on mechanical ventilation on arrival - Extubated -Currently on BIPAP Sepsis with hypotension due to COVID19/ Possible bacterial Pneumonia - Completed Remdesivir x 5 days protocol - Can not entirely rule out superimposed bacterial infection - Continue Zosyn 3.375g IV q8hr and vancomycin pharmacy to dose - Follow up on blood culture x 2 - NGTD - Obtain sputum culture - No growth Ac Encephalopathy 2/2 Sespsis/ Hypoxic R/F -Plan as 1 and 2 -A.FIB with RVR :2/2 to sepsis and Hypoxemia On Cardizem Drip. -Switch to PO medications when appropriate. 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
--- NOTE | 2020-06-12 09:29 | PC.SOCIAL ---
*IMM* Updated IMM gave to the . She stated that she understood.
[2020-06-12] MEDS: famotidine 20 mg/2 mL INJ IVP ×2 (09:34→22:21)
[2020-06-12] MEDS: dexamethasone 4 mg/mL INJ 6 MG IVP (17:33)
[2020-06-12] MEDS: ipratropium-albuterol 3 mL Neb INHALATION (20:00)
[2020-06-12] MEDS: morphine 4 mg/mL SDV 1 mL 2 MG IVP (22:37)
[2020-06-13] VITALS (36 sets, daily range): BP systolic 93–186; BP diastolic 52–112; PULSE 82–145; RESP 17–35; TEMP 36.5–37.5; O2SAT 86–97
[2020-06-13] MEDS: dexmedetomidine 400 MCG in sodium chloride 0.9% (100 ml) 100 ML 23 MCG IV ×5 (00:40→21:11)
[2020-06-13 02:17] LABS: Vancomycin Trough 28.2 ug/mL (10-15)
[2020-06-13] MEDS: piperacillin-tazobactam 3.375 GM in sodium chloride 0.9% (plus) 50 ML IV ×3 (03:04→18:16)
[2020-06-13] MEDS: heparin 5,000 unit/mL INJ 1 mL 5000 UNIT SUBCUT ×3 (03:05→18:15)
[2020-06-13 04:41] LABS: Basophils % 0.2 %; Hematocrit 49.8 % (42.0-52.0); Hemoglobin 15.9 g/dL (11.7-16.6); Lymphocytes # 0.2 10^3/uL (0.8-4.8); Lymphocytes % 2.1 %; Mean Corpuscular HGB Conc 31.9 g/dL (30.0-36.0); Mean Corpuscular Volume 87.8 fL (80-94); Mean Platelet Volume 12.5 fL (7.4-10.4); Monocytes # 0.6 10^3/uL (0.2-0.9); Monocytes % 4.9 %; Neutrophils # 10.06 10^3/uL (1.8-7.7); Neutrophils % 89.9 %; Nucleated Red Blood Cells % 0 %; Platelet Count 161 10^3/cmm (130-400); Red Blood Count 5.67 10^6/uL (4.1-5.3); Red Cell Distribution Width 14.7 % (12.1-15.1); White Blood Count 11.2 10^3/uL (4.0-10.0)
[2020-06-13 05:17] LABS: Alanine Aminotransferase 14 U/L (0-41); Albumin Level 2.3 g/dL (3.5-5.2); Alkaline Phosphatase 116 IU/L (40-130); Blood Urea Nitrogen 63 mg/dL (8-23); Calcium 7.7 mg/dL (8.5-10.5); Carbon Dioxide 24 mmol/L (22-29); Chloride 110 mmol/L (98-107); Glucose 146 mg/dL (65-115); Magnesium 2.2 mg/dL (1.7-2.3); Osmolality Calculated 327 mOsm/kg (285-295); Sodium 148 mmol/L (136-145); Total Bilirubin 0.9 mg/dL (0.15-1.2); Total Protein 5.3 g/dL (6.6-8.7)
[2020-06-13 05:30] LABS: ABG PCO2 36.1 mmHg (35-45); ABG PH Result 7.45 (7.35-7.45); Arterial Blood Gas Hematocrit 45.2 % (42-52); Base Excess ABG 1.2 mmol/L (-2.0-2.0); Blood Gas Allen Test Pos; Blood Gas Sample Type Arterial; HCO3 ABG 24.9 mmol/L (22-26); PO2 ABG 54.6 mmHg (80.0-100.0)
[2020-06-13 05:32] LABS: Blood Gas Operator Identificat HARKR; Blood Gas Sample Site Radial, left; Oxygen Device BIPAP
[2020-06-13 05:36] LABS: Aspartate Amino Transferase 20 U/L (0-40)
[2020-06-13] MEDS: ipratropium-albuterol 3 mL Neb INHALATION ×3 (09:30→20:16)
--- NOTE | 2020-06-13 10:42 | PC.NURSE ---
Shift Summary: Pt has fluctuated between SR and ST throughout shift. MD stations superintendent notified of pt status and increased work of breathing noted by this RN. RN given orders to monitor HR, and notify if ST sustains above normal level or desat of SPO2 sustaining. ST episodes noted with activity/turns, and returns to baseline with rest. RN gave pt IVP morphine once overnight to help control pt pain levels/increased work of breathing. Bipap remained at 100% throughout shift, as any change in positioning or titration of O2 delivery that was made by RT, failed with each attempt. Episodes of desat into low 80% with oral care given by RN within 30 seconds of Bipap being removed from face. senior staff psychologist X4 gave pt bedbath and linen change. Pt desat in lower 80% with small turns during nursing care, and required time to return back to lower 90%. Little response noted when asking pt to follow simple commands of squeezing hands, shaking head yes or no, or gazing towards RN requesting action. One notable response of hand squeeze when asked, but very weak in nature. This RN spoke with family/daughters X3 in depth throughout overnight shift on bases and severity of pt's current health condition. Education reinforced with each phone call to family in the increased O2 delivery patient requires, and the decrease in O2 with very small changes in positioning. RN encouraged family to speak to each other on each of their personal wishes with care advancing forward, and speak with MD in charge of care. Family educated on medications being given after indepth questions asked by RN of aspects in care. RN stressed that currently Bipap is at highest SPO2 setting that is able to be given, and his consistent need for all of 100% to stay in low 90% SPO2. Comfort care was briefly discussed when pt's daughter Ruthann spoke with RN. Family expressed wants that he is to remain a fullcode in the event of need. RN offered family opportunity to facetime pt, but was not completed based on family not requesting of call. Report given to leigha davis RN. Hospitalist on floor at time of shift change and updated in condition overnight. MD verbalized he would speak with family.
[2020-06-13] MEDS: famotidine 20 mg/2 mL INJ IVP ×2 (12:14→21:39)
--- NOTE | 2020-06-13 12:29 | XRR_ITS ---
PROCEDURE INFORMATION: Exam: XR Chest, 1 View Exam date and time: 06/13/2020 12:35 PM Age: 84 years old Clinical indication: Shortness of breath; Additional info: Pna TECHNIQUE: Imaging protocol: XR of the chest Views: 1 view. COMPARISON: CR (CHEST, ) 06/07/2020 7:52 AM FINDINGS: Tubes, catheters and devices: Right jugular approach central venous catheter tip projects over the cavoatrial junction. Lungs: Bilateral pulmonary consolidation appears worsened when compared to the prior study. Pleural space: Unremarkable. No pleural effusion. No pneumothorax. Heart/Mediastinum: Heart size not optimally evaluated with a single AP view of the chest. Bones/joints: Old right humeral fracture. XR/XR chest 1V portable [id number] IMPRESSION: Bilateral pulmonary consolidation appears worsened when compared to the prior study.
[2020-06-13] MEDS: sodium chloride 0.9% 1,000 ML 75 ML IV (13:43)
[2020-06-13] MEDS: succinylcholine 20 mg/mL SDV 10mL 100 MG IVP (17:42)
--- NOTE | 2020-06-13 17:58 | XRR_ITS ---
PROCEDURE INFORMATION: Exam: XR Chest, 1 View Exam date and time: 06/13/2020 5:59 PM Age: 84 years old Clinical indication: Device placement; Ett placement (vent status); Additional info: S/P intubation TECHNIQUE: Imaging protocol: XR of the chest Views: 1 view. COMPARISON: CR (CHEST, ) 06/13/2020 12:43 PM FINDINGS: Tubes, catheters and devices: ET tube tip projects 3.7 cm superior to the dea. Central venous catheter tip projects over the superior vena cava. Lungs: Bilateral pulmonary infiltrates are similar to the prior study. Pleural space: Unremarkable. No pleural effusion. No pneumothorax. Heart/Mediastinum: Unremarkable. No cardiomegaly. Bones/joints: Unremarkable. XR/XR chest 1V portable [id number] IMPRESSION: 1. ET tube tip projects 3.7 cm superior to the dea. 2. Bilateral pulmonary infiltrates are similar to the prior study.
[2020-06-13] MEDS: dexamethasone 4 mg/mL INJ 6 MG IVP (18:16)
--- NOTE | 2020-06-13 18:34 | PM.PN ---
Subjective Subjective: Interval history: failed to tolerate BIPAP he was desaturating significantly on 100 % Oxygen. He was reintubated and put on mechanical ventilation. He has remained afebrile.Other labs and Vitals have been reviewed. Medications: Reviewed: Yes Vitals/I&O/Wt Last Vital Signs Temp 99.1 F 06/13/20 04:00 Pulse 135 H 06/13/20 15:30 Resp 17 06/13/20 18:24 BP 120/86 06/13/20 11:00 Pulse Ox 88 L 06/13/20 15:30 06/13/20 06/13/20 06/13/20 06:59 14:59 22:59 Intake Total 206.733 / 564.733 258 / 258 50.208 / 308.208 Output Total 450 / 1100 Balance -243.267 / -535.267 258 / 258 50.208 / 308.208 Weight last 48 hrs Weight 82.216 g Weight 82.16 kg Physical Exam Narrative: EXAM NARRATIVE: Intubated and sedated.Off sedation GCS :7T Resp: OTHER: B/L Coarse breath sounds, B/L Basal Crackles Cardio: COMMON NORMALS: regular rate, regular rhythm, S1 normal heart sound present, S2 normal heart sound present, No gallops present (Cardio), No murmurs present (Cardio), No rub (Cardio) and Peripheral pulses 2+ throughout RATE: regular rate RHYTHM: regular rhythm HEART SOUNDS: S1 normal heart sound present and S2 normal heart sound present PERIPHERAL PULSES: Peripheral pulses 2+ throughout GI: COMMON NORMALS: Normal to inspection, nondistended, normoactive bowel sounds present, Soft to palpation, non-tender, No hepatosplenomegaly present and no masses AUSCULTATION: Yes normoactive bowel sounds PALPATION: Yes Soft to palpation and Yes No hepatosplenomegaly present RECTAL EXAM: Yes deferred Extremity: COMMON NORMALS: no clubbing, cyanosis or edema and no pedal edema Urinary Catheter Management^: Mondragon: Cath Placed During This Visit: yes Reason for Continuing Indwelling Catheter: Accurate Measurement of Urinary Output in Critically Ill Patients Urinary Catheter Date of Insertion: 06/01/20 Urinary Catheter Time of Insertion: 22:10 Data : 06/13/20 03:30 06/13/20 03:30 A&P Assessment and plan (1) Acute hypoxemic respiratory failure: Status: Acute (2) ARDS (adult respiratory distress syndrome): Status: Acute (3) Encephalopathy: Status: Acute (4) Atrial fibrillation with RVR: Status: Acute (5) Pneumonia: Status: Acute Qualifiers: Laterality: bilateral Lung location: unspecified part of lung Pneumonia type: due to unspecified organism Qualified Code(s): J18.9 - Pneumonia, unspecified organism (6) COVID-19 virus infection: Status: Acute (7) Acute worsening of stage 3 chronic kidney disease: Status: Acute (8) Adult failure to thrive: Status: Acute Acute respiratory failure with hypoxemia & hypercapnia - Intubated on mechanical ventilation on arrival - Extubated but Reintubated on 06/13 -Currently on Mechanical Ventilation. Sepsis with hypotension due to COVID19/ Possible bacterial Pneumonia - Completed Remdesivir x 5 days protocol - Can not entirely rule out superimposed bacterial infection - Continue Zosyn 3.375g IV q8hr and vancomycin pharmacy to dose - Follow up on blood culture x 2 - NGTD - Repeat Blood Culture Ordered on 06/13 - sputum culture - No growth Ac Encephalopathy 2/2 Sespsis/ Hypoxic R/F -Plan as 1 and 2 -A.FIB with RVR :2/2 to sepsis and Hypoxemia On Cardizem Drip. -Switch to PO medications when appropriate. 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
--- NOTE | 2020-06-13 18:45 | PC.NURSE ---
Received report on patient from Kassandra KIRKPATRICK. Assumed care at this time.
--- NOTE | 2020-06-13 20:14 | PC.NURSE ---
pt having freq episodes of hr increasing to 140's-150's (afib)..then decreasing to 100-110.dr zavala did not want placed back on cardizem drip.bp increased near end of shift.dr zavala discussed code status with pt's family.they decided to have pt re-intubated.at 1743 [address] and dr dumont intubated pt with-out difficulty.succ.choline and etomodate given prior to procedure...and fentanyl drip started at 50 mcgs just after intubation.hr and bp decreased to acceptable levels.several attempts to place ng/og tube by rn and dr zavala with-out success.it was noted that tube was notsuccessfully placed with prior intubation either due to esphogeal strictures.radiology called for stat cxr to verify ett placement.bilat breath sounds auscultated after placement.
--- NOTE | 2020-06-13 20:48 | PM.ACPR ---
Acute Procedures Intubation: Time out performed: Yes Sedative: etomidate Mg given: 20 Paralytic: succinylcholine Mg given: 100 Laryngoscope: fiber optic video scope Assist device used: fiber optic device ET tube size: 8 ET tube uncuffed: Yes Tube secured depth (cm): 24 Tube secured location: lips Tube placement confirmation: visualized tube passing through cords, equal breath sounds bilaterally, no breath sounds over epigastrium and color change noted Patient tolerated procedure: well
--- NOTE | 2020-06-13 20:57 | PC.PHAR ---
Vancomycin is resumed at 1250mg IVPB every 24 hours with a trough to be obtained before the fourth dose.
[2020-06-13] MEDS: vancomycin 1,250 MG/250 ML PIGGYBACK 250 MG IV (21:39)
[2020-06-14] VITALS (33 sets, daily range): BP systolic 100–125; BP diastolic 51–75; PULSE 62–83; RESP 15–22; TEMP 36.2–37.2; O2SAT 90–97; BMI 23.7
[2020-06-14 00:45] LABS: Lactate (Lactic Acid level) 1.4 mmol/L (0.5-2.2)
[2020-06-14] MEDS: dexmedetomidine 400 MCG in sodium chloride 0.9% (100 ml) 100 ML 23 MCG IV ×4 (02:31→17:56)
[2020-06-14] MEDS: piperacillin-tazobactam 3.375 GM in sodium chloride 0.9% (plus) 50 ML IV ×3 (03:00→21:56)
[2020-06-14] MEDS: heparin 5,000 unit/mL INJ 1 mL 5000 UNIT SUBCUT ×3 (03:00→17:33)
[2020-06-14] MEDS: sodium chloride 0.9% 1,000 ML 75 ML IV (03:28)
[2020-06-14 04:29] LABS: ABG PCO2 42.2 mmHg (35-45); ABG PH Result 7.34 (7.35-7.45); Arterial Blood Gas Hematocrit 35.7 % (42-52); Blood Gas Allen Test Pos; Blood Gas Operator Identificat CAK; Blood Gas Sample Site Radial, right; Blood Gas Sample Type Arterial; Blood Gas Tidal Volume 0.45; HCO3 ABG 22.7 mmol/L (22-26); Oxygen Device VENT
[2020-06-14 06:30] LABS: Basophils % 0.1 %; Hematocrit 36.4 % (42.0-52.0); Lymphocytes # 0.3 10^3/uL (0.8-4.8); Lymphocytes % 2.1 %; Mean Corpuscular HGB Conc 30.2 g/dL (30.0-36.0); Mean Corpuscular Hemoglobin 28.1 pg (28.0-34.0); Mean Corpuscular Volume 93.1 fL (80-94); Mean Platelet Volume 12.8 fL (7.4-10.4); Monocytes # 0.5 10^3/uL (0.2-0.9); Monocytes % 3.3 %; Neutrophils # 13.63 10^3/uL (1.8-7.7); Neutrophils % 92.8 %; Nucleated Red Blood Cells % 0 %; Platelet Count 143 10^3/cmm (130-400); Red Blood Count 3.91 10^6/uL (4.1-5.3); Red Cell Distribution Width 15.2 % (12.1-15.1); White Blood Count 14.7 10^3/uL (4.0-10.0)
[2020-06-14 06:57] LABS: Alanine Aminotransferase 12 U/L (0-41); Alkaline Phosphatase 96 IU/L (40-130); Anion Gap 18.7 (5-19); Aspartate Amino Transferase 14 U/L (0-40); Carbon Dioxide 23 mmol/L (22-29); Chloride 113 mmol/L (98-107); Globulin 2.8 g/dL (1.3-4.6); Glucose 140 mg/dL (65-115); Magnesium 2.4 mg/dL (1.7-2.3); Osmolality Calculated 338 mOsm/kg (285-295); Potassium 4.7 mmol/L (3.5-5.1); Sodium 150 mmol/L (136-145); Total Bilirubin 0.5 mg/dL (0.15-1.2); Total Protein 4.8 g/dL (6.6-8.7)
[2020-06-14 06:59] LABS: Blood Urea Nitrogen 86 mg/dL (8-23)
[2020-06-14] MEDS: famotidine 20 mg/2 mL INJ IVP ×2 (08:48→21:56)
[2020-06-14] MEDS: dextrose 5%-sod chloride 0.45% 1,000 ML 125 ML IV ×2 (10:25→17:33)
--- NOTE | 2020-06-14 13:41 | PC.SOCIAL ---
Pt currently intubated. IM not discussed at this time. Pt not within two days of DC. IM to be discussed at next appointed time.
--- NOTE | 2020-06-14 13:47 | P.PN_ITS ---
Subjective Subjective: Interval history: is intubated and sedated. Has remained afebrile, with good urine output. His other vitals and labs have been reviewed. Medications: Reviewed: Yes Vitals/I&O/Wt Last Vital Signs Temp 97.7 F 06/14/20 01:00 Pulse 73 06/14/20 07:00 Resp 20 H 06/14/20 10:16 BP 109/59 06/14/20 07:00 Pulse Ox 94 06/14/20 07:00 06/13/20 06/14/20 06/14/20 22:59 06:59 14:59 Intake Total 204.000 / 640.597 6894 / 1566.000 753 / 753 Output Total 1000 / 1000 200 / 1200 0 / 0 Balance -796.000 / -538.000 904 / 366.000 753 / 753 Weight last 48 hrs Weight 74.95 kg Weight 74.95 kg Weight 82.216 g Physical Exam Const: COMMON NORMALS: patient oriented x3 HENMT: COMMON NORMALS: normocephalic and atraumatic HEAD & SCALP: normocephalic and atraumatic Resp: COMMON NORMALS: clear to auscultation bilaterally EFFORT & INSPECTION: Yes symmetric chest movement AUSCULTATION: clear to auscultation bilaterally Cardio: COMMON NORMALS: regular rate, regular rhythm, S1 normal heart sound present, S2 normal heart sound present, No gallops present (Cardio), No murmurs present (Cardio), No rub (Cardio) and Peripheral pulses 2+ throughout RATE: regular rate RHYTHM: regular rhythm HEART SOUNDS: S1 normal heart sound present and S2 normal heart sound present PERIPHERAL PULSES: Peripheral pulses 2+ throughout GI: COMMON NORMALS: Normal to inspection, nondistended, normoactive bowel sounds present, Soft to palpation, non-tender, No hepatosplenomegaly present and no masses AUSCULTATION: Yes normoactive bowel sounds PALPATION: Yes Soft to palpation and Yes No hepatosplenomegaly present RECTAL EXAM: Yes deferred Extremity: COMMON NORMALS: no clubbing, cyanosis or edema and no pedal edema Neuro: COMMON NORMALS: patient oriented x3 Urinary Catheter Management^: Mondragon: Cath Placed During This Visit: yes Reason for Continuing Indwelling Catheter: Accurate Measurement of Urinary Output in Critically Ill Patients Urinary Catheter Date of Insertion: 06/01/20 Urinary Catheter Time of Insertion: 22:10 Data : 06/14/20 14:15 06/14/20 05:15 Micro: Microbiology 06/13/20 00:10 Blood Culture - Preliminary Blood SPECIMEN COLLECTED 06/13/20 23:45 Blood Culture - Preliminary Blood SPECIMEN COLLECTED A&P Assessment and plan (1) Acute hypoxemic respiratory failure: Status: Acute (2) ARDS (adult respiratory distress syndrome): Status: Acute (3) Encephalopathy: Status: Acute (4) Atrial fibrillation with RVR: Status: Acute (5) Hypernatremia: Status: Acute (6) Pneumonia: Status: Acute Qualifiers: Laterality: bilateral Lung location: unspecified part of lung Pneu monia type: due to unspecified organism Qualified Code(s): J18.9 - Pneumonia, unspecified organism (7) COVID-19 virus infection: Status: Acute (8) Acute worsening of stage 3 chronic kidney disease: Status: Acute (9) Adult failure to thrive: Status: Acute Acute respiratory failure with hypoxemia & hypercapnia - Intubated on mechanical ventilation on arrival - Extubated but Reintubated on 06/13 -Currently on Mechanical Ventilation. -Monitor ABG,Xray chest Sepsis with hypotension due to COVID19/ Possible bacterial Pneumonia - Can not entirely rule out superimposed bacterial infection - Completed Remdesivir x 5 days protocol - Dexamethasone stopped on 06/14 - Follow up on blood culture x 2 - NGTD - Repeat Blood Culture Ordered on 06/13 :NTD - sputum culture - No growth - Procal: 0.60 - Lactic acid: 1.4 - vancomycin pharmacy to dose - Zosyn 3.375g IV q8hr Dc on 06/14 - Started on Primax 500 q12 h daily on 06/14 Ac Encephalopathy 2/2 Sespsis/ Hypoxic R/F -Plan as 1 and 2 -A.FIB with RVR :2/2 to sepsis and Hypoxemia - was On Cardizem Drip.Currently rate well controlled. 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 Coding Level of Care Code Acute Weight Inspector for [facility] Fwd Diagnoses Acute hypoxemic respiratory failure J96.01 ARDS (adult respiratory distress syndrome) J80 Encephalopathy G93.40 Atrial fibrillation with RVR I48.91 Hypernatremia E87.0 Pneumonia J18.9 Laterality: bilateral Lung location: unspecified part of lung Pneumonia type: due to unspecified organism COVID-19 virus infection U07.1 Acute worsening of stage 3 chronic kidney disease N18.30 Adult failure to thrive R62.7
[2020-06-14 15:09] LABS: Basophils % 0.1 %; Hemoglobin 10.9 g/dL (11.7-16.6); Lymphocytes # 0.3 10^3/uL (0.8-4.8); Lymphocytes % 2.5 %; Mean Corpuscular HGB Conc 30.3 g/dL (30.0-36.0); Mean Corpuscular Hemoglobin 28.2 pg (28.0-34.0); Mean Corpuscular Volume 93.3 fL (80-94); Mean Platelet Volume 12.7 fL (7.4-10.4); Monocytes # 0.7 10^3/uL (0.2-0.9); Monocytes % 5.3 %; Neutrophils # 12.12 10^3/uL (1.8-7.7); Neutrophils % 90.6 %; Nucleated Red Blood Cells % 0 %; Platelet Count 139 10^3/cmm (130-400); Red Blood Count 3.86 10^6/uL (4.1-5.3); Red Cell Distribution Width 15.3 % (12.1-15.1); White Blood Count 13.4 10^3/uL (4.0-10.0)
[2020-06-14] MEDS: dexamethasone 4 mg/mL INJ 6 MG IVP (17:32)
[2020-06-14 17:48] LABS: Glucose Point of Care 193 mg/dL (70-110)
--- NOTE | 2020-06-14 18:45 | PC.NURSE ---
Received report on patient from Britany KIRKPATRICK. Assumed care at this time.
[2020-06-15] VITALS (41 sets, daily range): BP systolic 81–161; BP diastolic 48–107; PULSE 61–105; RESP 12–20; TEMP 36.5–36.7; O2SAT 80–92
[2020-06-15] MEDS: dexmedetomidine 400 MCG in sodium chloride 0.9% (100 ml) 100 ML 23 MCG IV (00:23)
[2020-06-15] MEDS: dextrose 5%-sod chloride 0.45% 1,000 ML 125 ML IV (02:34)
[2020-06-15 04:53] LABS: Basophils % 0.3 %; Eosinophils % 0.1 %; Hematocrit 35.2 % (42.0-52.0); Hemoglobin 10.6 g/dL (11.7-16.6); Lymphocytes # 0.4 10^3/uL (0.8-4.8); Lymphocytes % 2.9 %; Mean Corpuscular HGB Conc 30.1 g/dL (30.0-36.0); Mean Corpuscular Hemoglobin 27.6 pg (28.0-34.0); Mean Corpuscular Volume 91.7 fL (80-94); Monocytes # 0.5 10^3/uL (0.2-0.9); Monocytes % 4.5 %; Neutrophils # 10.92 10^3/uL (1.8-7.7); Neutrophils % 91.1 %; Nucleated Red Blood Cells % 0 %; Platelet Count 128 10^3/cmm (130-400); Red Blood Count 3.84 10^6/uL (4.1-5.3); Red Cell Distribution Width 14.9 % (12.1-15.1)
[2020-06-15 05:17] LABS: D Dimer 5.73 ug/mIFEU (0-0.59)
[2020-06-15 05:21] LABS: Alanine Aminotransferase 13 U/L (0-41); Alkaline Phosphatase 76 IU/L (40-130); Anion Gap 14.9 (5-19); Aspartate Amino Transferase 11 U/L (0-40); Blood Urea Nitrogen 80 mg/dL (8-23); Calcium 6.9 mg/dL (8.5-10.5); Carbon Dioxide 23 mmol/L (22-29); Chloride 116 mmol/L (98-107); Globulin 2.4 g/dL (1.3-4.6); Glucose 183 mg/dL (65-115); Osmolality Calculated 339 mOsm/kg (285-295); Potassium 3.9 mmol/L (3.5-5.1); Sodium 150 mmol/L (136-145); Total Bilirubin 0.5 mg/dL (0.15-1.2); Total Protein 4.4 g/dL (6.6-8.7)
[2020-06-15] MEDS: dexmedetomidine 400 MCG in sodium chloride 0.9% (100 ml) 100 ML 46 MCG IV (06:53)
[2020-06-15] MEDS: dextrose 5% 1,000 ML 75 ML IV ×2 (10:10→21:53)
[2020-06-15] MEDS: vancomycin 1,250 MG/250 ML PIGGYBACK 250 MG IV (10:10)
[2020-06-15] MEDS: famotidine 20 mg/2 mL INJ IVP ×2 (10:29→21:52)
--- NOTE | 2020-06-15 10:30 | PC.NURSE ---
AM meds late due to excessive phone calls to [facility].
--- NOTE | 2020-06-15 12:17 | PM.PN ---
Subjective Subjective: Interval history: is intubated and sedated.Off sedation his GCS is 10 T. Urine Output : 1300 CC in last 24 H He has remained afebrile, his other vitals and labs have been reviewed. Medications: Reviewed: Yes Vitals/I&O/Wt Last Vital Signs Temp 97.8 F 06/15/20 04:00 Pulse 62 06/15/20 07:36 Resp 18 06/15/20 11:18 BP 135/80 06/15/20 06:00 Pulse Ox 90 06/15/20 07:36 06/14/20 06/15/20 06/15/20 22:59 06:59 14:59 Intake Total 1149.667 / 6784.699 2442.833 / 3318.500 31.433 / 31.433 Output Total 1300 / 1300 0 / 1300 Balance -150.333 / 655.579 0118.833 / 2018.500 31.433 / 31.433 Weight last 48 hrs Weight 74.95 kg Weight 74.95 kg Physical Exam HENMT: COMMON NORMALS: normocephalic and atraumatic HEAD & SCALP: normocephalic and atraumatic Chest: CHEST: Yes Symmetrical chest wall rise Resp: COMMON NORMALS: clear to auscultation bilaterally EFFORT & INSPECTION: Yes symmetric chest movement AUSCULTATION: clear to auscultation bilaterally Cardio: COMMON NORMALS: regular rate, regular rhythm, S1 normal heart sound present, S2 normal heart sound present, No gallops present (Cardio), No murmurs present (Cardio), No rub (Cardio) and Peripheral pulses 2+ throughout RATE: regular rate RHYTHM: regular rhythm HEART SOUNDS: S1 normal heart sound present and S2 normal heart sound present PERIPHERAL PULSES: Peripheral pulses 2+ throughout GI: COMMON NORMALS: Normal to inspection, nondistended, normoactive bowel sounds present, Soft to palpation, non-tender, No hepatosplenomegaly present and no masses AUSCULTATION: Yes normoactive bowel sounds PALPATION: Yes Soft to palpation and Yes No hepatosplenomegaly present RECTAL EXAM: Yes deferred Extremity: COMMON NORMALS: no clubbing, cyanosis or edema and no pedal edema Urinary Catheter Management^: Mondragon: Cath Placed During This Visit: yes Reason for Continuing Indwelling Catheter: Accurate Measurement of Urinary Output in Critically Ill Patients Urinary Catheter Date of Insertion: 06/01/20 Urinary Catheter Time of Insertion: 22:10 Data : 06/15/20 03:25 06/15/20 03:25 Micro: Microbiology 06/14/20 14:45 Urine Culture - Preliminary Urine Catheterized Yeast species 06/13/20 00:10 Blood Culture - Preliminary Blood NEGATIVE TO DATE 06/13/20 23:45 Blood Culture - Preliminary Blood NEGATIVE TO DATE A&P Assessment and plan (1) Acute hypoxemic respiratory failure: Status: Acute (2) ARDS (adult respiratory distress syndrome): Status: Acute (3) Encephalopathy: Status: Acute (4) Atrial fibrillation with RVR: Status: Acute (5) Hypernatremia: Status: Acute (6) Pneumonia: Status: Acute Qualifiers: Laterality: bilateral Lung location: unspecified part of lung Pneumonia type: due to unspecified organism Qualified Code(s): J18.9 - Pneumonia, unspecified organism (7) COVID-19 virus infection: Status: Acute (8) Acute worsening of stage 3 chronic kidney disease: Status: Acute (9) Adult failure to thrive: Status: Acute Acute respiratory failure with hypoxemia & hypercapnia - Intubated on mechanical ventilation on arrival - Extubated but Reintubated on 06/13 -Currently on Mechanical Ventilation. -Monitor ABG,Xray chest Sepsis with hypotension due to COVID19/ Possible bacterial Pneumonia - Can not entirely rule out superimposed bacterial infection - Completed Remdesivir x 5 days protocol - Dexamethasone stopped on 06/14 ( 13 days ) - Started Prednisone 20 mg po daily - Follow up on blood culture x 2 - NGTD - Repeat Blood Culture Ordered on 06/13 :NTD - sputum culture - No growth - Procal: 0.60 - Lactic acid: 1.4 - vancomycin DC on 06/15 -Zosyn 3.375g IV q8hr Dc on 06/14 -Zyvox 600 mg I.V Q12 H Started on 06/15 -Primax 500 q12 h daily ( 06/14 ) Ac Encephalopathy 2/2 Sespsis/ Hypoxic R/F -Plan as 1 and 2 -A.FIB with RVR :2/2 to sepsis and Hypoxemia - was On Cardizem Drip.Currently rate well controlled. 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 - Noted in 2013 - Was not transfused as patient is jehovahs witness and refused - WIll monitor h/h -[id number] mg q12 stopped as H/H was dropping -FOBT -Monitor CBC Additional Medical History - Hypertnesion - Dyslpididemia - Advanced dementia - Obstructive sleep apnea - Large Hiatal Her melvi - Hx of Closed Head injury GI ppx - Pepcid 20 mg IV BID DVT ppx -Heparin 5000 units q8hr -Stopped -SCDs Prognosis : Poor CODE STATUS - FULL CODE Attestations Medical Necessity Statement*: Patient needs to be in hospital for the management r/f 2/2 COVID PNA Coding Level of Care Code Acute 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
[2020-06-15] MEDS: linezolid premix 600 MG/300 ML PREMIX 300 MG IV (16:44)
--- NOTE | 2020-06-15 17:07 | XRR_ITS ---
PROCEDURE INFORMATION: Exam: XR Abdomen, 1 View Exam date and time: 06/15/2020 5:09 PM Age: 84 years old Clinical indication: Device placement; Gi device; Other: Feeding tube placement TECHNIQUE: Imaging protocol: XR of the abdomen. Views: Frontal supine view of the abdomen. 1 View. COMPARISON: CT abdomen pelvis w con* [id number] 03/09/2018 12:18 AM FINDINGS: Tubes, catheters and devices: A feeding tube is present and extends down the right mainstem bronchus into the projection of the right base. It should be removed and reinserted into the esophagus. An endotracheal tube and central venous catheter projects in satisfactory position. Lungs: Bilateral pulmonary infiltrates are present which are similar to old study allowing for differences in positioning. Bones/joints: There is a thoracolumbar scoliosis with degenerative disease.. XR/XR KUB portable [id number] IMPRESSION: The feeding tube extends on the right mainstem bronchus into the right lung base. It needs to be removed and reinserted into the esophagus down to the stomach.
--- NOTE | 2020-06-15 17:59 | PC.NURSE ---
Dobhoff insertion unsuccessful.
[2020-06-15] MEDS: dexmedetomidine 400 MCG in sodium chloride 0.9% (100 ml) 100 ML IV (18:17)
--- NOTE | 2020-06-15 18:59 | PC.NURSE ---
Report given to KAYA Chavez.
--- NOTE | 2020-06-15 18:59 | PC.NURSE ---
Shift summary: Pt remains intubated. FIO2 at 50%. Lungs diminished and coarse. Pt wide awake this am, able to answer yes/no questions with a head nod. Precedex and fentanyl gtt increased for his comfort as he ws biting the ETT. Dr Rausch notified, Versed gtt ordered this afternoon and started at 2mg/hr. Pt's mouth gets very dry and needs frequent oral care to removed dried debris. VSS. Central line in right neck patent with good blood return. Dobhoff insertion attempted unsuccessful. Oliguria , at 50 ml this shift. Hospice called for information. Reported this to daughter Bety, she stated they were not quit ready for that but it is good to get things started. The family is going to discuss things tonight.
[2020-06-16] VITALS (102 sets, daily range): BP systolic 90–127; BP diastolic 53–77; PULSE 67–92; RESP 14–20; TEMP 36.3–36.8; O2SAT 89–94
[2020-06-16] MEDS: dexmedetomidine 400 MCG in sodium chloride 0.9% (100 ml) 100 ML IV ×2 (03:56→12:18)
[2020-06-16] MEDS: linezolid premix 600 MG/300 ML PREMIX 300 MG IV ×2 (04:00→16:16)
[2020-06-16 04:32] LABS: Basophils % 0.1 %; Eosinophils # 0.1 10^3/uL (0.0-0.8); Eosinophils % 0.5 %; Hematocrit 35.1 % (42.0-52.0); Hemoglobin 10.6 g/dL (11.7-16.6); Lymphocytes # 0.5 10^3/uL (0.8-4.8); Lymphocytes % 3.8 %; Mean Corpuscular HGB Conc 30.2 g/dL (30.0-36.0); Mean Corpuscular Hemoglobin 27.7 pg (28.0-34.0); Mean Corpuscular Volume 91.9 fL (80-94); Monocytes # 0.6 10^3/uL (0.2-0.9); Monocytes % 4.4 %; Neutrophils % 89.7 %; Nucleated Red Blood Cells % 0 %; Platelet Count 139 10^3/cmm (130-400); Red Blood Count 3.82 10^6/uL (4.1-5.3); Red Cell Distribution Width 15.1 % (12.1-15.1); White Blood Count 13.9 10^3/uL (4.0-10.0)
[2020-06-16 04:56] LABS: Alanine Aminotransferase 19 U/L (0-41); Alkaline Phosphatase 97 IU/L (40-130); Aspartate Amino Transferase 19 U/L (0-40); Calcium 7.1 mg/dL (8.5-10.5); Carbon Dioxide 21 mmol/L (22-29); Chloride 113 mmol/L (98-107); Globulin 2.7 g/dL (1.3-4.6); Glucose 116 mg/dL (65-115); Osmolality Calculated 332 mOsm/kg (285-295); Sodium 147 mmol/L (136-145); Total Bilirubin 0.5 mg/dL (0.15-1.2); Total Protein 4.7 g/dL (6.6-8.7)
[2020-06-16 05:10] LABS: Blood Urea Nitrogen 87 mg/dL (8-23)
[2020-06-16] MEDS: famotidine 20 mg/2 mL INJ IVP ×2 (08:01→21:30)
[2020-06-16] MEDS: dextrose 5%-sod chloride 0.45% 1,000 ML 125 ML IV (12:18)
--- NOTE | 2020-06-16 12:34 | PC.SOCIAL ---
*IMM UPDATE* Gave pt's , Stefani IMM via phone.
--- NOTE | 2020-06-16 15:10 | PM.PN ---
Subjective Subjective: Interval history: is intubated and sedated.Off sedation GCS is 8T. His vitals and labs have been reviewed. Medications: Reviewed: Yes Vitals/I&O/Wt Last Vital Signs Temp 97.4 F L 06/16/20 00:00 Pulse 70 06/16/20 13:47 Resp 14 06/16/20 13:47 BP 114/65 06/16/20 04:30 Pulse Ox 92 06/16/20 13:47 06/16/20 06/16/20 06/16/20 06:59 14:59 22:59 Intake Total 490.890 / 3595.154 1138.487 / 1138.487 Output Total 50 / 100 1000 / 1000 Balance 440.890 / 3495.154 138.487 / 138.487 Weight last 48 hrs Weight 75.296 kg Physical Exam HENMT: COMMON NORMALS: normocephalic and atraumatic HEAD & SCALP: normocephalic and atraumatic Chest: CHEST: Yes Symmetrical chest wall rise Resp: EFFORT & INSPECTION: Yes symmetric chest movement OTHER: B/L Basal Crackles Present. Cardio: COMMON NORMALS: regular rate, regular rhythm, S1 normal heart sound present, S2 normal heart sound present, No gallops present (Cardio), No murmurs present (Cardio), No rub (Cardio) and Peripheral pulses 2+ throughout RATE: regular rate RHYTHM: regular rhythm HEART SOUNDS: S1 normal heart sound present and S2 normal heart sound present PERIPHERAL PULSES: Peripheral pulses 2+ throughout GI: COMMON NORMALS: Normal to inspection, nondistended, normoactive bowel sounds present, Soft to palpation, non-tender, No hepatosplenomegaly present and no masses AUSCULTATION: Yes normoactive bowel sounds PALPATION: Yes Soft to palpation and Yes No hepatosplenomegaly present RECTAL EXAM: Yes deferred Urinary Catheter Management^: Mondragon: Cath Placed During This Visit: yes Reason for Continuing Indwelling Catheter: Accurate Measurement of Urinary Output in Critically Ill Patients Urinary Catheter Date of Insertion: 06/01/20 Urinary Catheter Time of Insertion: 22:10 Data : 06/16/20 02:30 06/16/20 15:20 Micro: Microbiology 06/14/20 14:45 Urine Culture - Preliminary Urine Catheterized Yeast species A&P Assessment and plan (1) Acute hypoxemic respiratory failure: Status: Acute (2) ARDS (adult respiratory distress syndrome): Status: Acute (3) Encephalopathy: Status: Acute (4) Atrial fibrillation with RVR: Status: Acute (5) Hypernatremia: Status: Acute (6) Pneumonia: Status: Acute Qualifiers: Laterality: bilateral Lung location: unspecified part of lung Pneumonia type: due to unspecified organism Qualified Code(s): J18.9 - Pneumonia, unspecified organism (7) COVID-19 virus infection: Status: Acute (8) Acute worsening of stage 3 chronic kidney disease: Status: Acute (9) Adult failure to thrive: Status: Acute Acute respiratory failure with hypoxemia & hypercapnia - Intubated on mechanical ventilation on arrival - Extubated but Reintubated on 06/13 -Currently on Mechanical Ventilation. -Monitor ABG,Xray chest Sepsis with hypotension due to COVID19/ Possible bacterial Pneumonia - Can not entirely rule out superimposed bacterial infection - Completed Remdesivir x 5 days protocol - Dexamethasone stopped on 06/14 ( 13 days ) - Started Prednisone 20 mg po daily - Follow up on blood culture x 2 - NGTD - Repeat Blood Culture Ordered on 06/13 :NTD - sputum culture - No growth - Urine Culture: Yeast (06/14 ) Likely contaminant - Procal: 0.60 - Lactic acid: 1.4 - vancomycin DC on 06/15 -Zosyn 3.375g IV q8hr Dc on 06/14 -Zyvox 600 mg I.V Q12 H Started on 06/15 -Primax 500 q12 h daily ( 06/14 ) -Fluconazole 200 mg I.V Q24 H (06/15 ) Ac Encephalopathy 2/2 Sespsis/ Hypoxic R/F -Plan as 1 and 2 -A.FIB with RVR :2/2 to sepsis and Hypoxemia - was On Cardizem Drip.Currently rate well controlled. 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 - Noted in 2013 - Was not transfused as patient is jehovahs witness and refused - WIll monitor h/h -[id number] mg q12 stopped as H/H was dropping -FOBT -Monitor CBC Additional Medical History - Hypertnesion - Dyslpididemia - Advanced dementia - Obstructive sleep apnea - Large Hiatal Her melvi - Hx of Closed Head injury GI ppx - Pepcid 20 mg IV BID DVT ppx -Heparin 5000 units q12 hr -SCDs Prognosis : Poor CODE STATUS - FULL CODE Attestations Medical Necessity Statement*: Patient needs to be in hospital for the management of R/F 2/2 COVID PNA Coding Level of Care Code Acute 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
[2020-06-16 16:58] LABS: Anion Gap 11.9 (5-19); Carbon Dioxide 22 mmol/L (22-29); Chloride 114 mmol/L (98-107); Glucose 140 mg/dL (65-115); Osmolality Calculated 326 mOsm/kg (285-295); Potassium 3.9 mmol/L (3.5-5.1); Sodium 144 mmol/L (136-145)
[2020-06-16 17:06] LABS: Blood Urea Nitrogen 84 mg/dL (8-23)
--- NOTE | 2020-06-16 18:45 | PC.NURSE ---
Received bedside report on patient from Britany KIRKPATRICK. The only drip patient is on at this time is Levophed at 1 mcg/hr. Patient is currently on a sedation vacation. Patient opens his eyes when spoken too. Dr. Rausch notifed that patient is responsive.
--- NOTE | 2020-06-16 20:00 | PC.NURSE ---
called and facetimed patient. Elena was with her mother.
[2020-06-16] MEDS: AA-Dex 5%-20% w/Lytes 1,000 ML 83 ML IV (20:21)
[2020-06-16] MEDS: dextrose 5%-sod chloride 0.45% 1,000 ML 75 ML IV (21:15)
[2020-06-16] MEDS: heparin 5,000 unit/mL INJ 1 mL 5000 UNIT IVP (21:30)
[2020-06-16] MEDS: fluconazole premix 200 MG/100 ML PREMIX 100 MG IV (23:51)
[2020-06-17] VITALS (106 sets, daily range): BP systolic 79–120; BP diastolic 41–89; PULSE 71–106; RESP 12–24; TEMP 35.7–36.5; O2SAT 80–99; BMI 23.8
[2020-06-17 04:19] LABS: Basophils % 0.2 %; Eosinophils # 0.3 10^3/uL (0.0-0.8); Eosinophils % 3.5 %; Hematocrit 32.2 % (42.0-52.0); Hemoglobin 9.8 g/dL (11.7-16.6); Lymphocytes # 0.3 10^3/uL (0.8-4.8); Lymphocytes % 2.9 %; Mean Corpuscular HGB Conc 30.4 g/dL (30.0-36.0); Mean Corpuscular Hemoglobin 28.1 pg (28.0-34.0); Mean Corpuscular Volume 92.3 fL (80-94); Mean Platelet Volume 12.7 fL (7.4-10.4); Monocytes # 0.3 10^3/uL (0.2-0.9); Monocytes % 2.9 %; Neutrophils # 8.48 10^3/uL (1.8-7.7); Neutrophils % 87.8 %; Nucleated Red Blood Cells % 0 %; Platelet Count 98 10^3/cmm (130-400); Red Blood Count 3.49 10^6/uL (4.1-5.3); Red Cell Distribution Width 14.9 % (12.1-15.1); White Blood Count 9.7 10^3/uL (4.0-10.0)
[2020-06-17] MEDS: linezolid premix 600 MG/300 ML PREMIX 300 MG IV ×2 (04:47→15:40)
[2020-06-17] MEDS: dextrose 5%-sod chloride 0.45% 1,000 ML 75 ML IV ×2 (04:47→23:28)
[2020-06-17 04:49] LABS: Alanine Aminotransferase 13 U/L (0-41); Albumin Level 1.8 g/dL (3.5-5.2); Alkaline Phosphatase 98 IU/L (40-130); Anion Gap 13.6 (5-19); Aspartate Amino Transferase 10 U/L (0-40); Blood Urea Nitrogen 71 mg/dL (8-23); Carbon Dioxide 22 mmol/L (22-29); Chloride 113 mmol/L (98-107); Globulin 1.9 g/dL (1.3-4.6); Glucose 235 mg/dL (65-115); Osmolality Calculated 328 mOsm/kg (285-295); Potassium 3.6 mmol/L (3.5-5.1); Sodium 145 mmol/L (136-145); Total Bilirubin 0.3 mg/dL (0.15-1.2); Total Protein 3.7 g/dL (6.6-8.7)
[2020-06-17] MEDS: famotidine 20 mg/2 mL INJ IVP ×2 (08:33→21:04)
[2020-06-17] MEDS: heparin 5,000 unit/mL INJ 1 mL 5000 UNIT IVP (08:33)
[2020-06-17 09:34] LABS: ABG PCO2 49.7 mmHg (35-45); ABG PH Result 7.25 (7.35-7.45); Arterial Blood Gas Hematocrit 34.1 % (42-52); Base Excess ABG -5.4 mmol/L (-2.0-2.0); Blood Gas Allen Test Pos; Blood Gas Operator Identificat CAK; Blood Gas Sample Site Radial, left; Blood Gas Sample Type Arterial; Carboxyhemoglobin 1.5 %THgb (0.4-20.1); HCO3 ABG 21.9 mmol/L (22-26); HGB O2 Sat 77.7 % (95-100); Ionized Calcium Level - ABG 1.2 mmol/L (1.1-1.4); Methemoglobin 0.9 % (0.4-1.5); Oxygen Device VENT; Oxygen Saturation ABG 79.6; PO2 ABG 42.4 mmHg (80.0-100.0); Potassium Level - ABG 3.6 mmol/L (3.5-5.0); Total Hemoglobin 11.1 g/dL (14-18)
[2020-06-17 09:35] LABS: Alveolar-Arterial Oxygen Gradi 33.1 mmHg (5-10); Blood Gas Tidal Volume 0.45
--- NOTE | 2020-06-17 10:58 | PC.RESP ---
ABG DONE AND REPORTED DR. MALDONADO FIO2 INCREASED ONLY.
[2020-06-17] MEDS: dexmedetomidine 400 MCG in sodium chloride 0.9% (100 ml) 100 ML IV (11:24)
[2020-06-17] MEDS: AA-Dex 5%-20% w/Lytes 1,000 ML 83 ML IV (12:08)
--- NOTE | 2020-06-17 13:09 | PM.PN ---
Subjective Subjective: Interval history: remain intubated and sedated and on mechanical ventilation.Off sedation his GCS is 8T. His Vitals,labs,ABG has been reviewed. Vitals/I&O/Wt Last Vital Signs Temp 97.2 F L 06/17/20 12:00 Pulse 85 06/17/20 12:00 Resp 13 06/17/20 12:00 BP 103/59 06/17/20 12:00 Pulse Ox 88 L 06/17/20 12:00 06/16/20 06/17/20 06/17/20 22:59 06:59 14:59 Intake Total 1783.503 / 2921.990 799 / 3720.990 1474.29 / 1474.29 Output Total 1500 / 2500 1900 / 4400 Balance 283.503 / 421.990 -1101 / -054.836 1123.29 / 1474.29 Weight last 48 hrs Weight 75.296 kg Weight 75.296 kg Physical Exam Narrative: EXAM NARRATIVE: Intubated and sedated and on mechanical ventilation.Off sedation his GCS is 8T HENMT: COMMON NORMALS: normocephalic and atraumatic HEAD & SCALP: normocephalic and atraumatic Chest: COMMONS NORMALS: normal palpation of entire chest wall Resp: OTHER: B/L Coarse breath sound present, with B/L Basal crackles. Cardio: COMMON NORMALS: regular rate, regular rhythm, S1 normal heart sound present, S2 normal heart sound present, No gallops present (Cardio), No murmurs present (Cardio), No rub (Cardio) and Peripheral pulses 2+ throughout RATE: regular rate RHYTHM: regular rhythm HEART SOUNDS: S1 normal heart sound present and S2 normal heart sound present PERIPHERAL PULSES: Peripheral pulses 2+ throughout GI: COMMON NORMALS: Normal to inspection, nondistended, normoactive bowel sounds present, Soft to palpation, non-tender, No hepatosplenomegaly present and no masses AUSCULTATION: Yes normoactive bowel sounds PALPATION: Yes Soft to palpation and Yes No hepatosplenomegaly present RECTAL EXAM: Yes deferred Extremity: COMMON NORMALS: no clubbing, cyanosis or edema and no pedal edema Urinary Catheter Management^: Mondragon: Cath Placed During This Visit: yes Reason for Continuing Indwelling Catheter: Accurate Measurement of Urinary Output in Critically Ill Patients Urinary Catheter Date of Insertion: 06/01/20 Urinary Catheter Time of Insertion: 22:10 Data : 06/17/20 03:30 06/17/20 03:30 Micro: Microbiology 06/14/20 14:45 Urine Culture - Preliminary Urine Catheterized Yeast species A&P Assessment and plan (1) Acute hypoxemic respiratory failure: Status: Acute (2) ARDS (adult respiratory distress syndrome): Status: Acute (3) Encephalopathy: Status: Acute (4) Atrial fibrillation with RVR: Status: Acute (5) Hypernatremia: Status: Acute (6) Pneumonia: Status: Acute Qualifiers: Laterality: bilateral Lung location: unspecified part of lung Pneumonia type: due to unspecified organism Qualified Code(s): J18.9 - Pneumonia, unspecified organism (7) COVID-19 virus infection: Status: Acute (8) Acute worsening of stage 3 chronic kidney disease: Status: Acute (9) Adult failure to thrive: Status: Acute Acute respiratory failure with hypoxemia & hypercapnia - Intubated on mechanical ventilation on arrival - Extubated but Reintubated on 06/13 -Currently on Mechanical Ventilation. -ABG: Ph: 7.21, PCO2: 57, PO2: 77, FIO2: 70 % P/F:77/0.7 -Xray chest : Bilateral pulmonary consolidation appears worsened when compared to the prior study. Sepsis with hypotension due to COVID19/ Possible bacterial Pneumonia - Can not entirely rule out superimposed bacterial infection - Completed Remdesivir x 5 days protocol - Dexamethasone stopped on 06/14 ( 13 days ) - Started Prednisone 20 mg po daily - Follow up on blood culture x 2 - NGTD - Repeat Blood Culture Ordered on 06/13 :NTD - sputum culture - No growth - Urine Culture: Abeba albican (06/14 ) Likely contaminant - Procal: 0.60 - Lactic acid: 1.4 - Vancomycin DC on 06/15 -Zosyn 3.375g IV q8hr Dc on 06/14 -Zyvox 600 mg I.V Q12 H Started on 06/15 -Primax 500 q12 h daily ( 06/14 ) -Fluconazole 200 mg I.V Q24 H (06/15 ) Ac Encephalopathy 2/2 Sespsis/ Hypoxic R/F -Plan as 1 and 2 -A.FIB with RVR :2/2 to sepsis and Hypoxemia - was On Cardizem Drip.Currently rate well controlled. 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 - Noted in 2013 - Was not transfused as patient is jehovahs witness and refused - WIll monitor h/h -[id number] mg q12 stopped as H/H was dropping -FOBT -Monitor CBC Additional Medical History - Hypertnesion - Dyslpididemia - Advanced dementia - Obstructive sleep apnea - Large Hiatal Her melvi - Hx of Closed Head injury GI ppx - Pepcid 20 mg IV BID DVT ppx -Heparin 5000 units q12 hr -SCDs Nutrition: TPN Prognosis : Poor CODE STATUS - FULL CODE Attestations Medical Necessity Statement*: Patient needs to be in hospital for the management of R/F 2/2 COVID PNA Coding Level of Care Code Acute 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
[2020-06-17 14:03] LABS: Creatinine Urine, Random 38 mg/dL (39-259); Urine Random Sodium 49 mmol/L
[2020-06-17 15:48] LABS: ABG PCO2 57.3 mmHg (35-45); ABG PH Result 7.21 (7.35-7.45); Arterial Blood Gas Hematocrit 34.1 % (42-52); Base Excess ABG -5.7 mmol/L (-2.0-2.0); Blood Gas Allen Test Pos; Blood Gas Operator Identificat CAK; Blood Gas Sample Site Radial, left; Blood Gas Sample Type Arterial; Blood Gas Tidal Volume 0.45; HCO3 ABG 22.7 mmol/L (22-26); Oxygen Device VENT; PO2 ABG 77.6 mmHg (80.0-100.0)
--- NOTE | 2020-06-17 19:23 | PC.NURSE ---
Patient's family called today requesting to facetime so they could speak to the patient. Nurse explained ventilator and sedation unable to speak. Nurse offered to still face time so they could see the patient. Family declined.
[2020-06-17] MEDS: fluconazole premix 200 MG/100 ML PREMIX 100 MG IV (21:04)
[2020-06-17] MEDS: heparin 5,000 unit/mL INJ 1 mL 5000 UNIT SUBCUT (21:22)
[2020-06-17] MEDS: dexmedetomidine 400 MCG in sodium chloride 0.9% (100 ml) 100 ML 11.5 MCG IV (22:25)
[2020-06-18] VITALS (107 sets, daily range): BP systolic 74–140; BP diastolic 42–80; PULSE 71–90; RESP 14–21; TEMP 34.7–37; O2SAT 89–100
[2020-06-18] MEDS: linezolid premix 600 MG/300 ML PREMIX 300 MG IV ×2 (03:50→15:42)
[2020-06-18 04:52] LABS: Alveolar-Arterial Oxygen Gradi 27.7 mmHg (5-10); Arterial Blood Gas Hematocrit 33.8 % (42-52); Base Excess ABG -7.2 mmol/L (-2.0-2.0); Blood Gas Allen Test Pos; Blood Gas Operator Identificat ED; Blood Gas Sample Site Radial, left; Blood Gas Sample Type Arterial; Carboxyhemoglobin 1.2 %THgb (0.4-20.1); HCO3 ABG 22.2 mmol/L (22-26); HGB O2 Sat 90.6 % (95-100); Ionized Calcium Level - ABG 1.2 mmol/L (1.1-1.4); Methemoglobin 0.8 % (0.4-1.5); Oxygen Device VENT; Oxygen Saturation ABG 92.4; PO2 ABG 62.6 mmHg (80.0-100.0); Potassium Level - ABG 3.6 mmol/L (3.5-5.0)
[2020-06-18 04:54] LABS: ABG PCO2 64.4 mmHg (35-45); ABG PH Result 7.15 (7.35-7.45)
--- NOTE | 2020-06-18 05:11 | XR_ITS ---
WS: [id number] Portable AP semiupright chest, 06/18/2020 Clinical Data: worsening respiratory acidosis Comparison: Portable chest, 06/13/2020. Findings: Bilateral interstitial opacities remain the same. The heart size is at the upper limits of normal. The endotracheal tube and right internal jugular venous catheter remain in good position. The re are monitor leads on the chest wall. 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 XR/XR chest 1V portable [id number] Impression: 1. No change in endotracheal tube and right internal jugular venous catheter. 2. No change in bilateral interstitial opacities.
[2020-06-18] MEDS: AA-Dex 5%-20% w/Lytes 1,000 ML 83 ML IV ×2 (06:37→21:59)
--- NOTE | 2020-06-18 07:47 | PC.NURSE ---
Pt's temp at 0600 noted to be 95 axillary. Mak rivera applied. Will notify
[2020-06-18] MEDS: heparin 5,000 unit/mL INJ 1 mL 5000 UNIT SUBCUT ×2 (08:36→21:55)
[2020-06-18] MEDS: dexmedetomidine 400 MCG in sodium chloride 0.9% (100 ml) 100 ML 16.1 MCG IV ×2 (08:37→16:02)
[2020-06-18] MEDS: famotidine 20 mg/2 mL INJ IVP (08:37)
[2020-06-18 08:46] LABS: Arterial Blood Gas Hematocrit 36.3 % (42-52); Base Excess ABG -7.1 mmol/L (-2.0-2.0); Blood Gas Allen Test Pos; Blood Gas Sample Site Radial, left; Blood Gas Sample Type Arterial; Oxygen Device VENT; PO2 ABG 66.6 mmHg (80.0-100.0)
[2020-06-18 08:47] LABS: ABG PH Result 7.17 (7.35-7.45)
[2020-06-18 08:48] LABS: ABG PCO2 60.6 mmHg (35-45)
[2020-06-18 09:03] LABS: Basophils % 0.2 %; Eosinophils # 0.3 10^3/uL (0.0-0.8); Eosinophils % 2.2 %; Hematocrit 35.5 % (42.0-52.0); Hemoglobin 10.6 g/dL (11.7-16.6); Lymphocytes # 0.6 10^3/uL (0.8-4.8); Lymphocytes % 3.8 %; Mean Corpuscular HGB Conc 29.9 g/dL (30.0-36.0); Mean Corpuscular Hemoglobin 27.8 pg (28.0-34.0); Mean Corpuscular Volume 93.2 fL (80-94); Mean Platelet Volume 12.7 fL (7.4-10.4); Monocytes # 0.4 10^3/uL (0.2-0.9); Neutrophils # 12.72 10^3/uL (1.8-7.7); Nucleated Red Blood Cells % 0 %; Platelet Count 108 10^3/cmm (130-400); Red Blood Count 3.81 10^6/uL (4.1-5.3); Red Cell Distribution Width 15.1 % (12.1-15.1); White Blood Count 14.5 10^3/uL (4.0-10.0)
[2020-06-18 09:37] LABS: Alanine Aminotransferase 11 U/L (0-41); Albumin Level 1.8 g/dL (3.5-5.2); Alkaline Phosphatase 120 IU/L (40-130); Anion Gap 10.7 (5-19); Aspartate Amino Transferase 12 U/L (0-40); Blood Urea Nitrogen 61 mg/dL (8-23); Calcium 7.5 mg/dL (8.5-10.5); Carbon Dioxide 23 mmol/L (22-29); Chloride 108 mmol/L (98-107); Globulin 2.3 g/dL (1.3-4.6); Glucose 208 mg/dL (65-115); Magnesium 1.9 mg/dL (1.7-2.3); Osmolality Calculated 309 mOsm/kg (285-295); Potassium 3.7 mmol/L (3.5-5.1); Sodium 138 mmol/L (136-145); Total Bilirubin 0.3 mg/dL (0.15-1.2); Total Protein 4.1 g/dL (6.6-8.7)
[2020-06-18 11:04] LABS: Glucose Point of Care 173 mg/dL (70-110)
[2020-06-18 11:06] LABS: Glucose Point of Care 197 mg/dL (70-110)
--- NOTE | 2020-06-18 14:21 | P.PN_ITS ---
Subjective Subjective: Interval history: Hospital course noted. Patient currently sedated, intubated on fentanyl, Precedex, propofol. Early in the morning patient was hypothermic and needed bear hugger. Also on Levophed to maintain mean around 60. Currently mean 61 with temperature 98.4 off bear hugger. Medications: Reviewed: Yes Vitals/I&O/Wt Last Vital Signs Temp 98.6 F 06/18/20 13:05 Pulse 90 06/18/20 14:00 Resp 20 H 06/18/20 11:19 BP 96/43 06/18/20 14:00 Pulse Ox 93 06/18/20 14:00 06/17/20 06/18/20 06/18/20 22:59 06:59 14:59 Intake Total 1553.452 / 3127.742 1813.708 / 4941.450 262.655 / 262.655 Output Total 2900 / 2900 825 / 3725 350 / 350 Balance -1346.548 / 227.742 988.708 / 1216.450 -87.345 / -87.345 Weight last 48 hrs Weight 79.061 kg Weight 75.296 kg Physical Exam Narrative: EXAM NARRATIVE: General: Intubated, sedated. HEENT: PERRLA, pupils bilaterally equal and reactive Chest: Bilateral coarse crackles present all over the lungs, bilateral rhonchi present. CVS: S1-S2 regular, no murmurs, no tachycardia, no gallops, no rubs Abdomen: Soft, nontender, no organomegaly, bowel sounds present Neuro: Sedated. Urinary Catheter Management^: Mondragon: Cath Placed During This Visit: yes Reason for Continuing Indwelling Catheter: Accurate Measurement of Urinary Output in Critically Ill Patients Urinary Catheter Date of Insertion: 06/01/20 Urinary Catheter Time of Insertion: 22:10 Data : 06/18/20 08:05 06/18/20 08:05 Micro: Microbiology 06/14/20 14:45 Urine Culture - Final Urine Catheterized Abeba albicans A&P Assessment and plan (1) Sepsis associated hypotension: Status: Acute (2) ARDS (adult respiratory distress syndrome): Status: Acute (3) Encephalopathy: Status: Acute (4) Pneumonia: Status: Acute Qualifiers: Laterality: bilateral Lung location: unspecified part of lung Pneumonia type: due to unspecified organism Qualified Code(s): J18.9 - Pneumonia, unspecified organism (5) COVID-19 virus infection: Status: Acute (6) Acute worsening of stage 3 chronic kidney disease: Status: Acute (7) Adult failure to thrive: Status: Acute (8) Hypernatremia: Status: Acute (9) Atrial fibrillation with RVR: Status: Acute ARDS with septic shock because of COVID-19 pneumonia with possible superadded bacterial infection: Second intubation with reintubation on June 13. ABG noted. Keep sedated with fentanyl propofol and Precedex. Patient requiring Levophed. Keep mean arterial pressure over 65. Currently patient is on linezolid, imipenem, fluconazole. Patient has leukocytosis, was hypothermic in morning. Check blood culture, sputum culture, MRSA swab, procalcitonin, Fungitell, LDH, proBNP. For now continue with current treatment. We will try to de-escalate within next 24 to 48 hours depending on clinical picture and culture results. Patient does not have an NG tube. Switch oral prednisone to IV. Urine culture growing Abeba albicans. Continue with Diflucan. Last blood culture from June 13 normal, sputum culture from June 02 within normal limits. -A.FIB with RVR :2/2 to sepsis and Hypoxemia Rate controlled for now. Continue telemetry. - Hypovolemic Hypernatremia: Resolved. Continue to monitor daily. Stop D5 half NS for now. Patient is mildly fluid overloaded. Acute on chronic stage 2-3 kidney failure - Likely 2/2 sepsis /ATN 2/2 obstructive uropathy Baseline creatinine ranging from 1.2-1.4. Current creatinine today 1.6. Continue to monitor renal functions daily. 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 Start patient on Protonix 40 mg IV twice daily. We will avoid full dose anticoagulation for now. Continue with heparin 5000 every 12. Additional Medical History - Hypertnesion - Dyslpididemia - Advanced dementia - Obstructive sleep apnea - Large Hiatal Her melvi - Hx of Closed Head injury Nutrition: Continue with TPN. We will try to get an NG tube for taking start vo miting. Stop TPN. Heparin for DVT prophylaxis. Protonix DVT prophylaxis. Severely guarded prognosis. Had a detailed discussion with patient's Ms. Ko regarding poor prognosis given the fact that patient is intubated second time in last 14 days with advanced age and multiple comorbidities. States she will discuss with the family regarding further goals of care. Prognosis : Poor CODE STATUS - FULL CODE Attestations Medical Necessity Statement*: Requires further hospitalization for management of ARDS with septic shock in setting of COVID-19 pneumonia and superadded bacterial infection. Critical Care Time: Critical Care Time (min): 80 Coding Level of Care Code Acute Foot Orthopedist for [facility] Fwd Diagnoses Sepsis associated hypotension A41.9; I95.9 ARDS (adult respiratory distress syndrome) J80 Encephalopathy G93.40 Pneumonia J18.9 Laterality: bilateral Lung location: unspecified part of lung Pneumonia type: due to unspecified organism COVID-19 virus infection U07.1 Acute worsening of stage 3 chronic kidney disease N18.30 Adult failure to thrive R62.7 Hypernatremia E87.0 Atrial fibrillation with RVR I48.91
[2020-06-18] MEDS: FUROsemide 10 mg/mL SDV 4mL 40 MG IVP (14:31)
--- NOTE | 2020-06-18 14:56 | PC.SOCIAL ---
*IMM* Updated. Patient not discharging in the next day or two. Still unwell.
[2020-06-18] MEDS: dexamethasone 4 mg/mL INJ 6 MG IVP (15:42)
[2020-06-18] MEDS: pantoprazole 40 mg SDV IV (15:42)
--- NOTE | 2020-06-18 16:47 | PM.CONSULT ---
Providers/Reason For Consult Consulting Physican/Specialty*: Pulmonary and critical care medicine Reason for Consult*: Multiorgan dysfunction from COVID-19 Attending Physician: Nakul Montana MD Primary Care Provider: Roland Pinto DO History of Present Illness History of Present Illness Gavin Ortiz is a 84 year old male who is admitted to the hospital since June 02 with COVID-19 pneumonia, ARDS requiring intubation and mechanical ventilation. The patient has an extensive past medical history. According to the medical record it appears that the patient has dementia. He had also suffered head trauma. He has obstructive sleep apnea, hypertension stage III CKD and the patient is a [employer]. The patient presented to the emergency department on June 01, hypoxic, delirious. Apparently, the patient was DNI status however the family decided to revoke that and the patient got intubated on June 02 for acute hypoxic respiratory failure. The patient received remdesivir, dexamethasone and empiric antibiotic therapy. The patient required vasopressor therapy following intubation. The patient was extubated on June 10 however he continued to be delirious. Patient at that point was managed with noninvasive positive pressure ventilation using an FiO2 of 80% and him saturating between 85 to 89%. The patient was intubated again on June 13. The patient has been receiving vancomycin till June 15 which was then changed to linezolid. The patient initially received Zosyn and is currently on Primaxin. The patient is also on fluconazole. He has completed remdesivir and dexamethasone. Currently the patient is back on dexamethasone. The patient is on TPN as an NG tube could not be introduced. His WBC count today is 14.5 which is jumped from 9.7 yesterday. Patient is mildly anemic with hemoglobin of 10.6. His platelet count is 108,000. Overnight the patient was asynchronous with the vent and his sedation was increased. His last blood gas this morning shows a pH of 7.17, PCO2 of 60 and PO2 of 66 on 60% oxygen. Creatinine is mildly elevated and coming down. All his microbiology studies have been negative so far. Chest x-ray obtained today revealed diffuse bilateral infiltrate. The patient is getting diuresed. Review of Systems Narrative: Unable to obtain Meds/Allergies Home Medications and Allergies Home Medications Medication Instructions Recorded Confirmed Last Taken Type Adult Multivitamin Gummies 200 mcg PO DAILY@0900 03/02/20 06/01/20 Unknown History Neuriva 1 tab PO DAILY 03/02/20 06/01/20 03/01/20 History Zofran 1 tab PO PRN 03/02/20 06/01/20 Unknown History alprazolam 0.5 mg PO BID PRN 03/02/20 06/01/20 Unknown History aspirin 81 mg PO DAILY 03/02/20 06/01/20 03/01/20 History ferrous sulfate [iron] 325 mg PO DAILY 03/02/20 06/01/20 03/01/20 History hydrocodone-acetaminophen 1 tab PO Q4H PRN 03/02/20 06/01/20 06/01/20 History pantoprazole 40 mg PO PRN 03/02/20 06/01/20 Unknown History finasteride 5 mg PO DAILY 06/01/20 06/01/20 Unknown History ibuprofen 200 mg PO Q6H PRN 06/01/20 06/01/20 06/01/20 History simvastatin 20 mg PO DAILY 06/01/20 06/01/20 Unknown History Allergies Allergy/AdvReac Type Severity Reaction Status Date / Time No Known Allergies Allergy Verified 03/02/20 12:54 Current Medications Current Medications Generic Name Dose Route Start Last Admin Trade Name Freq PRN Reason Stop Dose Admin Albuterol/Ipratropium 3 ml 06/02/20 02:04 06/13/20 20:16 Ipratropium-Albuterol 3 Ml Neb INHALATION 3 ml Q4H PRN Administration SHORTNESS OF BREATH Dexamethasone 6 mg 06/18/20 14:45 06/18/20 15:42 Dexamethasone 4 Mg/Ml Inj IVP 6 mg Q24H MIHAELA Administration Finasteride 5 mg 06/02/20 09:00 06/13/20 09:57 Finasteride 5 Mg Tablet PO Not Given DAILY MIHAELA Heparin Sodium (Beef Lung) 5,000 unit 06/17/20 21:10 06/18/20 08:36 Heparin 5,000 Unit/Ml Inj 1 Ml SUBCUT 5,000 unit Q12H MIHAELA Administration Dexmedetomidine HCl 400 mcg/ 104 mls @ 0 mls/hr 06/01/20 21:30 06/18/20 16:02 Sodium Chloride IV 0.7 mcg/kg/hr .Q0M MIHAELA 16.1 mls/hr Administration Protocol Per Protocol Norepinephrine Bitartrate 4 mg 254 mls @ 0 mls/hr 06/01/20 23:00 06/18/20 15:32 / Dextrose IV 8 mcg /hr .Q0M MIHAELA 0.5 mls/hr Titration Protocol Per Protocol Fentanyl 1,000 mcg/ Sodium 100 mls @ 0 mls/hr 06/06/20 02:00 06/18/20 13:59 Chloride IV 75 mcg/hr .Q0M MIHAELA 7.5 mls/hr Administration Protocol Per Protocol Diltiazem HCl 125 mg/ Sodium 125 mls @ 0 mls/hr 06/11/20 15:15 06/12/20 05:00 Chloride IV 0 mg/hr .Q0M MIHAELA 0 mls/hr Titration Protocol Per Protocol Imipenem/Cilastatin Sodium 250 100 mls @ 200 mls/hr 06/14/20 22:15 06/18/20 15:43 mg/ Sodium Chloride IV 200 mls/hr Q6H MIHAELA Administration Protocol Midazolam HCl 100 mg/ Sodium 100 mls @ 0 mls/hr 06/15/20 13:45 06/16/20 19:15 Chloride IV 2 mg/hr .Q0M MIHAELA 2 mls/hr Titration Protocol Per Protocol Linezolid 600 mg in 300 mls @ 300 mls/hr 06/15/20 16:00 06/18/20 15:42 Zyvox Premix IV 300 mls/hr Q12H MIHAELA Administration Protocol Amino Acids/Electrolytes 1,000 mls @ 0 mls/hr 06/16/20 20:00 06/18/20 06:37 Clinimix E 5%-20% IV 83 mls/hr .Q0M MIHAELA Administration Protocol Per Protocol Fluconazole 200 mg in 100 mls @ 100 mls/hr 06/16/20 20:30 06/17/20 22:30 Diflucan Premix IV Infused Q24H MIHAELA Infusion Insulin Aspart 0 unit 06/18/20 06:00 06/18/20 11:55 Insulin Aspart 100 Unit/1 Ml SUBCUT 8 unit Q6H MIHAELA Administration Protocol Pantoprazole Sodium 40 mg 06/18/20 15:30 06/18/20 15:42 Pantoprazole 40 Mg Sdv IV 40 mg Q24H MIHAELA Administration PFSH Acute PFSH: Medical History Advanced dementia Chronic kidney disease, stage 3 Closed head injury H/O: GI bleed Surgical History History of esophagogastroduodenoscopy (EGD) History of nephrectomy Social History Smoking and tobacco status: unknown if ever smoked Alcohol intake: unknown Substance/Drug Use: unknown Vitals/I&O/Wt Last Vital Signs Temp 97.7 F 06/18/20 15:00 Pulse 87 06/18/20 16:00 Resp 20 H 06/18/20 11:19 BP 98/60 06/18/20 16:00 Pulse Ox 95 06/18/20 16:00 06/18/20 06/18/20 06/18/20 06:59 14:59 22:59 Intake Total 1813.708 / 4941.450 362.655 / 362.655 105.3 / 467.955 Output Total 825 / 3725 350 / 350 Balance 988.708 / 1216.450 12.655 / 12.655 105.3 / 117.955 Weight last 48 hrs Weight 174 lb 4.8 oz Weight 166 lb Physical Exam Narrative: EXAM NARRATIVE: General: Patient is intubated and sedated Respiratory: Auscultation: Crackles at bilateral lung bases, no wheezing occasional rhonchi Cardiovascular: Regular rate and rhythm, S1-S2 present, no murmur, peripheral edema. Abdomen: Soft, positive bowel sound Skin: No rash Neuro: Patient is sedated, unresponsive to verbal stimulus Urinary Catheter Management^: Mondragon: Cath Placed During This Visit: yes Reason for Continuing Indwelling Catheter: Accurate Measurement of Urinary Output in Critically Ill Patients Urinary Catheter Date of Insertion: 06/01/20 Urinary Catheter Time of Insertion: 22:10 Data Micro: Micro: Microbiology 06/14/20 14:45 Urine Culture - Fi nal Urine Catheterize d Abeba albican s Other Data: Attestation for Other Data: I personally reviewed and interpreted the following: Other data: I have reviewed the patient's laboratory, microbiologic and radiologic data. Please see the HPI for detail A&P Assessment and plan (1) ARDS (adult respiratory distress syndrome): The patient has ARDS secondary to COVID-19 pneumonia. His oxygen requirement remains to be high and is variable. The patient is 84 years old with multiple comorbidities and is likely to have a poor outcome. Based on the literature, 85% of patients at the age of 80 or above who required mechanical ventilation eventually . The patient also has evidence of renal dysfunction. He has been intubated twice so far. The patient is easily desaturating with positional changes. I do not expect him to be ready for extubation anytime in the near future. At this point, the primary decision would be focusing on his comfort versus tracheostomy and possible care in a long-term facility. The patient is also requiring norepinephrine and vasopressin. He is broadly covered with antibiotics. I would recommend discontinuing the right internal jugular vein central line and inserting a PICC line. An NG tube would be beneficial for enteric feeding rather than TPN. Once the family decides on the future course of events will act accordingly. Importantly, the patient was DNI prior to his hospital admission on June 01. Status: Acute (2) Pneumonia due to COVID-19 virus: Status: Acute (3) Acute worsening of stage 3 chronic kidney disease: Status: Acute Coding Level of Care Code Acute Geophysical Laboratory Supervisor for [facility] Diagnoses ARDS (adult respiratory distress syndrome) J80 Pneumonia due to COVID-19 virus U07.1; J12.89 Acute worsening of stage 3 chronic kidney disease N18.30
[2020-06-18 16:53] LABS: Glucose Point of Care 146 mg/dL (70-110)
[2020-06-18 17:33] LABS: ABG PCO2 58.3 mmHg (35-45); Arterial Blood Gas Hematocrit 32.4 % (42-52); Base Excess ABG -5.9 mmol/L (-2.0-2.0); Blood Gas Allen Test Pos; Blood Gas Sample Site Radial, left; Blood Gas Sample Type Arterial; Carboxyhemoglobin 1.4 %THgb (0.4-20.1); HCO3 ABG 22.5 mmol/L (22-26); HGB O2 Sat 90.8 % (95-100); Oxygen Device VENT; PO2 ABG 61.1 mmHg (80.0-100.0); Total Hemoglobin 10.6 g/dL (14-18)
[2020-06-18 18:07] LABS: NT Pro B Type Natriuretic Pept 2928 pg/mL (0-450); Procalcitonin 0.79 ng/mL (0-0.5)
[2020-06-18 18:17] LABS: Lactate Dehydrogenase 421 U/L (135-225)
--- NOTE | 2020-06-18 19:00 | PC.NURSE ---
Patient with low temp this am, rachele rivera on per night baker nurse. Rounded with Dr. Montana. Discussed medications, labs, vital signs, ABG, and plan of care. Orders to DC IVF, give IV lasix, turn fentanyl down. Discussed that patient does not have an OG/NG tube d/t difficult insertion. Orders to change steroids to IV. Requested doctor to call family for full update and to make decisions on plan of care. Rachele rivera dc'd at 1245 when patient's temp was 98.6.
--- NOTE | 2020-06-18 20:08 | PC.NURSE ---
MAR represents norepinephrine drip as given in mcg/hr. Dose is measured and given in mcg/min. Pt's dose is currently at 6mcg/min or 22mL/hr.
[2020-06-18] MEDS: fluconazole premix 200 MG/100 ML PREMIX 100 MG IV (20:23)
[2020-06-19] VITALS (96 sets, daily range): BP systolic 80–133; BP diastolic 46–68; PULSE 63–119; RESP 20–25; TEMP 34.7–37.1; O2SAT 87–97
[2020-06-19 00:46] LABS: Iron 53 ug/dL (59-158); Percent Saturation 54.6 % (20-50); Total Iron Binding Capacity 97 mcg/dl; Unsaturated Iron Binding 44 ug/dL (112-347)
[2020-06-19] MEDS: dexmedetomidine 400 MCG in sodium chloride 0.9% (100 ml) 100 ML 16.1 MCG IV (01:00)
[2020-06-19 01:09] LABS: Glucose Point of Care 209 mg/dL (70-110)
[2020-06-19] MEDS: linezolid premix 600 MG/300 ML PREMIX 300 MG IV ×2 (04:17→15:31)
[2020-06-19 04:26] LABS: ABG PCO2 57.7 mmHg (35-45); ABG PH Result 7.22 (7.35-7.45); Arterial Blood Gas Hematocrit 42.4 % (42-52); Base Excess ABG -5.1 mmol/L (-2.0-2.0); Blood Gas Allen Test Pos; Blood Gas Sample Type Arterial; HCO3 ABG 23.5 mmol/L (22-26); PO2 ABG 63.7 mmHg (80.0-100.0)
[2020-06-19 04:29] LABS: Blood Gas Operator Identificat HARKR; Blood Gas Sample Site Radial, left; Oxygen Device VENT
[2020-06-19 05:35] LABS: Basophils % 0.3 %; Eosinophils % 0.1 %; Hemoglobin 9.4 g/dL (11.7-16.6); Lymphocytes # 0.2 10^3/uL (0.8-4.8); Lymphocytes % 2.5 %; Mean Corpuscular HGB Conc 30.3 g/dL (30.0-36.0); Mean Corpuscular Hemoglobin 27.8 pg (28.0-34.0); Mean Corpuscular Volume 91.7 fL (80-94); Mean Platelet Volume 12.8 fL (7.4-10.4); Monocytes # 0.1 10^3/uL (0.2-0.9); Monocytes % 1.1 %; Neutrophils # 7.38 10^3/uL (1.8-7.7); Neutrophils % 93.2 %; Nucleated Red Blood Cells % 0 %; Platelet Count 79 10^3/cmm (130-400); Red Blood Count 3.38 10^6/uL (4.1-5.3); White Blood Count 7.9 10^3/uL (4.0-10.0)
[2020-06-19 05:53] LABS: Glucose Point of Care 280 mg/dL (70-110)
[2020-06-19 05:58] LABS: Creatine Phosphokinase 74 U/L (39-308); Ferritin 818 ng/mL (30-400); Lactate Dehydrogenase 367 U/L (135-225)
[2020-06-19 05:59] LABS: Alanine Aminotransferase 8 U/L (0-41); Albumin Level 1.5 g/dL (3.5-5.2); Alkaline Phosphatase 111 IU/L (40-130); Anion Gap 10.2 (5-19); Aspartate Amino Transferase 10 U/L (0-40); Blood Urea Nitrogen 63 mg/dL (8-23); Calcium 7.6 mg/dL (8.5-10.5); Carbon Dioxide 24 mmol/L (22-29); Chloride 108 mmol/L (98-107); Fibrinogen 644 mg/dL (174-498); Globulin 2.9 g/dL (1.3-4.6); Glucose 249 mg/dL (65-115); Osmolality Calculated 312 mOsm/kg (285-295); Potassium 4.2 mmol/L (3.5-5.1); Sodium 138 mmol/L (136-145); Total Bilirubin 0.3 mg/dL (0.15-1.2); Total Protein 4.4 g/dL (6.6-8.7)
--- NOTE | 2020-06-19 06:00 | XR_ITS ---
WS: [id number] Portable AP upright chest, 06/19/2020 Clinical Data: covid Comparison: Portable chest, 06/18/2020 Findings: The bilateral pulmonary opacities remain the same. The heart size is normal. Endotracheal t ube and internal jugular venous catheter remain in same position. There are monitor leads on the ches t wall. XR/XR chest 1V portable [id number] Impression: No change in tube position and bilateral pulmonary opacities.
[2020-06-19 06:09] LABS: Slide Review Slide Review Perform
--- NOTE | 2020-06-19 06:28 | PC.NURSE ---
Pt had temp of 94.5F this lilian rivera again applied. Temp now 97.9F. Will notify
[2020-06-19] MEDS: heparin 5,000 unit/mL INJ 1 mL 5000 UNIT SUBCUT ×2 (09:16→20:40)
--- NOTE | 2020-06-19 10:52 | PM.PN ---
Subjective Subjective: Interval history: The patient was seen and examined. We were able to cut down on his sedation regimen. However, the patient is not yet responsive. His norepinephrine requirement has come down. His white count has also improved. Medications: Reviewed: Yes Vitals/I&O/Wt Last Vital Signs Temp 97.7 F 06/19/20 07:00 Pulse 92 06/19/20 08:27 Resp 24 H 06/19/20 10:13 BP 104/53 06/19/20 08:15 Pulse Ox 96 06/19/20 08:27 06/18/20 06/19/20 06/19/20 22:59 06:59 14:59 Intake Total 1931.083 / 2293.738 526.737 / 2820.475 55.43 / 55.43 Output Total 1550 / 1900 900 / 2800 Balance 381.083 / 393.738 -373.263 / 20.475 55.43 / 55.43 Weight last 48 hrs Weight 177 lb 9.6 oz Weight 174 lb 4.8 oz Physical Exam Narrative: EXAM NARRATIVE: General: Patient is intubated and sedated Respiratory: Auscultation: Crackles at bilateral lung bases, no wheezing occasional rhonchi Cardiovascular: Regular rate and rhythm, S1-S2 present, no murmur, peripheral edema. Abdomen: Soft, positive bowel sound Skin: No rash, anasarca Neuro: Patient is sedated, unresponsive to verbal stimulus Urinary Catheter Management^: Mondragon: Cath Placed During This Visit: yes Reason for Continuing Indwelling Catheter: Accurate Measurement of Urinary Output in Critically Ill Patients Urinary Catheter Date of Insertion: 06/01/20 Urinary Catheter Time of Insertion: 22:10 Data : 06/19/20 03:30 06/19/20 03:30 Micro: Microbiology 06/18/20 21:20 Gram Stain - Final Sputum - Endotracheal Tube Aspirate 06/13/20 00:10 Blood Culture - Final Blood NO GROWTH AFTER 5 DAYS 06/13/20 23:45 Blood Culture - Final Blood NO GROWTH AFTER 5 DAYS 06/18/20 16:45 Blood Culture - Preliminary Blood SPECIMEN COLLECTED 06/18/20 16:30 Blood Culture - Preliminary Blood SPECIMEN COLLECTED Attestation for Other Data: I personally reviewed and interpreted the following: Other data: I have reviewed the patient laboratory microbiologic and radiologic data. His WBC count has dropped to 7.9 from 14.5 yesterday. Chest x-ray obtained this morning revealed bilateral infiltrate A&P Assessment and plan (1) ARDS (adult respiratory distress syndrome): The patient has ARDS secondary to COVID-19 pneumonia. His oxygen requirement remains to be high and is variable. Currently the patient is on 60% oxygen. I have trended down to 50%. The patient is 84 years old with multiple comorbidities and is likely to have a poor outcome. Based on the literature, 85% of patients at the age of 80 or above who required mechanical ventilation eventually . The patient also has evidence of renal dysfunction. He has been intubated twice so far. The patient is easily desaturating with positional changes. I do not expect him to be ready for extubation anytime in the near future. The plan is to have a family meeting today. The patient will need a tracheostomy and a PEG tube placement if continuation of care is planned otherwise the focus of care would be on making sure he is comfortable. However, given the patient's presickness quality of life it is very unlikely that the patient will achieve independence following this illness. Would recommend changing the central line to a PICC line if continuation of care is the plan. I had be happy to perform the tracheostomy at bedside if that turns out to be the plan. Status: Acute (2) Pneumonia due to COVID-19 virus: Status: Acute Attestations Medical Necessity Statement*: Will defer to the primary team Coding Level of Care Code Acute Coffee Sommelier for [facility] Diagnoses ARDS (adult respiratory distress syndrome) J80 Pneumonia due to COVID-19 virus U07.1; J12.89
[2020-06-19 11:40] LABS: Glucose Point of Care 182 mg/dL (70-110)
[2020-06-19] MEDS: FUROsemide 10 mg/mL SDV 4mL 40 MG IVP (11:42)
[2020-06-19] MEDS: AA-Dex 5%-20% w/Lytes 1,000 ML 83 ML IV (11:58)
[2020-06-19] MEDS: dexmedetomidine 400 MCG in sodium chloride 0.9% (100 ml) 100 ML 11.5 MCG IV (11:58)
--- NOTE | 2020-06-19 14:32 | PM.PN ---
Subjective Subjective: Interval history: No acute events overnight. Patient continues to be intubated and sedated with fentanyl, Precedex, Versed for sedation. Currently he is on ventilator support with PEEP of 12, tidal volume of 500, FiO2 of 70% saturating 92%. ABG and blood work appreciated. Patient is also on Levophed of 1 to maintain his mean blood pressures over 60. Medications: Reviewed: Yes Vitals/I&O/Wt Last Vital Signs Temp 98.8 F 06/19/20 11:30 Pulse 98 06/19/20 14:00 Resp 22 H 06/19/20 13:23 BP 117/60 06/19/20 14:00 Pulse Ox 91 06/19/20 14:00 06/18/20 06/19/20 06/19/20 22:59 06:59 14:59 Intake Total 1931.083 / 2293.738 526.737 / 2820.475 1121.588 / 1121.588 Output Total 1550 / 1900 900 / 2800 450 / 450 Balance 381.083 / 393.738 -373.263 / 20.475 671.588 / 671.588 Weight last 48 hrs Weight 80.558 kg Weight 79.061 kg Physical Exam Narrative: EXAM NARRATIVE: General: Intubated, sedated. HEENT: PERRLA, pupils bilaterally equal and reactive Chest: Bilateral coarse crackles present all over the lungs, bilateral rhonchi present. CVS: S1-S2 regular, no murmurs, no tachycardia, no gallops, no rubs Abdomen: Soft, nontender, no organomegaly, bowel sounds present Neuro: Sedated. Urinary Catheter Management^: Mondragon: Cath Placed During This Visit: yes Reason for Continuing Indwelling Catheter: Accurate Measurement of Urinary Output in Critically Ill Patients Urinary Catheter Date of Insertion: 06/01/20 Urinary Catheter Time of Insertion: 22:10 Data : 06/19/20 03:30 06/19/20 03:30 Micro: Microbiology 06/18/20 21:20 Gram Stain - Final Sputum - Endotracheal Tube Aspirate 06/13/20 00:10 Blood Culture - Final Blood NO GROWTH AFTER 5 DAYS 06/13/20 23:45 Blood Culture - Final Blood NO GROWTH AFTER 5 DAYS 06/18/20 16:45 Blood Culture - Preliminary Blood SPECIMEN COLLECTED 06/18/20 16:30 Blood Culture - Preliminary Blood SPECIMEN COLLECTED A&P Assessment and plan (1) Sepsis associated hypotension: Status: Acute (2) ARDS (adult respiratory distress syndrome): Status: Acute (3) Encephalopathy: Status: Acute (4) Pneumonia: Status: Acute Qualifiers: Laterality: bilateral Lung location: unspecified part of lung Pneumonia type: due to unspecified organism Qualified Code(s): J18.9 - Pneumonia, unspecified organism (5) COVID-19 virus infection: Status: Acute (6) Acute worsening of stage 3 chronic kidney disease: Status: Acute (7) Adult failure to thrive: Status: Acute (8) Hypernatremia: Status: Acute (9) Atrial fibrillation with RVR: Status: Acute (10) Ventilator dependence: Status: Acute ARDS with septic shock because of COVID-19 pneumonia with possible superadded bacterial infection: Second intubation on June 13. ABG noted. Keep sedated with fentanyl propofol and Precedex. Wean Levophed keeping mean arterial pressure over 65. Currently patient is on linezolid, imipenem, fluconazole. For now we will continue the same and finish the course of antimicrobials for 7 days. Patient has leukocytosis, was hypothermic in morning. Check blood culture, sputum culture, MRSA swab, procalcitonin, Fungitell, LDH, proBNP. Appreciate recommendations from Dr. Arevalo. Patient does not have an NG tube. Continue with IV dexamethasone 6 mg daily for now. Urine culture growing Abeba albicans. Continue with Diflucan. Last blood culture from June 13 normal, sputum culture from June 02 within normal limits. -A.FIB with RVR :2/2 to sepsis and Hypoxemia Rate controlled for now. Continue telemetry. - Hypovolemic Hypernatremia: Resolved. Continue to monitor daily. Stop D5 half NS for now. Patient is mildly fluid overloaded. Acute on chronic stage 2-3 kidney failure - Likely 2/2 sepsis /ATN 2/2 obstructive uropathy Baseline creatinine ranging from 1.2-1.4. Continue to monitor renal functions daily. 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 Start patient on Protonix 40 mg IV twice daily. We will avoid full dose anticoagulation for now. Continue with heparin 5000 every 12. Additional Medical History - Hypertnesion - Dyslpididemia - Advanced dementia - Obstructive sleep apnea - Large Hiatal Her melvi - Hx of Closed Head injury Nutrition: Continue with TPN. We will try to get an NG tube for taking start vomiting. Stop TPN. Heparin for DVT prophylaxis. Protonix DVT prophylaxis. Severely guarded prognosis. Had a family meeting with patient's , daughter Ms. Parker, other family members over phone. Discussed severely guarded prognosis of Mr. Ortiz because of severe ARDS, second prolonged intubation during the course of last 18 days, increasing ventilator support, ALISE and need of Levophed to maintain blood pressures. We discussed 2 options in detail with one option being patient most likely requiring PEG and trach going forward as patient would not most likely the ventilator dependent as per pulmonology recommendations if he survives. In that case patient would be getting discharged eventually to a facility where he can be taken care of with ventilator and tracheostomy. Also discussed unfortunately there is no facility in vicinity who can take care of patients on ventilator with tracheostomy. The other option we discussed it is hospice/comfort care and eventual terminal extubation with nature taking its own course. Family states they understand both the options. All the questions were answered. They state they will talks amongst each other and will get back to us regarding further goals of care. CODE STATUS for now full code. Attestations Medical Necessity Statement*: Patient requires further hospitalization for management of ARDS and septic shock because of COVID-19 pneumonia, ventilator dependent. Critical Care Time: Critical Care Time (min): 70 Coding Level of Care Code Acute Attraction Attendant for [facility] Fwd Diagnoses Sepsis associated hypotension A41.9; I95.9 ARDS (adult respiratory distress syndrome) J80 Encephalopathy G93.40 Pneumonia J18.9 Laterality: bilateral Lung location: unspecified part of lung Pneumonia type: due to unspecified organism COVID-19 virus infection U07.1 Acute worsening of stage 3 chronic kidney disease N18.30 Adult failure to thrive R62.7 Hypernatremia E87.0 Atrial fibrillation with RVR I48.91 Ventilator dependence Z99.11
[2020-06-19] MEDS: pantoprazole 40 mg SDV IV (15:31)
[2020-06-19] MEDS: dexamethasone 4 mg/mL INJ 6 MG IVP (15:31)
[2020-06-19 17:42] LABS: Glucose Point of Care 206 mg/dL (70-110)
--- NOTE | 2020-06-19 18:50 | PC.NURSE ---
1030 Dr. Arevalo at bedside. Discussed family wishes for plan of care and fluid balance. Orders for 40 IV [address] Montana, orders to turn off Precedex and increase Fentanyl. Ok to resume for comfort. 1610 Precedex turned back on d/t elvated heart rate. 1704 Spoke to Mrs. Ortiz who stated that she wishes to make patient comfort care tomorrow at noon when the family can be at bedside. [address] Montana on family plan for tomorrow.
[2020-06-19] MEDS: ipratropium-albuterol 3 mL Neb INHALATION ×2 (19:45→23:38)
[2020-06-19] MEDS: fluconazole premix 200 MG/100 ML PREMIX 100 MG IV (20:40)
[2020-06-20] VITALS (33 sets, daily range): BP systolic 92–148; BP diastolic 49–67; PULSE 77–116; RESP 21–28; TEMP 36.4; O2SAT 92–96
[2020-06-20] MEDS: dexmedetomidine 400 MCG in sodium chloride 0.9% (100 ml) 100 ML 16.1 MCG IV ×2 (00:06→08:32)
[2020-06-20 00:12] LABS: Glucose Point of Care 219 mg/dL (70-110)
[2020-06-20] MEDS: AA-Dex 5%-20% w/Lytes 1,000 ML 83 ML IV (00:44)
[2020-06-20] MEDS: linezolid premix 600 MG/300 ML PREMIX 300 MG IV (03:18)
[2020-06-20] MEDS: ipratropium-albuterol 3 mL Neb INHALATION ×3 (03:48→11:22)
[2020-06-20 04:44] LABS: Fibrinogen 539 mg/dL (174-498)
[2020-06-20 04:48] LABS: D Dimer 2.22 ug/mIFEU (0-0.59)
[2020-06-20 04:56] LABS: Creatine Phosphokinase 44 U/L (39-308); Ferritin 732 ng/mL (30-400); Lactate Dehydrogenase 358 U/L (135-225)
[2020-06-20 05:50] LABS: Glucose Point of Care 293 mg/dL (70-110)
[2020-06-20] MEDS: heparin 5,000 unit/mL INJ 1 mL 5000 UNIT SUBCUT (09:25)
--- NOTE | 2020-06-20 12:03 | PC.SOCIAL ---
IMM Not Given IMM Not updated. Pt is not within 48hrs of d/c. Dr is going to discuss with family today about comfort care vs trach/Peg tube placement.
[2020-06-20] MEDS: LORazepam 2 mg/mL INJ 1 mL IVP ×4 (13:13→15:18)
[2020-06-20] MEDS: morphine 4 mg/mL SDV 1 mL IVP ×8 (13:13→18:05)
[2020-06-20] MEDS: famotidine 20 mg/2 mL INJ IVP (17:05)
--- NOTE | 2020-06-20 17:56 | PC.NURSE ---
1230 Dr. Montana and family at bedside. Orders to turn off all IV medications. Restraints removed. 1350 Orders to DC all non-comfort care medications and interventions. [facility] notified. 1415 PT extubated to [facility]. Comfort care medications administered per protocol. [address] Montana. Reported time of extuation, 1415. Discussed comfort care medications, orders to give morphine Q 15 min, and Ativan Q 30 min for comfort. 1813 PT asystole. Time of verified with Taty Lemus RN per apical auscultation. Dr. Montana notified. 1825 [facility] notified. Reference number [id number].
--- NOTE | 2020-06-20 18:05 | P.PN_ITS ---
Subjective Subjective: Interval history: No acute events overnight. Overnight patient has remained on same ventilator setting and has remained hemodynamically stable and afebrile. On examination patient is saturating 92% on 50% FiO2. He still on Levophed to maintain his mean arterial pressure over 65. Family came at bedside at around 12 PM and decided about making patient comfort care and decided about terminal extubation with goals of care going forward off being comfort measures only. Medications: Reviewed: Yes Vitals/I&O/Wt Last Vital Signs Temp 97.6 F 06/20/20 07:00 Pulse 116 H 06/20/20 15:00 Resp 27 H 06/20/20 11:23 BP 118/51 06/20/20 15:00 Pulse Ox 95 06/20/20 14:00 06/20/20 06/20/20 06/20/20 06:59 14:59 22:59 Intake Total 1795.717 / 4657.896 1167.375 / 1167.375 Output Total 750 / 2550 600 / 600 Balance 1045.717 / 2107.896 567.375 / 567.375 Weight last 48 hrs Weight 80.558 kg Physical Exam Narrative: EXAM NARRATIVE: General: Intubated, sedated. HEENT: PERRLA, pupils bilaterally equal and reactive Chest: Bilateral coarse crackles present all over the lungs, bilateral rhonchi present. CVS: S1-S2 regular, no murmurs, no tachycardia, no gallops, no rubs Abdomen: Soft, nontender, no organomegaly, bowel sounds present Neuro: Sedated. Urinary Catheter Management^: Mondragon: Cath Placed During This Visit: yes Reason for Continuing Indwelling Catheter: Hospice/Comfort/Palliative Care Urinary Catheter Date of Insertion: 06/01/20 Urinary Catheter Time of Insertion: 22:10 Data : 06/19/20 03:30 06/19/20 03:30 Micro: Microbiology 06/18/20 21:20 Gram Stain - Final Sputum - Endotracheal Tube Aspirate Sputum Culture - Preliminary Yeast 06/18/20 16:45 Blood Culture - Preliminary Blood NEGATIVE TO DATE 06/18/20 16:30 Blood Culture - Preliminary Blood NEGATIVE TO DATE A&P Assessment and plan (1) Sepsis associated hypotension: Status: Acute (2) ARDS (adult respiratory distress syndrome): Status: Acute (3) Encephalopathy: Status: Acute (4) Pneumonia: Status: Acute Qualifiers: Laterality: bilateral Lung location: unspecified part of lung Pneumonia type: due to unspecified organism Qualified Code(s): J18.9 - Pneumonia, unspecified organism (5) COVID-19 virus infection: Status: Acute (6) Acute worsening of stage 3 chronic kidney disease: Status: Acute (7) Adult failure to thrive: Status: Acute (8) Hypernatremia: Status: Acute (9) Atrial fibrillation with RVR: Status: Acute (10) Ventilator dependence: Status: Acute As per the discussion with family regarding goals of care patient's CODE STATUS has been changed to comfort measures only. Patient was terminally extubated at around 2:15 PM. Going forward no blood work. Medications have been changed as per comfort care protocol. Ativan and morphine as needed for air hunger. Scopolamine for excess secretions. Family is at bedside. ARDS with septic shock because of COVID-19 pneumonia with possible superadded bacterial infection: Second intubation on June 13. ABG noted. Keep sedated with fentanyl propofol and Precedex. Wean Levophed keeping mean arterial pressure over 65. Currently patient is on linezolid, imipenem, fluconazole. For now we will dagoberto nue the same and finish the course of antimicrobials for 7 days. Patient has leukocytosis, was hypothermic in morning. Check blood culture, sputum culture, MRSA swab, procalcitonin, Fungitell, LDH, proBNP. Appreciate recommendations from Dr. Arevalo. Patient does not have an NG tube. Continue with IV dexamethasone 6 mg daily for now. Urine culture growing Abeba albicans. Continue with Diflucan. Last blood culture from June 13 normal, sputum culture from June 02 within normal limits. -A.FIB with RVR :2/2 to sepsis and Hypoxemia Rate controlled for now. Continue telemetry. - Hypovolemic Hypernatremia: Resolved. Continue to monitor daily. Stop D5 half NS for now. Patient is mildly fluid overloaded. Acute on chronic stage 2-3 kidney failure - Likely 2/2 sepsis /ATN 2/2 obstructive uropathy Baseline creatinine ranging from 1.2-1.4. Continue to monitor renal functions daily. 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 Start patient on Protonix 40 mg IV twice daily. We will avoid full dose anticoagulation for now. Continue with heparin 5000 every 12. Additional Medical History - Hypertnesion - Dyslpididemia - Advanced dementia - Obstructive sleep apnea - Large Hiatal Her melvi - Hx of Closed Head injury Nutrition: Continue with TPN. We will try to get an NG tube for taking start vomiting. Stop TPN. Heparin for DVT prophylaxis. Protonix DVT prophylaxis. Severely guarded prognosis. Had a family meeting with patient's , daughter Ms. Parker, other family members over phone. Discussed severely guarded prognosis of Mr. Ortiz because of severe ARDS, second prolonged intubation during the course of last 18 days, increasing ventilator support, ALISE and need of Levophed to maintain blood pressures. We discussed 2 options in detail with one option being patient most likely requiring PEG and trach going forward as patient would not most likely the ventilator dependent as per pulmonology recommendations if he survives. In that case patient would be getting discharged eventually to a facility where he can be taken care of with ventilator and tracheostomy. Also discussed unfortunately there is no facility in vicinity who can take care of patients on ventilator with tracheostomy. The other option we discussed it is hospice/comfort care and eventual terminal extubation with nature taking its own course. Family states they understand both the options. All the questions were answered. They state they will talks amongst each other and will get back to us regarding further goals of care. CODE STATUS for now full code. Attestations Medical Necessity Statement*: Patient requires further hospitalization for comfort measures only as per the goals of care changes done today. Time Spent in Patient Care: Greater than 35 minutes (>than 50% of time spent in counselling and/or direct pt care on unit) . Coding Level of Care Code Acute Asp Net Programmer for [facility] Fwd Diagnoses Sepsis associated hypotension A41.9; I95.9 ARDS (adult respiratory distress syndrome) J80 Encephalopathy G93.40 Pneumonia J18.9 Laterality: bilateral Lung location: unspecified part of lung Pneumonia type: due to unspecified organism COVID-19 virus infection U07.1 Acute worsening of stage 3 chronic kidney disease N18.30 Adult failure to thrive R62.7 Hypernatremia E87.0 Atrial fibrillation with RVR I48.91 Ventilator dependence Z99.11
--- NOTE | 2020-06-20 18:21 | P.DES_ITS ---
Discharge Providers DDS Date of Admission: 06/01/20 17:52 Date Summary Completed: 06/20/20 Attending Provider at Admission: Zeynep Banuelos Time of : 18:13 Attending Provider at Discharge: Nakul Montana MD Primary Care Provider: DO MINI Meredith Diagnoses Hospital Diagnoses (1) Sepsis associated hypotension: (2) ARDS (adult respiratory distress syndrome): (3) Encephalopathy: (4) Pneumonia: Qualifiers: Laterality: bilateral Lung location: unspecified part of lung Pneumonia type: due to unspecified organism Qualified Code(s): J18.9 - Pneumonia, unspecified organism (5) COVID-19 virus infection: (6) Acute worsening of stage 3 chronic kidney disease: (7) Adult failure to thrive: (8) Hypernatremia: (9) Atrial fibrillation with RVR: (10) Ventilator dependence: Reason for Visit Reason for Visit: POSSIBLE STROKE Summary Date and Time of Date of : 06/20/20 Time of : 18:13 Summary Summary: 84-year-old male with a past medical history significant significant for closed head injury, osteoporosis, anxiety, depression, iron deficiency knee anemia, obstructive sleep apnea, hiatal hernia,hyperlipidemia,, hypertension, chronic stage 3 kidney disease s/p prior right nephrectomy, jehovah witness with prior GI bleed (refused transfusions in the past) and advanced dementia who presented to the hospital with generalized weakness. Patient does not communicate and at baseline is confused due to dementia. He was not able to provide history which was obtained from review of records and discussion with ER staff. Patient upon arrival to ER his initial laboratory workup showed a WBC of 12.6, hemoglobin of 13.7, hematocrit of 43.3 and platelet count of 175. INR of 0.83. Sodium 140, potassium 3.9, chloride 103, bicarb 25, BUN 25 and creatinine 1.5. Prior creatinine in 2018 was 1.3. AST of 45, ALT of 21, ALP of 122, CRP of 131. ProNBP of 1441 and a procalcitonin of 0.69. COVID-19 ag was found to be positive. Imaging studies included a CT head without contrast which did not show any evidence of acute intra-cranial abnormality. Chest x-ray was then performed which showed bilateral rates most marked on the right. Was noted to be hypoxic with O2 sats in low to mid 80s. He was also tachypneic with a blood pressure of 88/61. Was placed on 15L o2 via NRB. ABG after this intervention showed a pH 7.33, pCO2 49.0, PO2 of 61.5 and bicarb 25.9. Oxygen saturation ABG was 90.8. Patient had long hospitalization was admitted on June 01. Hospitalization patient was intubated twice. His hospitalization was complicated by development of ARDS, atrial fibrillation, encephalopathy, failure to thrive, ventilator dependence, hypernatremia. Multiple family meetings were done for goals of care discussion. As per the goals of care discussion on June 19 with patient's and family members on phone they decided for comfort measures only to be done on June 20. They stated that patient would not want any PEG or trach. Patient was terminally extubated with comfort measures only at around 2:15 PM on June 20 and at 1813 with family at bedside. Additional Data Confirmation of as documented by pronouncing clinician: no pulse Family: at bedside Additional persons at bedside: nursing staff Attending/PCP notified?: I am attending Was code activated?: No Autopsy requested?: No Advance directives?: No Hospice patient?: No Discharge Plan Discharge Patient Disposition: Home Condition: Stable Prescriptions: No Action ibuprofen 200 mg Tablet 200 mg PO Q6H PRN (Reason: Pain) RF: 0 simvastatin 20 mg tablet 20 mg PO DAILY RF: 0 finasteride 5 mg tablet 5 mg PO DAILY RF: 0 hydrocodone-acetaminophen 5-325 mg tablet 1 tab PO Q4H PRN (Reason: Pain) RF: 0 alprazolam 0.5 mg tablet 0.5 mg PO BID PRN (Reason: Anxiety) RF: 0 pantoprazole 40 mg tablet,delayed release (DR/EC) 40 mg PO PRN RF: 0 ferrous sulfate [iron] 325 mg (65 mg iron) Tablet 325 mg PO DAILY RF: 0 aspirin 81 mg Tablet,Chewable 81 mg PO DAILY RF: 0 Adult Multivitamin Gummies 200 mcg Tablet,Chewable 200 mcg PO DAILY@0900 RF: 0 Neuriva 1 tab PO DAILY RF: 0 Zofran 1 tab PO PRN RF: 0 Referrals: Roland Pinto DO [Primary Care Provider] - DS Attestations Time Spent in /Discharge Care*: greater than 30 min Quality - AMI: AMI present?: No Quality - Stroke: CVA present?: No Symptom Onset Unknown: No Quality - VTE: VTE present?: No Deep Vein Thrombosis/Pulmonary Embolism Present on Admission: No Coding Level of Care Code Acute Abrading Machine Tender for [facility] Fwd Diagnoses Sepsis associated hypotension A41.9; I95.9 ARDS (adult respiratory distress syndrome) J80 Encephalopathy G93.40 Pneumonia J18.9 Laterality: bilateral Lung location: unspecified part of lung Pneumonia type: due to unspecified organism COVID-19 virus infection U07.1 Acute worsening of stage 3 chronic kidney disease N18.30 Adult failure to thrive R62.7 Hypernatremia E87.0 Atrial fibrillation with RVR I48.91 Ventilator dependence Z99.11
--- NOTE | 2020-06-20 19:46 | PC.NURSE ---
Wasted 75 ml of versed and 15 ml fentanyl with Dalila Martinez RN.
--- NOTE | 2020-06-21 03:57 | PC.NURSE ---
HOME Abdelrahman Arroyo from [facility] came to cook pickled meat patients body at approximately 2100. Appropriate paperwork sent with Abdelrahman.
[2020-06-23 21:59] LABS: Fungitell 1-3-B Glucan Assay 158 pg/mL; Interpretation POSITIVE
== END 2020-06-20 18:13 | disposition expired | DRG 870 ==
LOC: ER 17:50 → ICU 18:52
PROVIDERS: Hospitalist; Internal Medicine; Internal Medicine Pulmonary Disease; Admitting Provider Hospitalist; Emergency Provider Family Medicine; PCP Internal Medicine; Visit Provider Student in an Organized Health Care Education/Training Program
DX: A41.9 Sepsis, unspecified organism (principal); U07.1 COVID-19; J96.01 Acute respiratory failure with hypoxia; J12.82 Pneumonia due to coronavirus disease 2019; R65.21 Severe sepsis with septic shock; J15.9 Unspecified bacterial pneumonia; N17.0 Acute kidney failure with tubular necrosis; K92.2 Gastrointestinal hemorrhage, unspecified; G93.40 Encephalopathy, unspecified; E87.0 Hyperosmolality and hypernatremia; Z99.11 Dependence on respirator [ventilator] status; R62.7 Adult failure to thrive; Z66 Do not resuscitate; Z51.5 Encounter for palliative care; Z68.25 Body mass index [BMI] 25.0-25.9, adult; Z87.19 Personal history of other diseases of the digestive system; F03.90 Unspecified dementia, unspecified severity, without behavioral disturbance, psychotic disturbance, mood disturbance, and anxiety; N18.30 Chronic kidney disease, stage 3 unspecified; I48.91 Unspecified atrial fibrillation; F41.8 Other specified anxiety disorders; E78.5 Hyperlipidemia, unspecified; D50.9 Iron deficiency anemia, unspecified; G47.33 Obstructive sleep apnea (adult) (pediatric); I12.9 Hypertensive chronic kidney disease with stage 1 through stage 4 chronic kidney disease, or unspecified chronic kidney disease; K44.9 Diaphragmatic hernia without obstruction or gangrene; M81.0 Age-related osteoporosis without current pathological fracture; Z79.82 Long term (current) use of aspirin; N13.9 Obstructive and reflux uropathy, unspecified
CPT/HCPCS: 12345; 36415; 36416; 36592; 36600; 51702; 70450; 71045; 74018; 80048; 80051; 80053; 80202; 81001; 82330; 82550; 82575; 82728; 82803; 82805; 82962; 83540; 83550; 83605; 83615; 83735; 83880; 84145; 84300; 85007; 85025; 85378; 85384; 85610; 86140; 87040; 87070; 87081; 87086; 87106; 87205; 87426; 87449; 87804; 93005; 94002; 94003; 94640; 94660; 94664; 94799; 96372; 99283; A4570; C9113; J0153; J0330; J0456; J0692; J0743; J1100; J1450; J1630; J1644; J1815; J1940; J2020; J2060; J2250; J2270; J2543; J3010; J3105; J3370; J3490; J7030; J7040; J7050; J7799